=== PATIENT | female | born 1995 | race Caucasian/White ===

== ENCOUNTER 2018-11-26 20:22 | Inpatient (IN) | payer BC ==
[2018-11-26 21:01] LABS: Basophils % (A) 0 %; Eosinophils # (A) 0.2 k/uL (0-0.7); Eosinophils % (A) 1 %; HCT 36.9 % (34.0-46.0); HGB 12.4 gm/dL (11.4-16.0); Lymphocytes # (A) 1.4 k/uL (1.0-4.8); Lymphocytes % (A) 11 %; MCH 28.6 pg (25.0-35.0); MCHC 33.7 g/dL (31.0-37.0); Mean Platelet Volume 7.2; Monocytes # (A) 0.6 k/uL (0-1.0); Monocytes % (A) 4 %; Neutrophils % (A) 83 %; Platelet Count 274 k/uL (150-450); RBC 4.34 m/uL (3.80-5.40); RDW 14.2 % (11.5-15.5); WBC 13.3 k/uL (3.8-10.6)
[2018-11-26 21:16] LABS: Appearance,Urine Clear (Clear); Bilirubin,Urine Negative (Negative); Blood,Urine Moderate (Negative); Color,Urine Yellow; Glucose,Urine (UA) Negative (Negative); Ketones,Urine 4+ (Negative); Leukocyte Esterase,Urine Small (Negative); Mucus,Urine Rare /hpf; Nitrite,Urine Negative (Negative); Protein,Urine Trace (Negative); RBC,Urine 10 /hpf (0-5); Specific Gravity,Urine 1.023 (1.001-1.035); Squamous Epithelial Cell,Urine <1 /hpf (0-4); Urobilinogen,Urine <2.0 mg/dL (<2.0); WBC,Urine 1 /hpf (0-5)
[2018-11-26 21:20] LABS: Partial Thromboplastin Time 26.1 sec (22.0-30.0); Prothrombin Time 10.4 sec (9.0-12.0)
[2018-11-26 21:25] LABS: ALT 20 U/L (9-52); AST 23 U/L (14-36); African American GFR (CKD) >90 (>60 ml/min/1.73 sqM); Albumin 4.4 g/dL (3.5-5.0); Alkaline Phosphatase 81 U/L (38-126); Anion Gap 13 mmol/L; Blood Urea Nitrogen 14 mg/dL (7-17); Calcium 9.3 mg/dL (8.4-10.2); Carbon Dioxide 20 mmol/L (22-30); Chloride 105 mmol/L (98-107); Glucose 105 mg/dL (74-99); Potassium 4.2 mmol/L (3.5-5.1); Sodium 138 mmol/L (137-145); Total Bilirubin 0.6 mg/dL (0.2-1.3); Total Protein 7.5 g/dL (6.3-8.2)
[2018-11-26] MEDS ORDERED: SODIUM CHLORIDE 0.9% 1,000 ML IV STA ×2 (21:40→21:47)
[2018-11-26] MEDS ORDERED: SODIUM CHLORIDE 0.9% 500 ML 500 ML IV STA (21:40)
--- NOTE | 2018-11-26 23:01 | US ---
EXAM: US Pelvis Transvaginal CLINICAL HISTORY: fever RLQ pain TECHNIQUE: Real-time transvaginal pelvic ultrasound with image documentation. Transvaginal imaging was used for better evaluation of the endometrium and adnexa. COMPARISON: No relevant prior studies available. FINDINGS: Uterus/cervix: 6.7 x 5.2 x 4.2 cm Unremarkable. Normal endometrial stripe thickness 6.3 mm. No myometrial mass. Right ovary: 4.9 x 2.5 x 3.0 cm there is a 2.1 x 1.5 with 1.2 cm dominant follicular cyst. . Normal blood flow. Left ovary: 3.7 x 6.0 x 4.3 cm. There is septations of multiple cysts. These are not measured. There is free fluid around the left adnexa. No evidence for ovarian torsion. Flow. Free fluid: No free fluid. Bladder: Empty bladder which cannot be evaluated with this probe. IMPRESSION: Large cystic area not measured adjacent to the left ovary with septations. This is not clearly part of the left ovary. Free fluid noted adjacent to the left ovary The possibility of a large paraovarian cyst is not excluded. Unremarkable appearance to the right adnexa. No evidence for left or right ovarian torsion.
--- NOTE | 2018-11-26 23:05 | ED ---
General Adult HPI - General Chief complaint: Abdominal Pain Stated complaint: Abd pain Time Seen by Provider: 11/26/18 20:36 Source: patient, RN notes reviewed Mode of arrival: ambulatory Limitations: no limitations - History of Present Illness Initial comments: 23-year-old female presents to the emergency department for a chief complaint of abdominal pain. Patient states pain is mostly in the right lower quadrant. States it has been ongoing for the past 5 days. States the pain has been constant. Patient states she has had intermittent subjective fevers at home and has felt hot and cold on and off. States she also has referred pain to the left upper quadrant. Patient went to urgent care he was sent to the ER for ketones in the urine.Patient has no other complaints at this time including shortness of breath, chest pain, nausea or vomiting, headache, or visual changes. - Related Data Allergies Allergy/AdvReac Type Severity Reaction Status Date / Time No Known Allergies Allergy Verified 11/26/18 20:27 Review of Systems ROS Statement: Those systems with pertinent positive or pertinent negative responses have been documented in the HPI. ROS Other: All systems not noted in ROS Statement are negative. Past Medical History Past Medical History: No Reported History History of Any Multi-Drug Resistant Organisms: None Reported Past Surgical History: Appendectomy Additional Past Surgical History / Comment(s): breast reducion Past Psychological History: No Psychological Hx Reported Smoking Status: Never smoker Past Alcohol Use History: Occasional Past Drug Use History: None Reported General Exam Limitations: no limitations General appearance: alert, in no apparent distress Head exam: Present: atraumatic, normocephalic, normal inspection Eye exam: Present: normal appearance, PERRL, EOMI. Absent: scleral icterus, conjunctival injection, periorbital swelling ENT exam: Present: normal exam, mucous membranes moist Neck exam: Present: normal inspection, full ROM. Absent: tenderness, meningismus, lymphadenopathy Respiratory exam: Present: normal lung sounds bilaterally. Absent: respiratory distress, wheezes, rales, rhonchi, stridor Cardiovascular Exam: Present: regular rate, normal rhythm, normal heart sounds. Absent: systolic murmur, diastolic murmur, rubs, gallop, clicks GI/Abdominal exam: Present: soft, normal bowel sounds. Absent: distended, ten derness, guarding, rebound, rigid External exam: Present: normal external exam. Absent: erythema, swelling, lesions, lacerations, ecchymosis Speculum exam: Present: normal speculum exam. Absent: erythema, vaginal discharge, cervical discharge, vaginal bleeding, foreign body By manual exam: Present: adnexal tenderness (Right and left adnexal tenderness), uterine tenderness. Absent: normal by manual exam Back exam: Absent: CVA tenderness (R), CVA tenderness (L) Course Vital Signs 11/26/18 11/26/18 11/27/18 20:24 22:44 00:31 Temperature 99.5 F Pulse Rate 133 H 95 89 Respiratory 20 16 16 Rate Blood Pressure 138/85 117/68 106/59 O2 Sat by Pulse 97 98 97 Oximetry Medical Decision Making - Medical Decision Making 23-year-old female presents for a chief complaint of abdominal pain. Patient states pain is mostly in the right lower quadrant and has been ongoing for the past 5 days. Agrees it is also suprapubic as well. Patient states the pain has been constant. Patient thinks she has some intermittent fevers at home and has felt hot and cold on and off. Presentation patient was tachycardic at 133 which could be secondary to dehydration as she has 4+ ketones in her urine. Given 2 L of fluids. Afebrile here with a temperature of 99.5. On exam patient has some right lower quadrant and suprapubic tenderness as well as left upper quadrant tenderness. Pelvic exam did reveal uterine and right adnexal tenderness. No significant discharge. CBC and CMP were obtained. Patient has a white blood cell count of 13.3. CMP is unremarkable. Urine does show 4+ ketones as discussed as well as moderate blood. Ultrasound was initially obtained and showed a large cystic area not measured adjacent to the left ovary with septations. This is not clearly part of the left ovary. There is free fluid noted adjacent to the left ovary as well. Given this finding CT was ordered to further characterize possible cyst.On CT a dilated tubular structure in the right adnexa which does not appear to be bowel was noted. Possible representation of [place] salpinx/pyosalpinx. Correlate with PID. Left ovary measures 4 cm. 3 times a day is more consistent with patient's history of right lower quadrant pain and intermittent fevers. Patient is engaged and did not con siders herself to be at risk for STDs. Trichomonas so far has been negative. Gonorrhea and chlamydia are pending. Dr. Simon was consulted as patient does not have an TEND[facility]OR who recommends inpatient admission to medicine with IV antibiotics on board. Dr Miller accepts admission. - Lab Data Result diagrams: 11/26/18 20:46 11/26/18 20:46 Lab Results 11/26/18 11/26/18 11/26/18 Range/Units 20:46 20:46 20:46 WBC 13.3 H (3.8-10.6) k/uL RBC 4.34 (3.80-5.40) m/uL Hgb 12.4 (11.4-16.0) gm/dL Hct 36.9 (34.0-46.0) % MCV 85.0 (80.0-100.0) fL MCH 28.6 (25.0-35.0) pg MCHC 33.7 (31.0-37.0) g/dL RDW 14.2 (11.5-15.5) % Plt Count 274 (150-450) k/uL Neutrophils % 83 % Lymphocytes % 11 % Monocytes % 4 % Eosinophils % 1 % Basophils % 0 % Neutrophils # 11.0 H (1.3-7.7) k/uL Lymphocytes # 1.4 (1.0-4.8) k/uL Monocytes # 0.6 (0-1.0) k/uL Eosinophils # 0.2 (0-0.7) k/uL Basophils # 0.0 (0-0.2) k/uL PT (9.0-12.0) sec INR (<1.2) APTT (22.0-30.0) sec Sodium 138 (137-145) mmol/L Potassium 4.2 (3.5-5.1) mmol/L Chloride 105 (98-107) mmol/L Carbon Dioxide 20 L (22-30) mmol/L Anion Gap 13 mmol/L BUN 14 (7-17) mg/dL Creatinine 0.63 (0.52-1.04) mg/dL Est GFR (CKD-EPI)AfAm >90 (>60 ml/min/1.73 sqM) Est GFR (CKD-EPI)NonAf >90 (>60 ml/min/1.73 sqM) Glucose 105 H (74-99) mg/dL Plasma Lactic Acid Willian 0.7 (0.7-2.0) mmol/L Calcium 9.3 (8.4-10.2) mg/dL Total Bilirubin 0.6 (0.2-1.3) mg/dL AST 23 (14-36) U/L ALT 20 (9-52) U/L Alkaline Phosphatase 81 (38-126) U/L Total Protein 7.5 (6.3-8.2) g/dL Albumin 4.4 (3.5-5.0) g/dL Urine Color Urine Appearance (Clear) Urine pH (5.0-8.0) Ur Specific [place] (1.001-1.035) Urine Protein (Negative) Urine Glucose (UA) (Negative) Urine Ketones (Negative) Urine Blood (Negative) Urine Nitrite (Negative) Urine Bilirubin (Negative) Urine Urobilinogen (<2.0) mg/dL Ur Leukocyte Esterase (Negative) Urine RBC (0-5) /hpf Urine WBC (0-5) /hpf Ur Squamous Epith Cells (0-4) /hpf Urine Mucus (None) /hpf Urine HCG, Qual (Not Detectd) Trichomonas Ag (Rapid) (Negative) 11/26/18 11/26/18 11/26/18 Range/Units 20:46 21:00 21:00 WBC (3.8-10.6) k/uL RBC (3.80-5.40) m/uL Hgb (11.4-16.0) gm/dL Hct (34.0-46.0) % MCV (80.0-100.0) fL MCH (25.0-35.0) pg MCHC (31.0-37.0) g/dL RDW (11.5-15.5) % Plt Count (150-450) k/uL Neutrophils % % Lymphocytes % % Monocytes % % Eosinophils % % Basophils % % Neutrophils # (1.3-7.7) k/uL Lymphocytes # (1.0-4.8) k/uL Monocytes # (0-1.0) k/uL Eosinophils # (0-0.7) k/uL Basophils # (0-0.2) k/uL PT 10.4 (9.0-12.0) sec INR 1.0 (<1.2) APTT 26.1 (22.0-30.0) sec Sodium (137-145) mmol/L Potassium (3.5-5.1) mmol/L Chloride (98-107) mmol/L Carbon Dioxide (22-30) mmol/L Anion Gap mmol/L BUN (7-17) mg/dL Creatinine (0.52-1.04) mg/dL Est GFR (CKD-EPI)AfAm (>60 ml/min/1.73 sqM) Est GFR (CKD-EPI)NonAf (>60 ml/min/1.73 sqM) Glucose (74-99) mg/dL Plasma Lactic Acid Willian (0.7-2.0) mmol/L Calcium (8.4-10.2) mg/dL Total Bilirubin (0.2-1.3) mg/dL AST (14-36) U/L ALT (9-52) U/L Alkaline Phosphatase (38-126) U/L Total Protein (6.3-8.2) g/dL Albumin (3.5-5.0) g/dL Urine Color Yellow Urine Appearance Clear (Clear) Urine pH 6.0 (5.0-8.0) Ur Specific [place] 1.023 (1.001-1.035) Urine Protein Trace H (Negative) Urine Glucose (UA) Negative (Negative) Urine Ketones 4+ H (Negative) Urine Blood Moderate H (Negative) Urine Nitrite Negative (Negative) Urine Bilirubin Negative (Negative) Urine Urobilinogen <2.0 (<2.0) mg/dL Ur Leukocyte Esterase Small H (Negative) Urine RBC 10 H (0-5) /hpf Urine WBC 1 (0-5) /hpf Ur Squamous Epith Cells <1 (0-4) /hpf Urine Mucus Rare H (None) /hpf Urine HCG, Qual Not Detected (Not Detectd) Trichomonas Ag (Rapid) (Negative) 11/26/18 Range/Units 22:06 WBC (3.8-10.6) k/uL RBC (3.80-5.40) m/uL Hgb (11.4-16.0) gm/dL Hct (34.0-46.0) % MCV (80.0-100.0) fL MCH (25.0-35.0) pg MCHC (31.0-37.0) g/dL RDW (11.5-15.5) % Plt Count (150-450) k/uL Neutrophils % % Lymphocytes % % Monocytes % % Eosinophils % % Basophils % % Neutrophils # (1.3-7.7) k/uL Lymphocytes # (1.0-4.8) k/uL Monocytes # (0-1.0) k/uL Eosinophils # (0-0.7) k/uL Basophils # (0-0.2) k/uL PT (9.0-12.0) sec INR (<1.2) APTT (22.0-30.0) sec Sodium (137-145) mmol/L Potassium (3.5-5.1) mmol/L Chloride (98-107) mmol/L Carbon Dioxide (22-30) mmol/L Anion Gap mmol/L BUN (7-17) mg/dL Creatinine (0.52-1.04) mg/dL Est GFR (CKD-EPI)AfAm (>60 ml/min/1.73 sqM) Est GFR (CKD-EPI)NonAf (>60 ml/min/1.73 sqM) Glucose (74-99) mg/dL Plasma Lactic Acid Willian (0.7-2.0) mmol/L Calcium (8.4-10.2) mg/dL Total Bilirubin (0.2-1.3) mg/dL AST (14-36) U/L ALT (9-52) U/L Alkaline Phosphatase (38-126) U/L Total Protein (6.3-8.2) g/dL Albumin (3.5-5.0) g/dL Urine Color Urine Appearance (Clear) Urine pH (5.0-8.0) Ur Specific [place] (1.001-1.035) Urine Protein (Negative) Urine Glucose (UA) (Negative) Urine Ketones (Negative) Urine Blood (Negative) Urine Nitrite (Negative) Urine Bilirubin (Negative) Urine Urobilinogen (<2.0) mg/dL Ur Leukocyte Esterase (Negative) Urine RBC (0-5) /hpf Urine WBC (0-5) /hpf Ur Squamous Epith Cells (0-4) /hpf Urine Mucus (None) /hpf Urine HCG, Qual (Not Detectd) Trichomonas Ag (Rapid) Negative (Negative) Disposition Clinical Impression: Pelvic pain, PID (acute pelvic inflammatory disease) Disposition: HOME SELF-CARE Condition: Good Instructions (If sedation given, give patient instructions): Pelvic Inflammatory Disease (ED) Additional Instructions: please take antibiotic as directed. Please follow-up with TENDER LABOR in one to 2 days. Please return to the emergency department if you have any worsening symptoms. Is patient prescribed a controlled substance at d/c from ED?: No Referrals: Mushtaq Whittaker MD [Primary Care Provider] - 1-2 days Ubaldo Simon MD [STAFF PHYSICIAN] - 1-2 days Time of Disposition: 01:30
[2018-11-26] MEDS ORDERED: KETOROLAC 30 MG/ML 1 ML VIAL IVP STA (23:20)
--- NOTE | 2018-11-27 00:49 | CT ---
EXAM: CT Abdomen and Pelvis With Intravenous Contrast CLINICAL HISTORY: ITS.REASON CT Reason: characterize ovairan cyst, h/o subjective fevers TECHNIQUE: Axial computed tomography images of the abdomen and pelvis with intravenous contrast. CTDI is 13 mGy and DLP is 530 mGy-cm. This CT exam was performed using one or more of the following dose reduction techniques: automated exposure control, adjustment of the mA and/or kV according to patient size, and/or use of iterative reconstruction technique. COMPARISON: Pelvic ultrasound 11/26/18 FINDINGS: Lung bases: No mass. No consolidation. ABDOMEN: Liver: Unremarkable. Gallbladder and bile ducts: Unremarkable. Pancreas: Unremarkable. Spleen: Unremarkable. Adrenals: Unremarkable. Kidneys and ureters: No hydronephrosis. 3 on the right and 1 on the left nonobstructive stones in the kidneys. Stomach and bowel: No bowel obstruction. No bowel wall thickening. PELVIS: Appendix: No evidence of appendicitis. Bladder: Unremarkable. Reproductive: Dilated tubular structure in the right adnexa. Left ovary measures approximately 4 cm. ABDOMEN and PELVIS: Intraperitoneal space: Mild pelvic free fluid. Bones/joints: No acute fractures. Soft tissues: Unremarkable. Vasculature: No abdominal aortic aneurysm. Lymph nodes: No enlarged lymph nodes. IMPRESSION: 1. Mild pelvic free fluid. There appears be a dilated tubular structure in the right adnexa which does not appear to be bowel. May represent hydrosalpinx/pyosalpinx. Correlate with PID. Left ovary measures proximally 4 cm as seen on the ultrasound. 2. Nonobstructive nephrolithiasis bilaterally.
[2018-11-27] MEDS ORDERED: DOXYCYCLINE 100 MG CAP PO STA (01:28)
[2018-11-27] MEDS ORDERED: cefTRIAXone 250 MG VIAL IM STA (01:28)
[2018-11-27] MEDS ORDERED: DOXYCYCLINE 100 MG in SODIUM CHLORIDE 0.9% 100 ML IVPB SCH (01:45)
[2018-11-27] MEDS ORDERED: NALOXONE 0.4 MG/ML 1 ML VIAL IV PRN (01:59)
[2018-11-27] MEDS ORDERED: MORPHINE SULFATE 4 MG/ML SYRINGE IV PRN (01:59)
[2018-11-27] MEDS: SODIUM CHLORIDE 0.9% 1,000 ML IV SCH ×3 (02:55→18:55)
--- NOTE | 2018-11-27 04:00 | P.HPIM ---
History of Present Illness H&P Date: 11/27/18 Patient is a 19 year-old female with no known past medical history who presented to the ED with complaints of right lower quadrant abdominal pain with radiation throughout her lower abdomen. The patient notes that the pain started 5 days ago, which she initially attributed to have maybe having stomach virus, was initially a 3 out of 10, and worsened to a 10 out of 10 earlier today, at which time she decided to come to the ED. She notes that it is a 7 out of 10 at the time of interview, constant, radiating throughout the lower abdomen, aching in nature, with no alleviating or exacerbating features. The patient did endorse some associated nausea without vomiting. The patient notes that she has never had such symptoms the past. Patient underwent an extensive evaluation in the emergency room with an abdomen pelvis computed tomography scan revealing mild pelvic free fluid along with a dilated tubular structure in the right adnexa. Laboratory evaluation revealed a WBC count of 13.3, hemoglobin 12.4, platelets 274, sodium 138, potassium 4.2, BUN 14, creatinine 0.63, and lactic acid 0.7. The patient is subsequently being admitted to the medicine service for further management of sepsis secondary to pelvic inflammatory disease and possible tubo-ovarian abscess. Review of Systems Pertinent positives and negatives as discussed in HPI, a complete review of systems was performed and all other systems are negative. Past Medical History Past Medical History: No Reported History History of Any Multi-Drug Resistant Organisms: None Reported Past Surgical History: Appendectomy Additional Past Surgical History / Comment(s): breast reducion Past Psychological History: No Psychological Hx Reported Smoking Status: Never smoker Past Alcohol Use History: Occasional Past Drug Use History: None Reported Medications and Allergies Allergies Allergy/AdvReac Type Severity Reaction Status Date / Time No Known Allergies Allergy Verified 11/27/18 02:58 Physical Exam Vitals: Vital Signs Temp Pulse Resp BP Pulse Ox 11/27/18 00:31 89 16 106/59 97 11/26/18 22:44 95 16 117/68 98 11/26/18 20:24 99.5 F 133 H 20 138/85 97 Intake and Output 11/26/18 11/26/18 11/27/18 14:59 22:59 06:59 Other: Weight 100.698 kg General: non toxic, no distress, appears at stated age, obese Derm: no unusual rashes/lesions no unusual ecchymoses, warm, dry Head: atraumatic, normocephalic, symmetric Eyes: EOMI, no lid lag, anicteric sclera, pupils equal round reactive to light ENT: Nose and ears atraumatic, no thrush, no pharyngeal erythema Neck: No thyromegaly, no cervical lymphadenopathy, trachea midline, supple Mouth: no lip lesion, mucus membranes moist Cardiovascular: S1S2 reg, no murmur, positive posterior tibial pulse bilateral, no edema, capillary refill less than 2 seconds Lungs: CTA bilateral, no rhonchi, no rales , no accessory muscle use Abdominal: soft, mild diffuse lower abdominal tenderness, no guarding, no appreciable organomegaly, normal bowel sounds Ext: no gross muscle atrophy, muscle strength 5 out of 5 in all 4 extremities grossly, no contractures, Neuro: CN II-XI grossly intact, light touch intact all 4 extremities, finger to nose within normal limits, Psych: Alert, oriented, appropriate affect Results CBC & Chem 7: 11/26/18 20:46 11/26/18 20:46 Labs: Abnormal Lab Results - Last 24 Hours (Table) 11/26/18 11/26/18 11/26/18 Range/Units 20:46 20:46 21:00 WBC 13.3 H (3.8-10.6) k/uL Neutrophils # 11.0 H (1.3-7.7) k/uL Carbon Dioxide 20 L (22-30) mmol/L Glucose 105 H (74-99) mg/dL Urine Protein Trace H (Negative) Urine Ketones 4+ H (Negative) Urine Blood Moderate H (Negative) Ur Leukocyte Esterase Small H (Negative) Urine RBC 10 H (0-5) /hpf Urine Mucus Rare H (None) /hpf Assessment and Plan Plan: Sepsis secondary to pelvic inflammatory disease, possible tubo-ovarian abscess -DIRECTOR MATERNAL CHILD consulted -Continue with cefoxitin and doxycycline -Continue with IV fluids -Follow up blood cultures -Follow-up chlamydia and gonorrhea testing -Follow up urine culture DVT prophylaxis -Lovenox The patient is admitted with an anticipated less than 2 midnight stay for evaluation of sepsis CODE STATUS: Full Code Discussed with: Patient Anticipated discharge date: 11/29/[address]: Home A total of 35 minutes was spent on the care of this complex patient more than 50% of the time was spent in counseling and care coordination.
[2018-11-27] MEDS ORDERED: ACETAMINOPHEN TAB 325 MG TAB PO PRN (06:11)
[2018-11-27] MEDS: IBUPROFEN 400 MG TAB PO PRN ×2 (06:48→13:14)
--- NOTE | 2018-11-27 06:49 | P.HPOB ---
History of Present Illness H&P Date: 11/27/18 Chief Complaint: Abdominal pelvic pain and fever This patient is a pleasant 23-year-old 0 para 0 female who presents to the emergency department with complaints of lower pelvic pain has been going on since the middle of last week. Patient also developed a fever. Patient states that she began having upper abdominal and epigastric type discomfort and went to an urgent care. At that time she had a temperature to 100.7 and was given Tylenol for her discomfort. Patient states that the pain migrated more to her lower pelvic area more on the right side that she continue to have some fevers and therefore presented to the emergency department. She denies any vaginal discharge. She's been in a monogamous relationship for approximately 3 years and believes she was sexually active maybe a week or 2 ago. She is not currently using anything for contraception states that it is okay if she were to become although they're not actively trying. Evaluation in the emergency department shows an elevated white count to 13.3 and a temperature of 99 5. Ultrasound and CAT scan were done. Suggestion of a tubular structure on the CAT scan on the right side all the ultrasound really does not confirm this. There is a follicular cyst on the left side. Patient does have a past medical history significant for appendectomy and breast reductive surgery. Patient is now being admitted for IV antibiotics due to suspected pelvic inflammatory disease. Review of Systems Constitutional: Reports as per HPI Genitourinary: Reports as per HPI Past Medical History Past Medical History: No Reported History History of Any Multi-Drug Resistant Organisms: None Reported Past Surgical History: Appendectomy Additional Past Surgical History / Comment(s): Breast reductive surgery Past Psychological History: No Psychological Hx Reported Smoking Status: Never smoker Past Alcohol Use History: Occasional Past Drug Use History: None Reported - Past Family History Mother Family Medical History: Diabetes Mellitus Additional Family Medical History / Comment(s): Gestational DM Medications and Allergies Allergies Allergy/AdvReac Type Severity Reaction Status Date / Time No Known Allergies Allergy Verified 11/27/18 04:00 Exam Vital Signs Temp Pulse Pulse Resp BP BP Pulse Ox 11/27/18 04:47 99 16 11/27/18 03:30 98.6 F 90 18 145/74 99 11/27/18 00:31 89 16 106/59 97 11/26/18 22:44 95 16 117/68 98 11/26/18 20:24 99.5 F 133 H 20 138/85 97 Intake and Output 11/26/18 11/26/18 11/27/18 14:59 22:59 06:59 Other: Voiding Method Toilet # Voids 1 Weight 100.698 kg - OBG Physical Exam Abdomen: bowel sounds normal (Patient is tender to deep palpation on the right side), no diffuse tenderness, no bruit present, no guarding noted, no hepatomegaly, no splenomegaly, no mass Patient had a pelvic exam in the ER that per the emergency room physician was unremarkable Results Please see the CAT scan and ultrasound report. Patient had a questionable tubular area separate from the ovary on the right side on CAT scan. Result Diagrams: 11/26/18 20:46 11/26/18 20:46 Abnormal Lab Results - Last 24 Hours (Table) 11/26/18 11/26/18 11/26/18 Range/Units 20:46 20:46 21:00 WBC 13.3 H (3.8-10.6) k/uL Neutrophils # 11.0 H (1.3-7.7) k/uL Carbon Dioxide 20 L (22-30) mmol/L Glucose 105 H (74-99) mg/dL Urine Protein Trace H (Negative) Urine Ketones 4+ H (Negative) Urine Blood Moderate H (Negative) Ur Leukocyte Esterase Small H (Negative) Urine RBC 10 H (0-5) /hpf Urine Mucus Rare H (None) /hpf Assessment and Plan Assessment: This is a pleasant 23-year-old 0 para 0 female with a 5 day history of mid abdominal lower pelvic pain. Although patient is in a long-term monogamous relationship, given the elevated white count, temperature to 100.7, and cystic area on the right side of the pelvis we must assume that she has pelvic inflammatory disease. Certainly this could be gastrointestinal in nature although besides nausea she is not really having any vomiting or diarrhea. Since she is young and has had no children I recommended admission for aggressive treatment with IV antibiotics, serial CBC, and observation. Plan is to continue IV antibiotics for 24-48 hours. If she remains afebrile and the WBC decreases she was in brief discharged on oral antibiotics and have a follow-up pelvic ultrasound with me in approximately 6 weeks. I will continue to follow with you. (1) PID (acute pelvic inflammatory disease) Current Visit: Yes Status: Acute Code(s): N73.0 - ACUTE PARAMETRITIS AND PELVIC CELLULITIS SNOMED Code(s): 022875942
[2018-11-27 10:16] LABS: HCT 30.7 % (34.0-46.0); HGB 10.9 gm/dL (11.4-16.0); MCH 30.5 pg (25.0-35.0); MCHC 35.4 g/dL (31.0-37.0); MCV 86.2 fL (80.0-100.0); Mean Platelet Volume 6.7; Platelet Count 195 k/uL (150-450); RBC 3.56 m/uL (3.80-5.40); RDW 12.7 % (11.5-15.5); WBC 7.5 k/uL (3.8-10.6)
[2018-11-27 10:44] LABS: African American GFR (CKD) >90 (>60 ml/min/1.73 sqM); Anion Gap 8 mmol/L; Blood Urea Nitrogen 10 mg/dL (7-17); Calcium 8.1 mg/dL (8.4-10.2); Carbon Dioxide 21 mmol/L (22-30); Chloride 109 mmol/L (98-107); Glucose 106 mg/dL (74-99); Sodium 138 mmol/L (137-145)
[2018-11-27] MEDS: LORATADINE 10 MG TAB PO SCH (13:40)
[2018-11-27 14:55] LABS: C. trachomatis,PCR Negative (Neg,Equiv); Chlamydia trachomatis Source Vagina
[2018-11-27 16:20] LABS: N. gonorrhoeae,PCR Negative (Neg,Equiv); Neisseria Source Vagina
--- NOTE | 2018-11-27 16:20 | P.PN ---
Subjective Progress Note Date: 11/27/18 Principal diagnosis: abdominal pain Patient is a 23 -year-old female with no known past medical history who presented to the ER with complaints of right lower quadrant pain. In the ER she underwent an extensive evaluation. She initially was seen at urgent care and was sent into the ER for ketone area. Her vital signs within normal limits. Laboratory analysis showed an elevated white blood cell count 13.3, CO2 of 20, urinalysis showed ketones with moderate blood and small leukocyte esterase. She underwent a transvaginal ultrasound showed a large cystic area that she shouldn't to the left ovary with septations and unremarkable right adnexa. CT abdomen and pelvis which showed mild 3 fluid within the pelvis as well as a dilated tubular structure in the right adnexa. She was started on IV antibiotics and IV fluids. She was admitted for further monitoring and care. She was seen by WELFARE ELIGIBILITY WORKER who felt she likely had pelvic inflammatory disease and recommended antibiotics and repeat ultrasound in 6 weeks. Initial chlamydia and Trichomonas came back negative. Patient seen and examined at bedside. She continues to have some lower abdominal pain, mild nausea no vomiting, normal bowel movements, no chest pain or shortness of breath at this time. Does not like narcotics would prefer Motrin or Tylenol if it is able to control her pain. Reports that she has had multiple episodes of urinary tract infections. Has never had a pelvic exam prior. Objective - Vital Signs Vital signs: Vital Signs Temp 98.6 F 11/27/18 12:02 Pulse 91 11/27/18 12:02 Resp 20 11/27/18 12:02 BP 118/77 11/27/18 12:02 Pulse Ox 100 11/27/18 12:02 Intake & Output 11/26/18 11/27/18 11/27/18 18:59 06:59 18:59 Intake Total 600 Balance 600 Weight 100.698 kg Intake: Oral 600 Other: Voiding Method Toilet # Voids 1 - Exam General: non toxic, no distress, appears at stated age Derm: warm, dry Head: atraumatic, normocephalic, symmetric Eyes: EOMI, no lid lag, anicteric sclera Mouth: no lip lesion, mucus membranes moist Cardiovascular: S1S2 reg, no murmur, positive posterior tibial pulse bilateral, Lungs: CTA bilateral, no rhonchi, no rales , no accessory muscle use Abdominal: soft, + tender to palpation RLQ and LLQ, no guarding, no appreciable organomegaly Ext: no gross muscle atrophy, no edema, no contractures Neuro: CN II-XI grossly intact, no focal neuro deficits Psych: Alert, oriented, appropriate affect - Labs CBC & Chem 7: 11/27/18 10:01 11/27/18 10:01 Labs: Abnormal Lab Results - Last 24 Hours (Table) 11/26/18 11/26/18 11/26/18 Range/Units 20:46 20:46 21:00 WBC 13.3 H (3.8-10.6) k/uL RBC (3.80-5.40) m/uL Hgb (11.4-16.0) gm/dL Hct (34.0-46.0) % Neutrophils # 11.0 H (1.3-7.7) k/uL Chloride (98-107) mmol/L Carbon Dioxide 20 L (22-30) mmol/L Glucose 105 H (74-99) mg/dL Calcium (8.4-10.2) mg/dL Urine Protein Trace H (Negative) Urine Ketones 4+ H (Negative) Urine Blood Moderate H (Negative) Ur Leukocyte Esterase Small H (Negative) Urine RBC 10 H (0-5) /hpf Urine Mucus Rare H (None) /hpf 11/27/18 11/27/18 Range/Units 10:01 10:01 WBC (3.8-10.6) k/uL RBC 3.56 L (3.80-5.40) m/uL Hgb 10.9 L (11.4-16.0) gm/dL Hct 30.7 L (34.0-46.0) % Neutrophils # (1.3-7.7) k/uL Chloride 109 H (98-107) mmol/L Carbon Dioxide 21 L (22-30) mmol/L Glucose 106 H (74-99) mg/dL Calcium 8.1 L (8.4-10.2) mg/dL Urine Protein (Negative) Urine Ketones (Negative) Urine Blood (Negative) Ur Leukocyte Esterase (Negative) Urine RBC (0-5) /hpf Urine Mucus (None) /hpf Microbiology - Last 24 Hours (Table) 11/26/18 21:00 Urine Culture - Preliminary Urine,Voided Assessment and Plan Assessment: Probable pelvic inflammatory disease with sepsis -Continue with cefoxitin and doxycycline -Continue IV fluids -Await blood cultures -Chlamydia and Trichomonas negative, gonorrhea pending -Await urine culture. No signs of infection on initial urinalysis. Obesity with BMI 33.8 -Structured outpatient weight loss Ketonuria -The likely secondary to poor oral intake DVT prophylaxis: early ambulation Discussed with: patient, nursing Anticipated discharge: 1-[address]: home A total of 25 minutes was spent on the care of this complex patient more than 50% of the time was spent in counseling and care coordination.
[2018-11-27] MEDS: DOXYCYCLINE 100 MG in SODIUM CHLORIDE 0.9% 100 ML IVPB SCH (16:49)
[2018-11-27] MEDS: IBUPROFEN 800 MG TAB PO PRN (18:53)
[2018-11-27] MEDS: ACETAMINOPHEN TAB 325 MG TAB PO PRN (20:45)
[2018-11-28] MEDS: IBUPROFEN 800 MG TAB PO PRN ×2 (03:05→13:23)
[2018-11-28] MEDS: SODIUM CHLORIDE 0.9% 1,000 ML IV SCH ×3 (03:05→20:10)
[2018-11-28] MEDS: DOXYCYCLINE 100 MG in SODIUM CHLORIDE 0.9% 100 ML IVPB SCH ×2 (03:52→16:50)
[2018-11-28] MEDS: ONDANSETRON 4 MG/2 ML VIAL IVP PRN ×3 (03:52→17:40)
[2018-11-28 05:22] LABS: Basophils % (A) 1 %; Eosinophils # (A) 0.1 k/uL (0-0.7); Eosinophils % (A) 1 %; HCT 30.4 % (34.0-46.0); HGB 10.3 gm/dL (11.4-16.0); Lymphocytes # (A) 0.6 k/uL (1.0-4.8); Lymphocytes % (A) 12 %; MCH 29.4 pg (25.0-35.0); MCV 86.5 fL (80.0-100.0); Mean Platelet Volume 7.1; Monocytes # (A) 0.3 k/uL (0-1.0); Monocytes % (A) 7 %; Neutrophils # (A) 3.8 k/uL (1.3-7.7); Neutrophils % (A) 79 %; Platelet Count 187 k/uL (150-450); RBC 3.51 m/uL (3.80-5.40); RDW 14.1 % (11.5-15.5); WBC 4.9 k/uL (3.8-10.6)
[2018-11-28 05:31] LABS: African American GFR (CKD) >90 (>60 ml/min/1.73 sqM); Anion Gap 10 mmol/L; Blood Urea Nitrogen 7 mg/dL (7-17); Calcium 8.2 mg/dL (8.4-10.2); Carbon Dioxide 20 mmol/L (22-30); Chloride 109 mmol/L (98-107); Glucose 141 mg/dL (74-99); Potassium 3.7 mmol/L (3.5-5.1); Sodium 139 mmol/L (137-145)
--- NOTE | 2018-11-28 06:31 | P.PN ---
Progress Note - Text Progress Note Date: 11/28/18 Hospital day #2. Patient is resting without complaints. Currently the patient is afebrile however she did have a temperature to 101.8 last evening. Patient states that she's feeling better and is having no nausea vomiting and only occasional lower right-sided pain. Cultures for gonorrhea and Chlamydia have been negative. Exam shows her abdomen obese soft nontender without rebound or guarding. My impression this is a resolving pelvic inflammatory disease. Due to her spiking a temperature last night I believe she'll continue in-house hospitalization for IV antibiotics and most likely discharge home tomorrow on oral regimen. White blood cell count has come back down to normal.
[2018-11-28] MEDS: ACETAMINOPHEN TAB 325 MG TAB PO PRN ×2 (08:31→17:21)
[2018-11-28] MEDS: LORATADINE 10 MG TAB PO SCH (08:42)
[2018-11-28] MEDS ORDERED: MORPHINE SULFATE 4 MG/ML SYRINGE IVP STA (14:16)
[2018-11-28] MEDS ORDERED: KETOROLAC 30 MG/ML 1 ML VIAL IVP STA (14:36)
[2018-11-28] MEDS ORDERED: SODIUM CHLORIDE 0.9% 500 ML 500 ML IV ONE ×2 (14:37→17:28)
--- NOTE | 2018-11-28 15:26 | XR ---
EXAMINATION TYPE: XR abdomen acute w cxr DATE OF EXAM: 11/28/2018 COMPARISON: NONE HISTORY: 23-year-old female with abdominal pain TECHNIQUE: Supine, upright, and left side down lateral decubitus views of the abdomen are obtained. FINDINGS: Frontal view of the chest shows normal heart size, aorta, and pulmonary vasculature. Hazy lower lung densities related to overlying soft tissue. No consolidation or pleural effusion. No evidence for free intraperitoneal air. Mild scattered punctate hyperdense debris within the transverse colon and splenic flexure likely rela ting to some type of ingestion. [id number] stool right hemicolon. No dilated small bowel or air-fluid levels. Suspect a nonobstructive 2 mm right renal calculus. IMPRESSION: 1. No acute cardiopulmonary process. 2. No evidence for free air or bowel obstruction. 3. Mild scattered punctate hyperdense debris in the transverse colon and splenic flexure likely relat ing to some type of ingestion such as antacids, Pepto-Bismol, multivitamin, iron, or some other type of heavy metal. Clinically correlate. 4. Suspect a 2 mm nonobstructive right renal calculus.
--- NOTE | 2018-11-28 17:04 | P.GSCN ---
History of Present Illness Consult date: 11/28/18 Reason for Consult: Abdominal pain History of present illness: 23-year-old female presents to the hospital after 4-5 days worth of abdominal pa in. She came to the hospital two evenings ago. Pain was in the right lower quadrant. She did felt feverish at home. History of previous appendectomy 6 years ago. Similar symptoms at that time. No diarrhea or constipation. Patient was found to be tender on pelvic examination. No significant vaginal discharge is noted however. Cultures thus far negative. CAT scan was performed. CAT scan shows what appears represent a dilated right fallopian tube. Mild inflammation in that area. Appendix not visualized with certainty. Some constipation. CAT scan was performed with IV but no oral contrast. Pelvic ultrasound showed abnormalities in the left but not on the right. She has been on IV antibiotics for suspected pelvic inflammatory disease. T-max 103 today. White blood cell count normalized now. Review of Systems The patient denies any acute changes in vision or hearing, no dysphagia or odynophagia, no chest pain or shortness of breath, no dysuria or hematuria, no headache, no runny nose, no rectal bleeding or melena, no unexplained weight loss Past Medical History Past Medical History: No Reported History History of Any Multi-Drug Resistant Organisms: None Reported Past Surgical History: Appendectomy Additional Past Surgical History / Comment(s): Breast reductive surgery Past Psychological History: No Psychological Hx Reported Smoking Status: Never smoker Past Alcohol Use History: Occasional Past Drug Use History: None Reported - Past Family History Mother Family Medical History: Diabetes Mellitus Additional Family Medical History / Comment(s): Gestational DM Medications and Allergies Home Medications Medication Instructions Recorded Confirmed Type No Known Home Medications 11/27/18 11/27/18 History Allergies Allergy/AdvReac Type Severity Reaction Status Date / Time No Known Allergies Allergy Verified 11/27/18 07:50 Surgical - Exam Vital Signs Temp Pulse Resp BP Pulse Ox 99.5 F 133 H 20 138/85 97 11/26/18 20:24 11/26/18 20:24 11/26/18 20:24 11/26/18 20:24 11/26/18 20:24 Physical exam: General: Well-developed, well-nourished HEENT: Normocephalic, sclerae nonicteric Abdomen: Mild distention, mild diffuse tenderness increased in the right lower quadrant where it would be considered moderate, no rebound or guarding Extremities: No edema Neuro: Alert and oriented Results - Labs 11/28/18 05:01 11/28/18 05:01 Abnormal Lab Results - Last 24 Hours (Table) 11/28/18 11/28/18 Range/Units 05:01 05:01 RBC 3.51 L (3.80-5.40) m/uL Hgb 10.3 L (11.4-16.0) gm/dL Hct 30.4 L (34.0-46.0) % Lymphocytes # 0.6 L (1.0-4.8) k/uL Chloride 109 H (98-107) mmol/L Carbon Dioxide 20 L (22-30) mmol/L Glucose 141 H (74-99) mg/dL Calcium 8.2 L (8.4-10.2) mg/dL Microbiology - Last 24 Hours (Table) 11/26/18 21:00 Urine Culture - Final Urine,Voided 11/26/18 20:46 Blood Culture - Preliminary Blood No Growth after 24 hours Diabetes panel 11/28/18 Range/Units 05:01 Sodium 139 (137-145) mmol/L Potassium 3.7 (3.5-5.1) mmol/L Chloride 109 H (98-107) mmol/L Carbon Dioxide 20 L (22-30) mmol/L BUN 7 (7-17) mg/dL Creatinine 0.52 (0.52-1.04) mg/dL Glucose 141 H (74-99) mg/dL Calcium 8.2 L (8.4-10.2) mg/dL Calcium panel 11/28/18 Range/Units 05:01 Calcium 8.2 L (8.4-10.2) mg/dL Pituitary panel 11/28/18 Range/Units 05:01 Sodium 139 (137-145) mmol/L Potassium 3.7 (3.5-5.1) mmol/L Chloride 109 H (98-107) mmol/L Carbon Dioxide 20 L (22-30) mmol/L BUN 7 (7-17) mg/dL Creatinine 0.52 (0.52-1.04) mg/dL Glucose 141 H (74-99) mg/dL Calcium 8.2 L (8.4-10.2) mg/dL Adrenal panel 11/28/18 Range/Units 05:01 Sodium 139 (137-145) mmol/L Potassium 3.7 (3.5-5.1) mmol/L Chloride 109 H (98-107) mmol/L Carbon Dioxide 20 L (22-30) mmol/L BUN 7 (7-17) mg/dL Creatinine 0.52 (0.52-1.04) mg/dL Glucose 141 H (74-99) mg/dL Calcium 8.2 L (8.4-10.2) mg/dL Assessment and Plan (1) PID (acute pelvic inflammatory disease) Narrative/Plan: CAT scan findings and persistent fevers suspicious for tubo-ovarian abscess. Agree with plans for repeat CAT scan. This will be ordered. Continue IV antibiotics. Will follow along with you and gynecology. If the patient's symptoms persist may require diagnostic laparoscopy. Current Visit: Yes Status: Acute Code(s): N73.0 - ACUTE PARAMETRITIS AND PELVIC CELLULITIS SNOMED Code(s): 598920677
[2018-11-28] MEDS ORDERED: ACETAMINOPHEN TAB 325 MG TAB PO STA (18:44)
[2018-11-28] MEDS ORDERED: IOPAMIDOL-300 CONTRAST 30 ML VIAL (ORAL USE) PO PRN (19:16)
[2018-11-28] MEDS: IOPAMIDOL-300 CONTRAST 30 ML VIAL (ORAL USE) PO PRN ×2 (19:33→20:24)
[2018-11-28] MEDS: PIPERACILLIN-TAZOBACTAM 3.375 GM in SODIUM CHLORIDE 0.9% 100 ML IVPB SCH (20:12)
--- NOTE | 2018-11-28 20:35 | P.PN ---
Subjective Progress Note Date: 11/28/18 (Delayed charting seen at 1410) Principal diagnosis: abdominal pain Patient is a 23 -year-old female with no known past medical history who presented to the ER with complaints of right lower quadrant pain. In the ER she underwent an extensive evaluation. She initially was seen at urgent care and was sent into the ER for ketone area. Her vital signs within normal limits. Laboratory analysis showed an elevated white blood cell count 13.3, CO2 of 20, urinalysis showed ketones with moderate blood and small leukocyte esterase. She underwent a transvaginal ultrasound showed a large cystic area that she shouldn't to the left ovary with septations and unremarkable right adnexa. CT abdomen and pelvis which showed mild 3 fluid within the pelvis as well as a dilated tubular structure in the right adnexa. She was started on IV antibiotics and IV fluids. She was admitted for further monitoring and care. She was seen by PRIME MINISTER who felt she likely had pelvic inflammatory disease and recommended antibiotics and repeat ultrasound in 6 weeks. Initial chlamydia, Trichomonas and gonorrhea came back negative. Patient seen and examined at bedside. Patient started having intractable nausea and vomiting after lunch. She reports increased lower abdominal pain. She reports that pain is worse with movement and better with rest and currently into a ball. Worse with tapping of her heel and fever for. No diarrhea. Feels as though she has a lot of gas in her abdomen. No chest pain or shortness of breath. Asked for nursing to take temperature was in the room and it was 101 Objective - Vital Signs Vital signs: Vital Signs Temp 101 F H 11/28/18 19:26 Pulse 122 H 11/28/18 19:26 Resp 18 11/28/18 16:53 BP 119/57 11/28/18 18:07 Pulse Ox 100 11/28/18 16:53 Intake & Output 11/28/18 11/28/18 11/29/18 06:59 18:59 06:59 Output Total 300 Balance -300 Output: Emesis 300 Other: Voiding Method Toilet Toilet # Voids 2 4 - Exam General: Ill appearing, mild distress secondary to pain, appears at stated age Derm: warm, dry Head: atraumatic, normocephalic, symmetric Eyes: EOMI, no lid lag, anicteric sclera Mouth: no lip lesion, mucus membranes moist Cardiovascular: S1S2 reg, no murmur, positive posterior tibial pulse bilateral, Lungs: CTA bilateral, no rhonchi, no rales , no accessory muscle use Abdominal: soft, + tender to palpation RLQ and LLQ, + guarding, no rebound, + tenderness to heel tap and pelvic shift, no appreciable organomegaly Ext: no gross muscle atrophy, no edema, no contractures Neuro: CN II-XI grossly intact, no focal neuro deficits Psych: Alert, oriented, appropriate affect - Labs CBC & Chem 7: 11/28/18 05:01 11/28/18 05:01 Labs: Abnormal Lab Results - Last 24 Hours (Table) 11/28/18 11/28/18 Range/Units 05:01 05:01 RBC 3.51 L (3.80-5.40) m/uL Hgb 10.3 L (11.4-16.0) gm/dL Hct 30.4 L (34.0-46.0) % Lymphocytes # 0.6 L (1.0-4.8) k/uL Chloride 109 H (98-107) mmol/L Carbon Dioxide 20 L (22-30) mmol/L Glucose 141 H (74-99) mg/dL Calcium 8.2 L (8.4-10.2) mg/dL Microbiology - Last 24 Hours (Table) 11/26/18 21:00 Urine Culture - Final Urine,Voided 11/26/18 20:46 Blood Culture - Preliminary Blood No Growth after 24 hours Assessment and Plan Assessment: Probable pelvic inflammatory disease with sepsis -Patient had persistent worsening fevers throughout the afternoon on 11/28. She was given an additional 1 L of IV fluids, Motrin, and increase Tylenol dosing. She continued to be febrile. Blood cultures were obtained. Antibiotics were broadened to Zosyn to cover for possible abdominal pathology. Doxy maintained as still possibility of mycoplasma. Surgical consult was requested and they felt likely secondary to PID but repeat computed tomography scan was ordered. Due to continued fevers and pain despite intervention CT was transitioned to stat. -Continue IV fluids -Blood culture negative for 24 hours, urine with 10-50,000 and scan her ur ogenital linh -Chlamydia and Trichomonas negative, gonorrhea negative -Pain control, antibiotics Obesity with BMI 33.8 -Structured outpatient weight loss Ketonuria -The likely secondary to poor oral intake DVT prophylaxis: early ambulation Discussed with: patient, nursing Anticipated discharge:2-[address]: home A total of 25 minutes was spent on the care of this complex patient more than 50% of the time was spent in counseling and care coordination.
--- NOTE | 2018-11-28 21:55 | CT ---
EXAMINATION TYPE: CT abdomen pelvis w con DATE OF EXAM: 11/28/2018 COMPARISON: 11/26/2018 HISTORY: abdominal pain, fever CT DLP: 1329.8 mGycm Automated exposure control for dose reduction was used. TECHNIQUE: Helical acquisition of images was performed from the lung bases through the pelvis. CONTRAST: Performed with Oral Contrast and with IV Contrast, patient injected with 100 mL of Isovue 300. FINDINGS: There is some mild infiltrate or atelectasis at the posterior lung bases. There is minimal pleural th ickening. Heart size is fairly normal. There is no pericardial effusion. Liver spleen pancreas gallbl adder appear normal. Bile ducts are not dilated. Stomach appears normal. There is no adrenal mass. There are bilateral 4 mm nonobstructing renal calculi. Ureters are not dila oral. Kidneys have normal size. There is no hydronephrosis. There is no retroperitoneal adenopathy. Th ere is mild free fluid in the abdomen. Bladder distends smoothly. Uterus is slightly retroverted. The re is no inguinal hernia. The oral contrast reaches the right colon. There is no evidence of a bowel obstruction. There is some mild fluid in the left paracolic gutter. There is a mixture of liquid stoo l in oral contrast and the right colon. Mucosal lesion of the right colon cannot be excluded. There i s tubular fluid structure in the right lower quadrant that is not definitely small bowel and could be a hydrosalpinx. There are possible clips from appendectomy. Appendix not seen with certainty. Lumbar vertebra have normal spacing and alignment. Bony pelvis appears intact. IMPRESSION: THERE IS INCREASING FREE FLUID IN THE ABDOMEN AND PELVIS COMPARED TO RECENT EXAM AND COULD RELATE TO PID OR PERITONITIS. POSSIBLE RIGHT-SIDED HYDROSALPINX UNCHANGED. APPENDIX IS NOT DEFINITELY SEEN. [place] ENDICITIS NOT EXCLUDED. NONOBSTRUCTING RENAL CALCULI. INCREASING PLEURAL THICKENING AND ATELECTASIS AND MILD INFILTRATE AT TH E LUNG BASES COMPARED TO RECENT EXAM.
[2018-11-29] MEDS: SODIUM CHLORIDE 0.9% 1,000 ML IV SCH ×3 (02:25→20:49)
[2018-11-29] MEDS: DOXYCYCLINE 100 MG in SODIUM CHLORIDE 0.9% 100 ML IVPB SCH ×2 (03:05→20:51)
[2018-11-29] MEDS: ONDANSETRON 4 MG/2 ML VIAL IVP PRN (03:41)
[2018-11-29] MEDS: PIPERACILLIN-TAZOBACTAM 3.375 GM in SODIUM CHLORIDE 0.9% 100 ML IVPB SCH ×3 (03:42→21:08)
[2018-11-29 05:29] LABS: African American GFR (CKD) >90 (>60 ml/min/1.73 sqM); Anion Gap 12 mmol/L; Blood Urea Nitrogen 6 mg/dL (7-17); Calcium 8.1 mg/dL (8.4-10.2); Carbon Dioxide 22 mmol/L (22-30); Chloride 103 mmol/L (98-107); Glucose 104 mg/dL (74-99); Potassium 3.5 mmol/L (3.5-5.1); Sodium 137 mmol/L (137-145)
[2018-11-29 06:16] LABS: Basophils # (A) 0.1 k/uL (0-0.2); Basophils % (A) 1 %; Eosinophils # (A) 0.1 k/uL (0-0.7); Eosinophils % (A) 1 %; HCT 32.4 % (34.0-46.0); HGB 10.8 gm/dL (11.4-16.0); Lymphocytes # (A) 0.8 k/uL (1.0-4.8); Lymphocytes % (A) 8 %; MCH 28.9 pg (25.0-35.0); MCHC 33.5 g/dL (31.0-37.0); MCV 86.4 fL (80.0-100.0); Mean Platelet Volume 7.5; Monocytes # (A) 0.4 k/uL (0-1.0); Monocytes % (A) 4 %; Neutrophils # (A) 9.1 k/uL (1.3-7.7); Neutrophils % (A) 85 %; Platelet Count 191 k/uL (150-450); RBC 3.75 m/uL (3.80-5.40); RDW 14.1 % (11.5-15.5); WBC 10.6 k/uL (3.8-10.6)
--- NOTE | 2018-11-29 06:47 | P.PN ---
Progress Note - Text Progress Note Date: 11/29/18 Hospital day #3. Patient began developing worsening abdominal pain yesterday. She continues to have a fever, T-max last evening was 100.8. Patient was seen by general surgery, Dr. Mast and he ordered a repeat CAT scan which showed increased peritoneal fluid and some findings on the right side was a questionable mucosal lesion. Patient's CBC shows white count to continue to be normal. She is having increased nausea and vomiting. Patient's parents were with her this morning and I had a long discussion with them about clinically what is going on with her. Our working diagnosis at admission was pelvic inflammatory disease although she has been monogamous for 3 years and cultures were negative. Typically I would expect her to respond to IV antibiotics if this was pelvic inflammatory disease. I did discuss the concern that this could be something bowel related especially since her pain initially started in the upper epigastric area last week. I recommended that get an infectious disease consultation and I agree with Dr. Mast's assessment that consideration of a diagnostic laparoscopy if patient does not improve. I will probably defer that to Dr. Mast since this may not be PID. Patient understands if this is a tubo- ovarian abscess that's not responding to antibiotics then it could be drained at the time of surgery, although truly the best treatment for PID would be continued IV antibiotics. Patient does remain tachycardic and her abdomen is tender today. I will discuss with Dr. Mast this morning. Patient did say and her parents indicated that her appendix was a difficult surgery but this was 6 years ago.
[2018-11-29] MEDS: IBUPROFEN 800 MG TAB PO PRN (07:04)
[2018-11-29] MEDS: LORATADINE 10 MG TAB PO SCH (07:50)
--- NOTE | 2018-11-29 09:10 | P.PN ---
Subjective Progress Note Date: 11/29/18 Principal diagnosis: Abdominal pain Patient is a 23 -year-old female with no known past medical history who presented to the ER with complaints of right lower quadrant pain. In the ER she underwent an extensive evaluation. She initially was seen at urgent care and was sent into the ER for ketone area. Her vital signs within normal limits. Laboratory analysis showed an elevated white blood cell count 13.3, CO2 of 20, urinalysis showed ketones with moderate blood and small leukocyte esterase. She underwent a transvaginal ultrasound showed a large cystic area that she shouldn't to the left ovary with septations and unremarkable right adnexa. CT abdomen and pelvis which showed mild 3 fluid within the pelvis as well as a dilated tubular structure in the right adnexa. She was started on IV antibiotics and IV fluids. She was admitted for further monitoring and care. She was seen by SITE SPECIALIST who felt she likely had pelvic inflammatory disease and recommended antibiotics and repeat ultrasound in 6 weeks. Initial chlamydia, Trichomonas and gonorrhea came back negative. 11/29/2018: Patient continues to have abdominal pain, nauseated but no vomiting today. Fever trend is better. Objective - Vital Signs Vital signs: Vital Signs Temp 100.2 F H 11/29/18 08:05 Pulse 119 H 11/29/18 08:05 Resp 19 11/29/18 08:05 BP 114/74 11/29/18 08:05 Pulse Ox 95 11/29/18 08:05 Intake & Output 11/28/18 11/29/18 11/29/18 18:59 06:59 18:59 Output Total 300 Balance -300 Output: Emesis 300 Other: Voiding Method Toilet Toilet # Voids 4 1 # Bowel Movements 2 - Exam General: Awake alert oriented times, not in distress. Derm: warm, dry Head: atraumatic, normocephalic, symmetric Eyes: EOMI, no lid lag Mouth: no lip lesion Cardiovascular: S1S2 reg, no murmur Lungs: CTA bilateral, no rhonchi, no rales , no accessory muscle use Abdominal: soft, + tender to palpation RLQ and LLQ, + guarding, no rebound, no appreciable organomegaly Ext: no gross muscle atrophy, no edema, no contractures Neuro: CN II-XI grossly intact, no focal neuro deficits Psych: Alert, oriented, appropriate affect - Labs CBC & Chem 7: 11/29/18 05:00 11/29/18 05:00 Labs: Abnormal Lab Results - Last 24 Hours (Table) 11/29/18 11/29/18 Range/Units 05:00 05:00 RBC 3.75 L (3.80-5.40) m/uL Hgb 10.8 L (11.4-16.0) gm/dL Hct 32.4 L (34.0-46.0) % Neutrophils # 9.1 H (1.3-7.7) k/uL Lymphocytes # 0.8 L (1.0-4.8) k/uL BUN 6 L (7-17) mg/dL Glucose 104 H (74-99) mg/dL Calcium 8.1 L (8.4-10.2) mg/dL Microbiology - Last 24 Hours (Table) 11/26/18 20:46 Blood Culture - Preliminary Blood No Growth after 48 hours 11/26/18 21:00 Urine Culture - Final Urine,Voided Assessment and Plan Plan: A/P Probable pelvic inflammatory disease with sepsis -Patient had persistent worsening fevers throughout the afternoon on 11/28. She was given an additional 1 L of IV fluids, Motrin, and increase Tylenol dosing. She continued to be febrile. Blood cultures were obtained. Antibiotics were broadened to Zosyn to cover for possible abdominal pathology. Doxy maintained as still possibility of mycoplasma. Surgical consulted , plan for surgical intervention today. Appreciate ID input. -Continue IV fluids, normal saline decreased from 150 mL per hour to 100 mL per hour. -Blood culture negative , urine with 10-50,000 and scan her urogenital linh -Chlamydia and Trichomonas negative, gonorrhea negative -Pain control changed to IV Toradol. Obesity with BMI 33.8 -Structured outpatient weight loss Ketonuria -The likely secondary to poor oral intake, monitor. DVT prophylaxis: early ambulation Discussed with: patient and her mother, nursing, ID and surgery Anticipated discharge:2-3 days, changed to inpatient from observation. Anticipated discharge place: home once clinically better.
[2018-11-29] MEDS: KETOROLAC 30 MG/ML 1 ML VIAL IVP SCH ×3 (09:14→21:30)
--- NOTE | 2018-11-29 09:37 | P.PN ---
Progress Note - Text Progress Note Date: 11/29/[address] Mast we have decided to proceed with diagnostic laparoscopy and possible laparotomy. I discussed with Nasra and her Dad about my part of the surgery if necessary could require removal of her fallopian tube. She understands we will do our best to preserve her fertility. She understands the risks of surgery: infection, bleeding, possible injury to bowel/bladder/vessels and/or other organs. All of their questions were answered and a written consent obtained.
--- NOTE | 2018-11-29 09:39 | P.PN ---
Subjective Progress Note Date: 11/29/18 Principal diagnosis: Abdominal pain Patient states she is still having abdominal discomfort. No change from yesterday afternoon when I evaluated her. CAT scan was repeated with oral contrast. Patient had diarrhea following that which is to be expected. She had low-grade fevers all night long with mild tachycardia associated with her fevers. Location of the pain remains primarily lower abdomen with radiation upwards. Right seems to be worse than left. Blood cell count remains normal. Repeat CAT scan reviewed. Hydrosalpinx still suspected on the right side greater than the left. Some inflammatory changes in that area noted. Describes increased free fluid by radiology. No free air. Objective - Vital Signs Vital signs: Vital Signs Temp 100.2 F H 11/29/18 08:51 Pulse 119 H 11/29/18 08:51 Resp 24 11/29/18 08:51 BP 114/74 11/29/18 08:51 Pulse Ox 95 11/29/18 08:51 Intake & Output 11/28/18 11/29/18 11/29/18 18:59 06:59 18:59 Output Total 300 Balance -300 Output: Emesis 300 Other: Voiding Method Toilet Toilet # Voids 4 1 # Bowel Movements 2 - Exam Abdomen: Soft, mild distention, diffuse tenderness increased in the lower abdomen. No rebound or guarding - Labs CBC & Chem 7: 11/29/18 05:00 11/29/18 05:00 Labs: Abnormal Lab Results - Last 24 Hours (Table) 11/29/18 11/29/18 Range/Units 05:00 05:00 RBC 3.75 L (3.80-5.40) m/uL Hgb 10.8 L (11.4-16.0) gm/dL Hct 32.4 L (34.0-46.0) % Neutrophils # 9.1 H (1.3-7.7) k/uL Lymphocytes # 0.8 L (1.0-4.8) k/uL BUN 6 L (7-17) mg/dL Glucose 104 H (74-99) mg/dL Calcium 8.1 L (8.4-10.2) mg/dL Microbiology - Last 24 Hours (Table) 11/26/18 20:46 Blood Culture - Preliminary Blood No Growth after 48 hours 11/26/18 21:00 Urine Culture - Final Urine,Voided Assessment and Plan (1) PID (acute pelvic inflammatory disease) Narrative/Plan: Still suspect right-sided tubo-ovarian abscess as the etiology for the patient's symptoms. Case was discussed with gynecology this morning. Case also reviewed in detail with the patient's mother and herself. At this time given the patient's persistent pain and fevers despite conservative antibiotic therapy will proceed with diagnostic laparoscopy. Intraoperative plan will depend on th e operative findings. Possible need for laparotomy reviewed. Drainage of tubo- ovarian abscess to be discussed further with gynecology if this does appear to be the etiology of her symptoms. Intentionally for bowel resection reviewed with the patient if an abnormality with the bowel was identified. Continue antibiotics for now. Keep nothing by mouth. Risks of bleeding, infection, abscess, need for bowel resection/ostomy, conversion to an open procedure, bladder and bowel injury, ureteral injury, possible need for salpingo- oophorectomy, possible future infertility issues reviewed. They understand and wish to proceed. Current Visit: Yes Status: Acute Code(s): N73.0 - ACUTE PARAMETRITIS AND PELVIC CELLULITIS SNOMED Code(s): 780946465
--- NOTE | 2018-11-29 10:25 | P.CONS ---
History of Present Illness - Reason for Consult Consult date: 11/29/18 Persistent fevers, sepsis - History of Present Illness This is a 23-year-old female patient presented to the hospital on November 27 with abdominal pain. She has been followed by Dr. Asencio and Dr. Mast with plan for diagnostic laparoscopy and possible intraoperative intervention for possible tubo-ovarian abscess. Patient has had resolution of leukocytosis but ongoing fevers with low-grade fevers overnight, continued abdominal pain, tenderness and bloating. HCG has been nondetected. Chlamydia and gonorrhea and Trichomonas negative. UA was positive for blood but no significant infection. Blood culture is no growth at 48 hours. Urine culture finalized with vascular genital linh. Patient has been on cefoxitin and doxycycline and currently on IV doxycycline and Zosyn. Patient denies any vagin al discharge. She is sexually active in monogamous relationship for approximately 3 years not currently using anything for contraception and does not use protection. Review of Systems Constitutional: Reports anorexia, Reports chills, Reports fatigue, Reports fever, Reports lethargy, Reports malaise, Reports poor appetite, Reports weakness Ears, nose, mouth and throat: Denies dysphagia, Denies nasal congestion, Denies nasal discharge, Denies vertigo Cardiovascular: Denies decreased exercise tolerance, Denies dyspnea on exertion, Denies leg edema, Denies lightheadedness, Denies syncope Respiratory: Denies cough, Denies cough with sputum, Denies dyspnea, Denies excessive sputum, Denies hemoptysis, Denies home oxygen, Denies wheezing Gastrointestinal: Reports abdominal pain, Reports diarrhea (Secondary to contrast for CAT scan), Reports loss of appetite, Reports nausea, Reports vomiting Genitourinary: Reports dysuria, Denies urgency, Denies vaginal discharge Integumentary: Denies pruritus, Denies rash Neurological: Denies numbness, Denies weakness Psychiatric: Denies anxiety, Denies depression Endocrine: Denies fatigue, Denies weight change Past Medical History Past Medical History: No Reported History History of Any Multi-Drug Resistant Organisms: None Reported Past Surgical History: Appendectomy Additional Past Surgical History / Comment(s): Breast reductive surgery Past Psychological History: No Psychological Hx Reported Smoking Status: Never smoker Past Alcohol Use History: Occasional Past Drug Use History: None Reported - Past Family History Mother Family Medical History: Diabetes Mellitus Additional Family Medical History / Comment(s): Gestational DM Medications and Allergies Home Medications Medication Instructions Recorded Confirmed Type No Known Home Medications 11/27/18 11/27/18 History Allergies Allergy/AdvReac Type Severity Reaction Status Date / Time No Known Allergies Allergy Verified 11/27/18 07:50 Physical Exam Vitals: Vital Signs Temp Pulse Resp BP Pulse Ox 11/29/18 08:05 100.2 F H 119 H 19 114/74 95 11/29/18 04:27 100.0 F H 114 H 18 115/76 96 11/28/18 23:56 110 H 18 11/28/18 23:00 100.2 F H 110 H 18 109/70 98 11/28/18 21:10 120 H 24 11/28/18 19:55 100.8 F H 120 H 24 125/70 96 11/28/18 19:26 101 F H 122 H 11/28/18 18:39 103.5 F H 11/28/18 18:18 102.7 F H 132 H 11/28/18 18:07 104.1 F H 148 H 119/57 11/28/18 17:06 134 H 115/53 11/28/18 16:53 134 H 18 116/51 100 11/28/18 16:24 103.1 F H 134 H 16 116/51 100 11/28/18 16:00 134 H 18 11/28/18 14:45 103 F H 11/28/18 14:20 100.1 F H 11/28/18 11:59 98.4 F 92 16 119/80 Intake and Output 11/28/18 11/29/18 11/29/18 22:59 06:59 14:59 Other: Voiding Method Toilet Toilet # Voids 4 1 # Bowel Movements 2 2 Gen: This is an obese 23-year-old female. Patient is resting in bed, appears to be somewhat uncomfortable due to abdominal pain. Mother is at bedside. HEENT: Head is atraumatic, normocephalic. Pupils equal, round. Sclerae is anicteric. Conjunctiva pink. Extremities of the mouth are moist. No thrush noted. NECK: Supple. No JVD. No lymphadenopathy. No thyromegaly. LUNGS: Clear to auscultation. No wheezes or rhonchi. No intercostal retractions. Poor inspiratory effort secondary to pain. HEART: Regular rate and rhythm. No murmur. ABDOMEN: Soft. Bowel sounds are present. Mild abdominal distention. Diffuse tenderness. EXTREMITIES: No pedal edema. No calf tenderness. Dorsalis pedis +2 bilaterally. NEUROLOGICAL: Patient is awake, alert and oriented x3. Cranial nerves 2 through 12 are grossly intact. Results Results: Laboratory Results WBC 10.6 k/uL (3.8-10.6) 11/29/18 05:00 RBC 3.75 m/uL (3.80-5.40) L 11/29/18 05:00 Hgb 10.8 gm/dL (11.4-16.0) L 11/29/18 05:00 Hct 32.4 % (34.0-46.0) L 11/29/18 05:00 MCV 86.4 fL (80.0-100.0) 11/29/18 05:00 MCH 28.9 pg (25.0-35.0) 11/29/18 05:00 MCHC 33.5 g/dL (31.0-37.0) 11/29/18 05:00 RDW 14.1 % (11.5-15.5) 11/29/18 05:00 Plt Count 191 k/uL (150-450) 11/29/18 05:00 Neutrophils % 85 % 11/29/18 05:00 Lymphocytes % 8 % 11/29/18 05:00 Monocytes % 4 % 11/29/18 05:00 Eosinophils % 1 % 11/29/18 05:00 Basophils % 1 % 11/29/18 05:00 Neutrophils # 9.1 k/uL (1.3-7.7) H 11/29/18 05:00 Lymphocytes # 0.8 k/uL (1.0-4.8) L 11/29/18 05:00 Monocytes # 0.4 k/uL (0-1.0) 11/29/18 05:00 Eosinophils # 0.1 k/uL (0-0.7) 11/29/18 05:00 Basophils # 0.1 k/uL (0-0.2) 11/29/18 05:00 PT 10.4 sec (9.0-12.0) 11/26/18 20:46 INR 1.0 (<1.2) 11/26/18 20:46 APTT 26.1 sec (22.0-30.0) 11/26/18 20:46 Sodium 137 mmol/L (137-145) 11/29/18 05:00 Potassium 3.5 mmol/L (3.5-5.1) 11/29/18 05:00 Chloride 103 mmol/L (98-107) 11/29/18 05:00 Carbon Dioxide 22 mmol/L (22-30) 11/29/18 05:00 Anion Gap 12 mmol/L 11/29/18 05:00 BUN 6 mg/dL (7-17) L 11/29/18 05:00 Creatinine 0.55 mg/dL (0.52-1.04) 11/29/18 05:00 Est GFR (CKD-EPI)AfAm >90 (>60 ml/min/1.73 sqM) 11/29/18 05:00 Est GFR (CKD-EPI)NonAf >90 (>60 ml/min/1.73 sqM) 11/29/18 05:00 Glucose 104 mg/dL (74-99) H 11/29/18 05:00 Plasma Lactic Acid Willian 1.6 mmol/L (0.7-2.0) 11/28/18 17:02 Calcium 8.1 mg/dL (8.4-10.2) L 11/29/18 05:00 Total Bilirubin 0.6 mg/dL (0.2-1.3) 11/26/18 20:46 AST 23 U/L (14-36) 11/26/18 20:46 ALT 20 U/L (9-52) 11/26/18 20:46 Alkaline Phosphatase 81 U/L (38-126) 11/26/18 20:46 Total Protein 7.5 g/dL (6.3-8.2) 11/26/18 20:46 Albumin 4.4 g/dL (3.5-5.0) 11/26/18 20:46 HCG, Qual Not Detected 11/28/18 17:02 HCG, Quant <2.4 mIU/mL 11/28/18 17:02 Urine Color Yellow 11/26/18 21:00 Urine Appearance Clear (Clear) 11/26/18 21:00 Urine pH 6.0 (5.0-8.0) 11/26/18 21:00 Ur Specific [place] 1.023 (1.001-1.035) 11/26/18 21:00 Urine Protein Trace (Negative) H 11/26/18 21:00 Urine Glucose (UA) Negative (Negative) 11/26/18 21:00 Urine Ketones 4+ (Negative) H 11/26/18 21:00 Urine Blood Moderate (Negative) H 11/26/18 21:00 Urine Nitrite Negative (Negative) 11/26/18 21:00 Urine Bilirubin Negative (Negative) 11/26/18 21:00 Urine Urobilinogen <2.0 mg/dL (<2.0) 11/26/18 21:00 Ur Leukocyte Esterase Small (Negative) H 11/26/18 21:00 Urine RBC 10 /hpf (0-5) H 11/26/18 21:00 Urine WBC 1 /hpf (0-5) 11/26/18 21:00 Ur Squamous Epith Cells <1 /hpf (0-4) 11/26/18 21:00 Urine Mucus Rare /hpf (None) H 11/26/18 21:00 Urine HCG, Qual Not Detected (Not Detectd) 11/26/18 21:00 Chlamydia Source Vagina 11/26/18 22:06 Chlamydia DNA (PCR) Negative (Neg,Equiv) 11/26/18 22:06 N. gonorrhoeae Source Vagina 11/26/18 22:06 N.gonorrhoeae DNA Probe Negative (Neg,Equiv) 11/26/18 22:06 Trichomonas Ag (Rapid) Negative (Negative) 11/26/18 22:06 CBC & Chem 7: 11/29/18 05:00 11/29/18 05:00 Labs: Abnormal Lab Results - Last 24 Hours (Table) 11/29/18 11/29/18 Range/Units 05:00 05:00 RBC 3.75 L (3.80-5.40) m/uL Hgb 10.8 L (11.4-16.0) gm/dL Hct 32.4 L (34.0-46.0) % Neutrophils # 9.1 H (1.3-7.7) k/uL Lymphocytes # 0.8 L (1.0-4.8) k/uL BUN 6 L (7-17) mg/dL Glucose 104 H (74-99) mg/dL Calcium 8.1 L (8.4-10.2) mg/dL Microbiology - Last 24 Hours (Table) 11/26/18 20:46 Blood Culture - Preliminary Blood No Growth after 48 hours 11/26/18 21:00 Urine Culture - Final Urine,Voided Assessment and Plan Plan: This is a 23-year-old female who presented to the hospital with abdominal pain and sepsis with concern for possible tubo-ovarian abscess. Patient is scheduled for diagnostic laparoscopy this afternoon with Dr. Mast and Dr. Asencio. Patient is currently on IV doxycycline and Zosyn. Antibiotics will be streamline. Continue supportive care. Further recommendations as patient progresses. The above dictated assessment and findings were discussed with Dr. Serna. The impression and plan of care have been directed as dictated. Rita Edmonds nurse practitioner acting as scribe for Dr. Srena.
[2018-11-29] MEDS ORDERED: LIDOCAINE 1% 20 ML VIAL (10MG/ML) FOR IV START INTRADERMA ONE (14:45)
[2018-11-29] MEDS ORDERED: IV FLUID CONTINUATION 1,000 ML IV ONE (14:54)
[2018-11-29] MEDS ORDERED: NEOSTIGMINE 1 MG/ML 10 ML VIAL ONE (15:44)
[2018-11-29] MEDS ORDERED: GLYCOPYRROLATE 0.2 MG/ML 2 ML VIAL ONE (15:44)
[2018-11-29] MEDS ORDERED: PROPOFOL 10 MG/ML 20 ML VIAL IV ONE (15:44)
[2018-11-29] MEDS ORDERED: KETOROLAC 30 MG/ML 1 ML VIAL ONE (15:44)
[2018-11-29] MEDS ORDERED: fentaNYL (PF) 50 MCG/ML 2 ML AMP ONE (15:44)
[2018-11-29] MEDS ORDERED: MIDAZOLAM 2 MG/2 ML VIAL ONE (15:44)
[2018-11-29] MEDS ORDERED: SUCCINYLCHOLINE CHLORIDE 100 MG/5 ML SYR IV ONE (15:44)
[2018-11-29] MEDS ORDERED: ROCURONIUM BROMIDE 10 MG/ML 10 ML VIAL IV ONE (15:44)
[2018-11-29] MEDS ORDERED: LIDOCAINE 1% INJ 10MG/ML (20 ML MDV) ONE (15:44)
[2018-11-29] MEDS ORDERED: BUPIVACAINE (PF) 0.25% 30 ML VIAL SQ ONE ×2 (16:21)
[2018-11-29] MEDS ORDERED: LACTATED RINGERS 1,000 ML IV ONE (17:30)
[2018-11-29] MEDS ORDERED: HYDROcodone/APAP 5-325MG 1 EACH TAB PO PRN (17:48)
[2018-11-29] MEDS ORDERED: HYDROmorphone 1 MG/ML 1 ML SYRINGE IVP PRN (17:48)
--- NOTE | 2018-11-29 17:52 | P.OP ---
Date of Procedure: 11/29/18 Procedure(s) Performed: PREOPERATIVE DIAGNOSIS: Peritonitis, suspected tubo-ovarian abscess POSTOPERATIVE DIAGNOSIS: Same PROCEDURE: Laparoscopic lysis of adhesions SURGEON: Kezia EBL: Minimal ANESTHESIA: General COMPLICATIONS: None OPERATIVE PROCEDURE: Patient placed in the operating table in the supine po sition. The patient's abdomen was prepped and draped in usual sterile fashion after general anesthesia was achieved. A vertical infraumbilical incision was made using the scalpel. The fascia was retracted using Randall forceps. The Veress needle was advanced and the peritoneal cavity. The saline drop test was normal. Insufflation took place up to 15 mmHg. A 5 mm trocar was advanced into the perineal cavity. 2 additional 5 mm trochars were placed in the left midabdomen. Inspection of the peritoneal cavity revealed significant purulence. Purulence seen to be localized primarily to the pelvis. There were some adhesions between the omentum and sigmoid colon and the region of the uterus and ovaries. I was able to visualize what appeared to represent the right ovarian tube which was swollen and consistent with hydrosalpinx. Further dissection was not able to clearly identify the left tube and ovary. Uterus likewise was not well visualized. Dr. Simon was present for the laparoscopic evaluation. It was decided at that point to convert to a Pfannenstiel laparotomy incision for definitive management of this suspected tubo-ovarian abscess. Of note the patient's previous appendectomy site had a small area of scarring but no residual appendix or inflammatory change noted. The trochars were removed. The incision at the umbilicus and the medial left mid abdominal incision were closed using 4-0 Monocryl sutures. The lateral 5 mm trocar incision was left open for the use of a drain to be placed at the time of the laparotomy. The remainder of the operative report will be dictated separately by gynecology. DISPOSITION: Stable to recovery room
[2018-11-29] MEDS ORDERED: HYDROmorphone PCA 10 MG/50 ML BAG IV PRN (17:53)
--- NOTE | 2018-11-29 18:09 | P.OP ---
Date of Procedure: 11/29/18 Preoperative Diagnosis: Tubo-ovarian abscess refractory to conservative antibiotic therapy Postoperative Diagnosis: Same, peritonitis Procedure(s) Performed: Diagnostic laparoscopy, exploratory laparotomy with right salpingectomy and lysis of adhesions Anesthesia: BERTHA Surgeon: Ubaldo Simon Safety Equipment Testing Specialist #1: Philip Mast Estimated Blood Loss (ml): 50 Pathology: other (Right fallopian tube; peritoneal fluid for culture) Condition: stable Disposition: floor Indications for Procedure: Please see dictated H&P for intimate details of this patient's admission. In brief summary this is a pleasant 23-year-old 0 para 0 female who is admitted approximately 2 days ago with complaints of abdominal pain and fevers. Evaluation at that time showed an elevated white count of 13, CAT scan findings consistent with possible tubo-ovarian abscess and some peritoneal fluid. Patient was treated conservatively with IV antibiotics and serial white blood cell counts initially she markedly improved. Patient however approximately 24- 36 hours ago began becoming much more uncomfortable and although her white count remained normal she was tachycardic and having more abdominal discomfort. Dr. Mast and I evaluated this patient and although it did appear to be pelvic inflammatory disease I was some concern that there could be other etiology from the bowel. For this reasoning we discussed with the patient and her family elected proceed with exploratory surgery for evaluation. Patient understands that surgery has risks and risks of infection, bleeding, possible injury bowel, bladder, vessels, and/or other organs. She was understands although I will do my best to save her fallopian tubes that it may be necessary to remove one or both tubes. All the patient's questions were answered and a written consent is obtained. Operative Findings: This patient had fluid throughout her abdomen. The pelvis was severely infected and the tissue planes an anatomic structures were inflamed and difficult to discern. I was able to identify the bilateral ovaries. The cul-de-sac was completely obliterated. The left fallopian tube did appear dilated but not grossly infected. The right fallopian tube was extremely infected and contained purulent material. The bowel was adherent as well but this appeared to be secondary to the pelvic infection. The uterus could be an palpated but not identified and appeared to be of normal size. Description of Procedure: Please see the initial part of the surgery and Dr. cerna dictation. A laparoscope was placed without incident. 2 other trocar sites were placed for visualization and manipulation of the bowel and pelvis. After careful dissection it was determined that there was so much adherent and adhesions material that it would not be safe to proceed with continued laparoscopic treatment and the decision was made to proceed with a laparotomy. Patient has a already been prepped and draped. Jeff catheter was placed to straight drain. Scalpels and taken Pfannenstiel skin incision is then made. Second scalpel is taken down to the fascia and the fascia scored with the scalpel. Fascial incision extended bilaterally using the Rosado scissors. Fascia is then dissected off the rectus muscles sharply. Rectus muscles are and the peritoneum identified and entered sharply. Peritoneal incision extended superior and inferior without difficulty. This point we removed with suction large amount of pustular material. Solitario retractor is placed carefully. Bladder blade is placed. Bowels packed up as best as possible to visualize the pelvis. It is obvious the right fallopian tube is indurated and actually draining some pustular material. Careful blunt and sharp dissection is done at this time to try to identify the pelvic structures. I am able to visualize the left and right ovaries appeared adherent but appear otherwise normal. The right fallopian tube is almost unrecognizable due to its induration and inflammation. The left fallopian tube is visualized appears to be dilated as well but it does not appear to be a primary infective site. Decision at this time is to remove the right fallopian tube to remove the abscessed area. 2 Yun clamps are placed across the pedicle. Metzenbaum scissors were used to excise the fallopian tube. Using 0 Vicryl suture interrupted Yun stitch the pedicle is secured and hemostatic. At this time we do more inspection of the bowel and sharp and blunt dissection was done. We then irrigated with a large amount of saline until we believe we removed most of the earlobe material. Excellent hemostasis is noted. Due to the large amount of infection was also felt to be best place a drain so a small drain is placed by Dr. franco through the 5 mm incision and the left side. Packs were all removed and counts are correct 3. [place] retractors removed. Peritoneum was then closed using 0 Vicryl running fashion. Rectus muscles reapproximated in 0 Vicryl interrupted fashion. The fascial incisions closed using 0 PDS. Fascial incision is intact and hemostatic. Subcutaneous tissues and closed using a 3-0 Vicryl. Skin is and closed using ernestina. All counts are correct 3. There are no complications. Patient is taken to the recovery room in satisfactory condition.
[2018-11-29] MEDS ORDERED: HYDROmorphone 1 MG/ML 1 ML SYRINGE IVP ONE ×2 (19:05→19:11)
--- NOTE | 2018-11-29 21:55 | P.CON ---
Consult Note - . Consult date: 11/29/18 Assessment/Plan:: This is a 23-year-old female patient presented to the hospital on November 27 with abdominal pain. She has been followed by Dr. Asencio and Dr. Mast with plan for diagnostic laparoscopy and possible intraoperative interven tion for possible tubo-ovarian abscess. Patient has had resolution of leukocytosis but ongoing fevers with low-grade fevers overnight, continued abdominal pain, tenderness and bloating. HCG has been nondetected. Chlamydia and gonorrhea and Trichomonas negative. UA was positive for blood but no significant infection. Blood culture is no growth at 48 hours. Urine culture finalized with vascular genital linh. Patient has been on cefoxitin and doxycycline and currently on IV doxycycline and Zosyn. Patient denies any vaginal discharge. She is sexually active in monogamous relationship for approximately 3 years not currently using anything for contraception and does not use protection. Please see the consult note is dictated by nurse practitioner Mrs. Rita Edmonds. This pleasant 23-year-old woman was ill for approximately a week before she presented for care. It is tender and has evidence of the extensive intra- abdominal infection related to the tubo-ovarian abscess. Been taken in the operating room and the right salpingostomy was performed as well as abdominal lavage and lysis of adhesions. The patient has not had this discomfort in the past. Pathology is pending. Antibiotic therapy with ampicillin sulbactam and doxycycline are recommended. Also per guidelines HIV testing and RPR will be requested. When she has improved should be able to transition to oral antibiot ic therapy at discharge. I agree with evaluation, assessment and plan as dictated by nurse practitioner Mrs. Rita Edmonds.
[2018-11-29] MEDS: AMPICILLIN-SULBACTAM 3 GM in SODIUM CHLORIDE 0.9% 100 ML IVPB SCH (23:42)
[2018-11-30] MEDS: ACETAMINOPHEN TAB 325 MG TAB PO PRN (01:11)
[2018-11-30] MEDS: KETOROLAC 30 MG/ML 1 ML VIAL IVP SCH ×4 (03:07→20:48)
[2018-11-30] MEDS: DOXYCYCLINE 100 MG in SODIUM CHLORIDE 0.9% 100 ML IVPB SCH ×2 (03:19→16:02)
[2018-11-30] MEDS ORDERED: SODIUM CHLORIDE 0.9% 1,000 ML IV ONE (03:35)
[2018-11-30] MEDS ORDERED: KETOROLAC 30 MG/ML 1 ML VIAL IVP STA (03:36)
[2018-11-30 04:34] LABS: Basophils % (A) 0 %; Eosinophils % (A) 0 %; HCT 26.8 % (34.0-46.0); Lymphocytes # (A) 0.8 k/uL (1.0-4.8); Lymphocytes % (A) 10 %; MCH 28.9 pg (25.0-35.0); MCHC 33.1 g/dL (31.0-37.0); MCV 87.2 fL (80.0-100.0); Monocytes # (A) 0.2 k/uL (0-1.0); Monocytes % (A) 2 %; Neutrophils # (A) 7.4 k/uL (1.3-7.7); Neutrophils % (A) 86 %; Platelet Count 196 k/uL (150-450); RBC 3.08 m/uL (3.80-5.40); RDW 13.4 % (11.5-15.5); WBC 8.6 k/uL (3.8-10.6)
[2018-11-30] MEDS: SODIUM CHLORIDE 0.9% 1,000 ML IV SCH ×2 (04:35→15:51)
[2018-11-30 04:36] LABS: HGB 8.9 gm/dL (11.4-16.0)
[2018-11-30 04:46] LABS: ALT 26 U/L (9-52); AST 15 U/L (14-36); African American GFR (CKD) >90 (>60 ml/min/1.73 sqM); Albumin 2.4 g/dL (3.5-5.0); Alkaline Phosphatase 51 U/L (38-126); Anion Gap 11 mmol/L; Blood Urea Nitrogen 8 mg/dL (7-17); Calcium 7.5 mg/dL (8.4-10.2); Carbon Dioxide 18 mmol/L (22-30); Chloride 108 mmol/L (98-107); Glucose 86 mg/dL (74-99); Sodium 137 mmol/L (137-145); Total Bilirubin 0.4 mg/dL (0.2-1.3); Total Protein 4.6 g/dL (6.3-8.2)
[2018-11-30] MEDS: ONDANSETRON 4 MG/2 ML VIAL IVP PRN ×3 (05:01→20:33)
[2018-11-30] MEDS: AMPICILLIN-SULBACTAM 3 GM in SODIUM CHLORIDE 0.9% 100 ML IVPB SCH ×3 (05:45→17:53)
--- NOTE | 2018-11-30 06:21 | P.PN ---
Progress Note - Text Progress Note Date: 11/30/18 Hospital day #4, postoperative day #1. Patient's continued to have spiking temperatures overnight however this morning she is 99 9. She is also having some tachycardia secondary to the fevers however her pulse taken down to 109 this morning. Patient appears to be in good spirits without excessive pain. Abdomen soft and appropriately tender. Urine output excellent. Her YUE is putting out quite a bit of fluid which is expected. CBC this morning shows her hemoglobin to be 8.9 which I feel is appropriate from her surgery and white count is normal. My impression this is a postoperative day #1 status post right salpingectomy secondary to peritonitis and tubo-ovarian abscess. I expect her to spike temps for another day or 2 but hopefully she'll continue to clinically improve. Infectious Disease is adjusting her antibiotics appropriately and we'll also follow with general surgery. I think she needs to continue the Jeff catheter at this time to keep a close eye on her urine output. Advance diet per general surgery.
[2018-11-30] MEDS: POTASSIUM CHLORIDE ER 20 MEQ TAB.ER PO SCH ×3 (09:41→13:49)
[2018-11-30] MEDS: LORATADINE 10 MG TAB PO SCH (09:42)
[2018-11-30 12:23] LABS: HIV 1 AB Non-Reactive (Non-Reactive); HIV AB P24 Non-Reactive (Non-Reactive); HIV P24 AG Non-Reactive (Non-Reactive)
[2018-11-30] MEDS: PANTOPRAZOLE 40 MG/10 ML VIAL IVP SCH (12:34)
--- NOTE | 2018-11-30 12:36 | P.PN ---
<Alice Andres A - Last Filed: 11/30/18 12:32> Subjective Progress Note Date: 11/30/18 CHIEF COMPLAINT: abdominal pain HISTORY OF PRESENT ILLNESS: patient is status post diagnostic laparoscopy, exploratory laparotomy with right salpingectomy and lysis of adhesions with Dr. Mast and Dr. Simon. POD #1. Patient examined at the bedside this morning. Father present. She is laying in bed. She states her pain is about 4/10. Using Dilaudid PRETZEL TWISTING MACHINE OPERATOR. Denies nausea or vomiting. She reports decreased appetite. Some drink some fluids this morning. Using IS 10 times an hour. Has not been OOB at the time of my examination. Tmax over last 24 hours is 103.2. 99.2 this AM. She remains tachycardic with a HR in the 120s. Blood pressure stable. On 2L with oxygen saturations greater than 92%. YUE with serous drainage and small amount of bloody sediment. Hemoglobin 8.9. WBC 8.6 PHYSICAL EXAM: VITAL SIGNS: Reviewed. GENERAL: Well-developed in no acute distress. HEENT: No sclera icterus. Extraocular movements grossly intact. Moist buccal mucosa. Head is atraumatic, normocephalic. ABDOMEN: Soft. Nondistended. Appropriate surgical tenderness. Dressing to abdomen CDI. YUE drain to left abdomen. NEUROLOGIC: Alert and oriented. Cranial nerves II through XII grossly intact. ASSESSMENT: 1. Tubo-ovarian abscess and peritonitis, status post diagnostic laparoscopy, exploratory laparotomy with right salpingectomy and lysis of adhesions PLAN: 1. Diet as tolerated 2. Pain control. Continue Dilaudid PRETZEL TWISTING MACHINE OPERATOR 3. OB recommending to continue dougherty catheter. Will defer to their service for removal 4. Activity as tolerated 5. Monitor vital signs 6. Repeat CBC in AM Nurse practitioner note has been reviewed by physician. Signing provider agrees with the documented findings, assessment, and plan of care. Objective - Vital Signs Vital signs: Vital Signs Temp 99.2 F 11/30/18 07:28 Pulse 105 H 11/30/18 07:28 Resp 16 11/30/18 07:28 BP 123/66 11/30/18 07:28 Pulse Ox 99 11/30/18 07:28 Intake & Output 11/29/18 11/30/18 11/30/18 18:59 06:59 18:59 Intake Total 1100 Output Total 70 855 420 Balance 1030 -855 -420 Intake: IV 1100 Output: Drainage 205 45 Left Abdomen 205 45 Urine 20 650 375 Estimated Blood Loss 50 Other: Voiding Method Indwelling Catheter # Voids 4 0 # Bowel Movements 10 0 - Labs CBC & Chem 7: 11/30/18 04:18 11/30/18 04:18 Labs: Abnormal Lab Results - Last 24 Hours (Table) 11/30/18 11/30/18 11/30/18 Range/Units 04:18 04:18 04:18 RBC 3.08 L (3.80-5.40) m/uL Hgb 8.9 L D (11.4-16.0) gm/dL Hct 26.8 L (34.0-46.0) % Lymphocytes # 0.8 L (1.0-4.8) k/uL Potassium 3.0 L (3.5-5.1) mmol/L Chloride 108 H (98-107) mmol/L Carbon Dioxide 18 L (22-30) mmol/L Plasma Lactic Acid Willian <0.5 L (0.7-2.0) mmol/L Calcium 7.5 L (8.4-10.2) mg/dL Total Protein 4.6 L (6.3-8.2) g/dL Albumin 2.4 L (3.5-5.0) g/dL Microbiology - Last 24 Hours (Table) 11/29/18 17:00 Gram Stain - Preliminary Aspirate Body Fluid Culture - Preliminary 11/26/18 20:46 Blood Culture - Preliminary Blood No Growth after 72 hours 11/28/18 16:00 Blood Culture - Preliminary Blood No Growth after 24 hours <Philip Mast - Last Filed: 11/30/18 17:49> Subjective As above. Patient doing well today. Pain is improved. YUE draining serous. Fevers are trending downwards. Remains anorexic. We'll gradually advance diet. Increase activity. Continue antibiotics. Objective - Vital Signs Vital signs: Vital Signs Temp 99.0 F 11/30/18 14:40 Pulse 102 H 11/30/18 14:40 Resp 16 11/30/18 14:40 BP 126/69 11/30/18 14:40 Pulse Ox 96 11/30/18 14:40 Intake & Output 11/29/18 11/30/18 11/30/18 18:59 06:59 18:59 Intake Total 1100 Output Total 70 855 1070 Balance 1030 855 -1070 Intake: IV 1100 Output: Drainage 205 45 Left Abdomen 205 45 Urine 20 650 1025 Estimated Blood Loss 50 Other: Voiding Method Indwelling Catheter Indwelling Catheter # Voids 4 0 # Bowel Movements 10 0 - Labs CBC & Chem 7: 11/30/18 04:18 11/30/18 04:18 Labs: Abnormal Lab Results - Last 24 Hours (Table) 11/30/18 11/30/18 11/30/18 Range/Units 04:18 04:18 04:18 RBC 3.08 L (3.80-5.40) m/uL Hgb 8.9 L D (11.4-16.0) gm/dL Hct 26.8 L (34.0-46.0) % Lymphocytes # 0.8 L (1.0-4.8) k/uL Potassium 3.0 L (3.5-5.1) mmol/L Chloride 108 H (98-107) mmol/L Carbon Dioxide 18 L (22-30) mmol/L Plasma Lactic Acid Willian <0.5 L (0.7-2.0) mmol/L Calcium 7.5 L (8.4-10.2) mg/dL Total Protein 4.6 L (6.3-8.2) g/dL Albumin 2.4 L (3.5-5.0) g/dL Microbiology - Last 24 Hours (Table) 11/29/18 17:00 Gram Stain - Preliminary Aspirate Body Fluid Culture - Preliminary 11/26/18 20:46 Blood Culture - Preliminary Blood No Growth after 72 hours 11/28/18 16:00 Blood Culture - Preliminary Blood No Growth after 24 hours Assessment and Plan (1) PID (acute pelvic inflammatory disease) Current Visit: Yes Status: Acute Code(s): N73.0 - ACUTE PARAMETRITIS AND PELVIC CELLULITIS SNOMED Code(s): 653632246
[2018-11-30] MEDS ORDERED: POTASSIUM CHLORIDE ER 20 MEQ TAB.ER PO STA (18:50)
[2018-11-30] MEDS ORDERED: POTASSIUM BICARBONATE/CIT AC 20 MEQ TABLET.EFF PO ONE (18:51)
--- NOTE | 2018-11-30 18:52 | P.PN ---
Subjective Progress Note Date: 11/30/18 (delayed charting seen at 1000) Principal diagnosis: abdominal pain Patient is a 23 -year-old female with no known past medical history who presented to the ER with complaints of right lower quadrant pain. In the ER she underwent an extensive evaluation. She initially was seen at urgent care and was sent into the ER for ketone area. Her vital signs within normal limits. Laboratory analysis showed an elevated white blood cell count 13.3, CO2 of 20, urinalysis showed ketones with moderate blood and small leukocyte esterase. She underwent a transvaginal ultrasound showed a large cystic area that she shouldn't to the left ovary with septations and unremarkable right adnexa. CT abdomen and pelvis which showed mild 3 fluid within the pelvis as well as a dilated tubular structure in the right adnexa. She was started on IV antibiotics and IV fluids. She was admitted for further monitoring and care. She was seen by PLATE AND FRAME FILTER OPERATOR who felt she likely had pelvic inflammatory disease and recommended antibiotics and repeat ultrasound in 6 weeks. Initial chlamydia, Trichomonas and gonorrhea came back negative. On 11/28 she started spiking persistent fevers and had increased lower abdominal pain with peritoneal signs. Surgery was consulted and felt that this was likely related to pelvic inflammatory disease. KUB was repeated which was negative. She underwent a repeat CT of abdomen and pelvis which showed peritoneal fluid increasing inflammatory changes, and increasing right-sided fullness. She was taken to the operating room on 11/29 and found to have a right-sided tubular ovarian abscess with pelvic inflammatory disease. Cultures were obtained. Patient seen and examined at bedside. Complains of abdominal pain, not passing gas, no nausea or vomiting, no chest pain or shortness of breath, feeling very fatigued. Family present at bedside all questions answered. Discussed overall prognosis, importance of long-term SOYFREEZE OPERATOR [id number] has never had a Pap smear other SOYFREEZE OPERATOR evaluation. Objective - Vital Signs Vital signs: Vital Signs Temp 99.0 F 11/30/18 14:40 Pulse 102 H 11/30/18 14:40 Resp 16 11/30/18 14:40 BP 126/69 11/30/18 14:40 Pulse Ox 96 11/30/18 14:40 Intake & Output 11/29/18 11/30/18 11/30/18 18:59 06:59 18:59 Intake Total 1100 Output Total 70 855 820 Balance 1030 -855 -820 Intake: IV 1100 Output: Drainage 205 45 Left Abdomen 205 45 Urine 20 650 775 Estimated Blood Loss 50 Other: Voiding Method Indwelling Catheter Indwelling Catheter # Voids 4 0 # Bowel Movements 10 0 - Exam General: Ill appearing, mild distress secondary to pain, appears at stated age Derm: Pale, warm, dry Head: atraumatic, normocephalic, symmetric Eyes: EOMI, no lid lag, anicteric sclera Mouth: no lip lesion, mucus membranes dry Cardiovascular: S1S2 reg, no murmur, positive posterior tibial pulse bilateral, Lungs: CTA bilateral, no rhonchi, no rales , no accessory muscle use Abdominal: soft, hypoactive bowel sounds, + tender to palpation throughout a bdomen, no guarding, no appreciable organomegaly Ext: no gross muscle atrophy, Trace edema, no contractures Neuro: CN II-XI grossly intact, no focal neuro deficits Psych: Alert, oriented, appropriate affect - Labs CBC & Chem 7: 11/30/18 04:18 11/30/18 04:18 Labs: Abnormal Lab Results - Last 24 Hours (Table) 11/30/18 11/30/18 11/30/18 Range/Units 04:18 04:18 04:18 RBC 3.08 L (3.80-5.40) m/uL Hgb 8.9 L D (11.4-16.0) gm/dL Hct 26.8 L (34.0-46.0) % Lymphocytes # 0.8 L (1.0-4.8) k/uL Potassium 3.0 L (3.5-5.1) mmol/L Chloride 108 H (98-107) mmol/L Carbon Dioxide 18 L (22-30) mmol/L Plasma Lactic Acid Willian <0.5 L (0.7-2.0) mmol/L Calcium 7.5 L (8.4-10.2) mg/dL Total Protein 4.6 L (6.3-8.2) g/dL Albumin 2.4 L (3.5-5.0) g/dL Microbiology - Last 24 Hours (Table) 11/29/18 17:00 Gram Stain - Preliminary Aspirate Body Fluid Culture - Preliminary 11/26/18 20:46 Blood Culture - Preliminary Blood No Growth after 72 hours 11/28/18 16:00 Blood Culture - Preliminary Blood No Growth after 24 hours Assessment and Plan Assessment: Tubelo-ovarian abscess with pelvic inflammatory disease with sepsis - s/p ex lap - ID recs - Gen surg/ SOYFREEZE OPERATOR recs -Continue IV fluids -Blood culture negative to date -Chlamydia and Trichomonas negative, gonorrhea negative -Pain control, antibiotics - HIV and RPR negative Acute blood loss anemia - an anticipated outcome of surgery - check FE studies - follow CBC Obesity with BMI 33.8 -Structured outpatient weight loss Ketonuria -The likely secondary to poor oral intake DVT prophylaxis: early ambulation Discussed with: patient, nursing Anticipated discharge:2-[address]: home A total of 25 minutes was spent on the care of this complex patient more than 50% of the time was spent in counseling and care coordination.
--- NOTE | 2018-11-30 22:16 | P.PN ---
Subjective Progress Note Date: 11/30/18 This is a 23-year-old female patient presented to the hospital on November 27 with abdominal pain. She has been followed by Dr. Asencio and Dr. Mast with plan for diagnostic laparoscopy and possible intraoperative intervention for possible tubo-ovarian abscess. Patient has had resolution of leukocytosis but ongoing fevers with low-grade fevers overnight, continued abdominal pain, tenderness and bloating. HCG has been nondetected. Chlamydia and gonorrhea and Trichomonas negative. UA was positive for blood but no significant infection. Blood culture is no growth at 48 hours. Urine culture finalized with vascular genital linh. Patient has been on cefoxitin and doxycycline and currently on IV doxycycline and Zosyn. Patient denies any vaginal discharge. She is sexually active in monogamous relationship for approximately 3 years not currently using anything for contraception and does not use protection. 11/30/2018 the patient is definitely having improvement. Pain is better controlled and doing well with Toradol. Overnight she was acutely ill with high-grade fever that occurred several hours after surgery. Likely was having a significant cytokine related event after the surgery. This is now improved. Although appetites poor she's been able to eat a very small amount. She is not having significant nausea or emesis. Her pain is improved. Some data is reviewed and includes her negative test, negative HIV and syphilis testing. STD testing was otherwise negative. Pathology from the infected tube is pending. They do have a question as to if cultures are negative what happens then. Objective - Vital Signs Vital signs: Vital Signs Temp 98.8 F 11/30/18 19:45 Pulse 105 H 11/30/18 19:45 Resp 19 11/30/18 19:45 BP 127/77 11/30/18 19:45 Pulse Ox 99 11/30/18 19:45 Intake & Output 11/30/18 11/30/18 12/01/18 06:59 18:59 06:59 Output Total 855 1370 Balance -855 -1370 Output: Drainage 205 45 Left Abdomen 205 45 Urine 650 1325 Other: Voiding Method Indwelling Catheter Indwelling Catheter # Voids 0 # Bowel Movements 0 T-max overnight of 103.5 - Exam Gen: This is an obese 23-year-old female. Patient is resting in bed, appears to be somewhat uncomfortable due to abdominal pain. Mother is at bedside. HEENT: Head is atraumatic, normocephalic. Pupils equal, round. Sclerae is anicteric. Conjunctiva pink. Extremities of the mouth are moist. No thrush noted. NECK: Supple. No JVD. No lymphadenopathy. No thyromegaly. LUNGS: Clear to auscultation. No wheezes or rhonchi. No intercostal retractions. Poor inspiratory effort secondary to pain. HEART: Regular rate and rhythm. No murmur. ABDOMEN: Soft. Bowel sounds are present. Mild abdominal distention. Diffuse tenderness. EXTREMITIES: No pedal edema. No calf tenderness. Dorsalis pedis +2 bilaterall y. NEUROLOGICAL: Patient is awake, alert and oriented x3. - Labs CBC & Chem 7: 11/30/18 04:18 11/30/18 04:18 Labs: Abnormal Lab Results - Last 24 Hours (Table) 11/30/18 11/30/18 11/30/18 Range/Units 04:18 04:18 04:18 RBC 3.08 L (3.80-5.40) m/uL Hgb 8.9 L D (11.4-16.0) gm/dL Hct 26.8 L (34.0-46.0) % Lymphocytes # 0.8 L (1.0-4.8) k/uL Potassium 3.0 L (3.5-5.1) mmol/L Chloride 108 H (98-107) mmol/L Carbon Dioxide 18 L (22-30) mmol/L Plasma Lactic Acid Willian <0.5 L (0.7-2.0) mmol/L Calcium 7.5 L (8.4-10.2) mg/dL Total Protein 4.6 L (6.3-8.2) g/dL Albumin 2.4 L (3.5-5.0) g/dL Microbiology - Last 24 Hours (Table) 11/29/18 17:00 Gram Stain - Preliminary Aspirate Body Fluid Culture - Preliminary Gram Neg Bacilli 11/28/18 16:00 Blood Culture - Preliminary Blood No Growth after 48 hours 11/26/18 20:46 Blood Culture - Preliminary Blood No Growth after 72 hours Laboratory Results WBC 8.6 k/uL (3.8-10.6) 11/30/18 04:18 RBC 3.08 m/uL (3.80-5.40) L 11/30/18 04:18 Hgb 8.9 gm/dL (11.4-16.0) L D 11/30/18 04:18 Hct 26.8 % (34.0-46.0) L 11/30/18 04:18 MCV 87.2 fL (80.0-100.0) 11/30/18 04:18 MCH 28.9 pg (25.0-35.0) 11/30/18 04:18 MCHC 33.1 g/dL (31.0-37.0) 11/30/18 04:18 RDW 13.4 % (11.5-15.5) 11/30/18 04:18 Plt Count 196 k/uL (150-450) 11/30/18 04:18 Neutrophils % 86 % 11/30/18 04:18 Lymphocytes % 10 % 11/30/18 04:18 Monocytes % 2 % 11/30/18 04:18 Eosinophils % 0 % 11/30/18 04:18 Basophils % 0 % 11/30/18 04:18 Neutrophils # 7.4 k/uL (1.3-7.7) 11/30/18 04:18 Lymphocytes # 0.8 k/uL (1.0-4.8) L 11/30/18 04:18 Monocytes # 0.2 k/uL (0-1.0) 11/30/18 04:18 Eosinophils # 0.0 k/uL (0-0.7) 11/30/18 04:18 Basophils # 0.0 k/uL (0-0.2) 11/30/18 04:18 PT 10.4 sec (9.0-12.0) 11/26/18 20:46 INR 1.0 (<1.2) 11/26/18 20:46 APTT 26.1 sec (22.0-30.0) 11/26/18 20:46 Sodium 137 mmol/L (137-145) 11/30/18 04:18 Potassium 3.0 mmol/L (3.5-5.1) L 11/30/18 04:18 Chloride 108 mmol/L (98-107) H 11/30/18 04:18 Carbon Dioxide 18 mmol/L (22-30) L 11/30/18 04:18 Anion Gap 11 mmol/L 11/30/18 04:18 BUN 8 mg/dL (7-17) 11/30/18 04:18 Creatinine 0.52 mg/dL (0.52-1.04) 11/30/18 04:18 Est GFR (CKD-EPI)AfAm >90 (>60 ml/min/1.73 sqM) 11/30/18 04:18 Est GFR (CKD-EPI)NonAf >90 (>60 ml/min/1.73 sqM) 11/30/18 04:18 Glucose 86 mg/dL (74-99) 11/30/18 04:18 Plasma Lactic Acid Willian <0.5 mmol/L (0.7-2.0) L 11/30/18 04:18 Calcium 7.5 mg/dL (8.4-10.2) L 11/30/18 04:18 Magnesium 1.6 mg/dL (1.6-2.3) 11/30/18 04:18 Total Bilirubin 0.4 mg/dL (0.2-1.3) 11/30/18 04:18 AST 15 U/L (14-36) 11/30/18 04:18 ALT 26 U/L (9-52) 11/30/18 04:18 Alkaline Phosphatase 51 U/L (38-126) 11/30/18 04:18 Total Protein 4.6 g/dL (6.3-8.2) L 11/30/18 04:18 Albumin 2.4 g/dL (3.5-5.0) L 11/30/18 04:18 HCG, Qual Not Detected 11/28/18 17:02 HCG, Quant <2.4 mIU/mL 11/28/18 17:02 Urine Color Yellow 11/26/18 21:00 Urine Appearance Clear (Clear) 11/26/18 21:00 Urine pH 6.0 (5.0-8.0) 11/26/18 21:00 Ur Specific [place] 1.023 (1.001-1.035) 11/26/18 21:00 Urine Protein Trace (Negative) H 11/26/18 21:00 Urine Glucose (UA) Negative (Negative) 11/26/18 21:00 Urine Ketones 4+ (Negative) H 11/26/18 21:00 Urine Blood Moderate (Negative) H 11/26/18 21:00 Urine Nitrite Negative (Negative) 11/26/18 21:00 Urine Bilirubin Negative (Negative) 11/26/18 21:00 Urine Urobilinogen <2.0 mg/dL (<2.0) 11/26/18 21:00 Ur Leukocyte Esterase Small (Negative) H 11/26/18 21:00 Urine RBC 10 /hpf (0-5) H 11/26/18 21:00 Urine WBC 1 /hpf (0-5) 11/26/18 21:00 Ur Squamous Epith Cells <1 /hpf (0-4) 11/26/18 21:00 Urine Mucus Rare /hpf (None) H 11/26/18 21:00 Urine HCG, Qual Not Detected (Not Detectd) 11/26/18 21:00 Treponema pallidum Ab Non-Reactive (Non-Reactive) 11/30/18 04:18 Chlamydia Source Vagina 11/26/18 22:06 Chlamydia DNA (PCR) Negative (Neg,Equiv) 11/26/18 22:06 C. difficile (EIA) Intrp Negative (Negative) 11/29/18 14:00 HIV-1 Antibody Non-Reactive (Non-Reactive) 11/30/18 04:18 HIV Ag/Ab Interpret 11/30/18 04:18 HIV p24 Antibody Non-Reactive (Non-Reactive) 11/30/18 04:18 HIV-2 Antibody Non-Reactive (Non-Reactive) 11/30/18 04:18 HIV P24 Antigen Non-Reactive (Non-Reactive) 11/30/18 04:18 N. gonorrhoeae Source Vagina 11/26/18 22:06 N.gonorrhoeae DNA Probe Negative (Neg,Equiv) 11/26/18 22:06 Trichomonas Ag (Rapid) Negative (Negative) 11/26/18 22:06 Microbiology 11/29/18 17:00 Aspirate Gram Stain - Preliminary 11/29/18 17:00 Aspirate Body Fluid Culture - Preliminary Gram Neg Bacilli 11/28/18 16:00 Blood Blood Culture - Preliminary No Growth after 48 hours 11/26/18 20:46 Blood Blood Culture - Preliminary No Growth after 72 hours 11/26/18 21:00 Urine,Voided Urine Culture - Final Assessment and Plan (1) Tubo-ovarian abscess Narrative/Plan: This pleasant 23-year-old woman was ill for approximately a week before she presented for care. It is tender and has evidence of the extensive intra- abdominal infection related to the tubo-ovarian abscess. Been taken in the operating room and the right salpingostomy was performed as well as abdominal lavage and lysis of adhesions. The patient has not had this discomfort in the past. Pathology is pending. Antibiotic therapy with ampicillin sulbactam and doxycycline are recommended. Also per guidelines HIV testing and RPR will be requested. When she has improved should be able to transition to oral antibiotic therapy at discharge. 11/30/2018 the patient had a difficult night with 103.5 fever occurring after surgery likely based on significant cytokine response. Feeling considerably better today and stable to ingest a small amount of food and her pain is improving. She is not having fever through the day today. She is hemodynamically stable and her oxygenation has stabilized. At this time she is on appropriate antibiotic therapy with Unasyn and doxycycline. Wound culture showing evidence of gram-negative bacilli which would be expected. This will help direct the course of antibiotic therapy at the time of the discharge in the next few days as she stabilizes. Fortunately HIV, syphilis and STD testing are all negative. Current Visit: Yes Status: Acute Code(s): N70.93 - SALPINGITIS AND OOPHORITIS, UNSPECIFIED SNOMED Code(s): 01759223
[2018-12-01] MEDS: AMPICILLIN-SULBACTAM 3 GM in SODIUM CHLORIDE 0.9% 100 ML IVPB SCH ×4 (00:17→17:05)
[2018-12-01] MEDS: SODIUM CHLORIDE 0.9% 1,000 ML IV SCH ×2 (02:11→11:23)
[2018-12-01] MEDS: KETOROLAC 30 MG/ML 1 ML VIAL IVP SCH ×4 (03:23→20:50)
[2018-12-01] MEDS: DOXYCYCLINE 100 MG in SODIUM CHLORIDE 0.9% 100 ML IVPB SCH ×2 (03:25→15:43)
--- NOTE | 2018-12-01 06:30 | P.PN ---
Progress Note - Text Progress Note Date: 12/01/18 Patient is seen and examined. This is postoperative day #2. She clinically appears markedly improved from yesterday. Vital signs are stable she's had some low-grade temps. CBC is pending at time of this dictation. Patient is having excellent urine output. Her YUE drain is still draining quite a bit of fluid. Preliminary culture results show gram-negative bacilli that has not been identified yet. It appears this antibiotic choice is working. Incision is intact and dry. Patient's catheter was removed yesterday and does not need to be replaced. She is tolerating a few clear liquids but bowel function is slow to return which is very much expected. Plan today is to continue to ambulate, allow the patient to shower, Check a CBC, weight final culture results, and continue supportive care. She understands were probably looking at another 3-4 days before she'll be able to be going home on oral antibiotics. It is my impression that she is definitely improving therefore we'll continue present management.
[2018-12-01] MEDS ORDERED: HYDROcodone/APAP 5-325MG 1 EACH TAB PO PRN (06:32)
[2018-12-01] MEDS: ONDANSETRON 4 MG/2 ML VIAL IVP PRN (07:12)
[2018-12-01] MEDS: LORATADINE 10 MG TAB PO SCH (07:45)
[2018-12-01] MEDS: PANTOPRAZOLE 40 MG/10 ML VIAL IVP SCH (07:47)
[2018-12-01 07:53] LABS: Basophils % (A) 0 %; Eosinophils # (A) 0.1 k/uL (0-0.7); Eosinophils % (A) 2 %; Lymphocytes % (A) 12 %; MCH 29.4 pg (25.0-35.0); MCHC 33.4 g/dL (31.0-37.0); MCV 88.2 fL (80.0-100.0); Mean Platelet Volume 6.9; Monocytes # (A) 0.2 k/uL (0-1.0); Monocytes % (A) 2 %; Neutrophils # (A) 6.4 k/uL (1.3-7.7); Neutrophils % (A) 82 %; Platelet Count 240 k/uL (150-450); RDW 13.2 % (11.5-15.5); WBC 7.7 k/uL (3.8-10.6)
[2018-12-01 08:05] LABS: ALT 22 U/L (9-52); AST 18 U/L (14-36); African American GFR (CKD) >90 (>60 ml/min/1.73 sqM); Albumin 2.8 g/dL (3.5-5.0); Alkaline Phosphatase 56 U/L (38-126); Anion Gap 10 mmol/L; Blood Urea Nitrogen 8 mg/dL (7-17); Calcium 8.5 mg/dL (8.4-10.2); Carbon Dioxide 18 mmol/L (22-30); Chloride 112 mmol/L (98-107); Glucose 82 mg/dL (74-99); Potassium 4.3 mmol/L (3.5-5.1); Sodium 140 mmol/L (137-145); Total Bilirubin 0.5 mg/dL (0.2-1.3); Total Protein 5.4 g/dL (6.3-8.2)
--- NOTE | 2018-12-01 08:14 | P.PN ---
Subjective Progress Note Date: 12/01/18 Principal diagnosis: Abdominal pain Patient feels nauseated today. Appetite diminished. Still having some loose stools however. YUE is serosanguineous. T-max 99. White blood cell count is normal. Cultures are showing gram-negative bacilli. Objective - Vital Signs Vital signs: Vital Signs Temp 98 F 12/01/18 07:00 Pulse 105 H 12/01/18 07:00 Resp 18 12/01/18 05:05 BP 124/79 12/01/18 07:00 Pulse Ox 98 12/01/18 07:00 Intake & Output 11/30/18 12/01/18 12/01/18 18:59 06:59 18:59 Output Total 1370 910 80 Balance -1370 -910 -80 Output: Drainage 45 335 30 Left Abdomen 45 335 30 Urine 1325 575 50 Other: Voiding Method Indwelling Catheter Indwelling Catheter - Exam Abdomen: Soft, mild distention, mild tenderness, incision clean and dry, YUE serous - Labs CBC & Chem 7: 12/01/18 07:08 12/01/18 07:08 Labs: Abnormal Lab Results - Last 24 Hours (Table) 12/01/18 12/01/18 Range/Units 07:08 07:08 RBC 3.40 L (3.80-5.40) m/uL Hgb 10.0 L (11.4-16.0) gm/dL Hct 30.0 L (34.0-46.0) % Chloride 112 H (98-107) mmol/L Carbon Dioxide 18 L (22-30) mmol/L Total Protein 5.4 L (6.3-8.2) g/dL Albumin 2.8 L (3.5-5.0) g/dL Microbiology - Last 24 Hours (Table) 11/26/18 20:46 Blood Culture - Preliminary Blood No Growth after 96 hours 11/29/18 17:00 Gram Stain - Preliminary Aspirate Body Fluid Culture - Preliminary Gram Neg Bacilli 11/28/18 16:00 Blood Culture - Preliminary Blood No Growth after 48 hours Assessment and Plan (1) PID (acute pelvic inflammatory disease) Narrative/Plan: Gradually patient is improving. Continue antibiotics. Continue full liquids only for now. Ambulate. Keep YUE drain. Current Visit: Yes Status: Acute Code(s): N73.0 - ACUTE PARAMETRITIS AND PELVIC CELLULITIS SNOMED Code(s): 686923857
[2018-12-01 17:16] LABS: Ferritin 163.3 ng/mL (10.0-291.0)
[2018-12-01 17:18] LABS: Iron Saturation 8.04 (12.00-45.00)
--- NOTE | 2018-12-01 17:19 | P.PN ---
Subjective Progress Note Date: 12/01/18 (delayed charting seen at 1100) Principal diagnosis: abdominal pain Patient is a 23 -year-old female with no known past medical history who presented to the ER with complaints of right lower quadrant pain. In the ER she underwent an extensive evaluation. She initially was seen at urgent care and was sent into the ER for ketone area. Her vital signs within normal limits. Laboratory analysis showed an elevated white blood cell count 13.3, CO2 of 20, urinalysis showed ketones with moderate blood and small leukocyte esterase. She underwent a transvaginal ultrasound showed a large cystic area that she shouldn't to the left ovary with septations and unremarkable right adnexa. CT abdomen and pelvis which showed mild free fluid within the pelvis as well as a dilated tubular structure in the right adnexa. She was started on IV antibiotics and IV fluids. She was admitted for further monitoring and care. She was seen by PHYSICS TUTOR who felt she likely had pelvic inflammatory disease and recommended antibiotics and repeat ultrasound in 6 weeks. Initial chlamydia, Trichomonas and gonorrhea came back negative. On 11/28 she started spiking persistent fevers and had increased lower abdominal pain with peritoneal signs. Surgery was consulted and felt that this was likely related to pelvic inflammatory disease. KUB was repeated which was negative. She underwent a repeat CT of abdomen and pelvis which showed peritoneal fluid increasing inflammatory changes, and increasing right-sided fullness. She was taken to the operating room on 11/29 and found to have a right-sided tubular ovarian abscess with pelvic inflammatory disease. Cultures were obtained and growing gram negative bacilli. On the morning of 12/01 afebrile X 24 hours. Patient seen and examined at bedside.Has been unable to tolerate either full or clear liquids. Having nausea and vomiting with both Jell-O and pudding. Having frequent watery diarrhea. Abdominal pain slightly better than yesterday. No chest pain, shortness of breath, or edema. Objective - Vital Signs Vital signs: Vital Signs Temp 98.2 F 12/01/18 14:46 Pulse 98 12/01/18 14:46 Resp 12 12/01/18 14:46 BP 116/77 12/01/18 14:46 Pulse Ox 100 12/01/18 14:46 Intake & Output 11/30/18 12/01/18 12/01/18 18:59 06:59 18:59 Output Total 5037 948 3210 Balance -1370 -910 -1060 Output: Drainage 45 335 140 Left Abdomen 45 335 140 Urine 1325 575 500 Stool 420 Other: Voiding Method Indwelling Catheter Indwelling Catheter Indwelling Catheter - Exam General: Ill appearing, no distress, appears at stated age Derm: Pale, warm, dry Head: atraumatic, normocephalic, symmetric Eyes: EOMI, no lid lag, anicteric sclera Mouth: no lip lesion, mucus membranes dry Cardiovascular: S1S2 reg, no murmur, positive posterior tibial pulse bilateral, Lungs: CTA bilateral, no rhonchi, no rales , no accessory muscle use Abdominal: soft, hypoactive bowel sounds, + RLQ and LLQ, no guarding, no appreciable organomegaly Ext: no gross muscle atrophy, Trace edema, no contractures Neuro: CN II-XI grossly intact, no focal neuro deficits Psych: Alert, oriented, appropriate affect - Labs CBC & Chem 7: 12/01/18 07:08 12/01/18 07:08 Labs: Abnormal Lab Results - Last 24 Hours (Table) 12/01/18 12/01/18 Range/Units 07:08 07:08 RBC 3.40 L (3.80-5.40) m/uL Hgb 10.0 L (11.4-16.0) gm/dL Hct 30.0 L (34.0-46.0) % Chloride 112 H (98-107) mmol/L Carbon Dioxide 18 L (22-30) mmol/L Total Protein 5.4 L (6.3-8.2) g/dL Albumin 2.8 L (3.5-5.0) g/dL Microbiology - Last 24 Hours (Table) 11/26/18 20:46 Blood Culture - Preliminary Blood No Growth after 96 hours 11/29/18 17:00 Gram Stain - Preliminary Aspirate Body Fluid Culture - Preliminary Gram Neg Bacilli 11/28/18 16:00 Blood Culture - Preliminary Blood No Growth after 48 hours Assessment and Plan Assessment: Tubelo-ovarian abscess with pelvic inflammatory disease with sepsis - s/p ex lap - [place] Gram negative bacilli - ID recs appreciated - Gen surg/ [facility] recs appreciate -IV fluids -Blood culture negative to date -Chlamydia and Trichomonas negative, gonorrhea negative -Pain control, antibiotics - HIV and RPR negative Hyperchloremic metabolic acidosis - still with low oral intake and IVF needed, change to 0.45NS - repeat labs in AM Acute blood loss anemia - an anticipated outcome of surgery - Ferritin low normal - follow CBC Obesity with BMI 33.8 -Structured outpatient weight loss Ketonuria -The likely secondary to poor oral intake Hypokalemia, resolved DVT prophylaxis: early ambulation Discussed with: patient, nursing Anticipated discharge:2-[address]: home A total of 25 minutes was spent on the care of this complex patient more than 50% of the time was spent in counseling and care coordination.
[2018-12-01] MEDS: SODIUM CHLORIDE 0.45% 1,000 ML IV SCH (20:49)
--- NOTE | 2018-12-01 22:48 | P.PN ---
Subjective Progress Note Date: 12/01/18 This is a 23-year-old female patient presented to the hospital on November 27 with abdominal pain. She has been followed by Dr. Asencio and Dr. Mast with plan for diagnostic laparoscopy and possible intraoperative intervention for possible tubo-ovarian abscess. Patient has had resolution of leukocytosis but ongoing fevers with low-grade fevers overnight, continued abdominal pain, tenderness and bloating. HCG has been nondetected. Chlamydia and gonorrhea and Trichomonas negative. UA was positive for blood but no significant infection. Blood culture is no growth at 48 hours. Urine culture finalized with vascular genital linh. Patient has been on cefoxitin and doxycycline and currently on IV doxycycline and Zosyn. Patient denies any vaginal discharge. She is sexually active in monogamous relationship for approximately 3 years not currently using anything for contraception and does not use protection. 11/30/2018 the patient is definitely having improvement. Pain is better controlled and doing well with Toradol. Overnight she was acutely ill with high-grade fever that occurred several hours after surgery. Likely was having a significant cytokine related event after the surgery. This is now improved. Although appetites poor she's been able to eat a very small amount. She is not having significant nausea or emesis. Her pain is improved. Some data is reviewed and includes her negative test, negative HIV and syphilis testing. STD testing was otherwise negative. Pathology from the infected tube is pending. They do have a question as to if cultures are negative what happens then. 12/01/2018 patient is having some improvement but still has some nausea in fever at times. Appetite is poor but is starting to improve just a bit. Objective - Vital Signs Vital signs: Vital Signs Temp 99.5 F 12/01/18 19:46 Pulse 116 H 12/01/18 19:46 Resp 19 12/01/18 19:46 BP 127/77 12/01/18 19:46 Pulse Ox 99 12/01/18 19:46 Intake & Output 12/01/18 12/01/18 12/02/18 06:59 18:59 06:59 Output Total 910 1360 350 Balance -910 -1360 -350 Output: Drainage 335 140 60 Left Abdomen 335 140 60 Urine 575 600 250 Stool 620 40 Other: Voiding Method Indwelling Catheter Indwelling Catheter # Voids 1 # Bowel Movements 1 - Exam Gen: This is an obese 23-year-old female. Patient is resting in bed, appears to be somewhat uncomfortable due to abdominal pain. Mother is at bedside. HEENT: Head is atraumatic, normocephalic. Pupils equal, round. Sclerae is anicteric. Conjunctiva pink. Extremities of the mouth are moist. No thrush noted. NECK: Supple. No JVD. No lymphadenopathy. No thyromegaly. LUNGS: Clear to auscultation. No wheezes or rhonchi. No intercostal retractions. Poor inspiratory effort secondary to pain. HEART: Regular rate and rhythm. No murmur. ABDOMEN: Soft. Bowel sounds are present. Mild abdominal distention. Diffuse tenderness. EXTREMITIES: No pedal edema. No calf tenderness. Dorsalis pedis +2 bilaterally. NEUROLOGICAL: Patient is awake, alert and oriented x3. - Labs CBC & Chem 7: 12/01/18 07:08 12/01/18 07:08 Labs: Abnormal Lab Results - Last 24 Hours (Table) 12/01/18 12/01/18 12/01/18 Range/Units 07:08 07:08 07:08 RBC 3.40 L (3.80-5.40) m/uL Hgb 10.0 L (11.4-16.0) gm/dL Hct 30.0 L (34.0-46.0) % Chloride 112 H (98-107) mmol/L Carbon Dioxide 18 L (22-30) mmol/L Iron 18 L (50-170) ug/dL TIBC 224 L (228-460) ug/dL Iron Saturation 8.04 L (12.00-45.00) Total Protein 5.4 L (6.3-8.2) g/dL Albumin 2.8 L (3.5-5.0) g/dL Microbiology - Last 24 Hours (Table) 11/29/18 17:00 Gram Stain - Preliminary Aspirate Body Fluid Culture - Preliminary Escherichia coli 11/28/18 16:00 Blood Culture - Preliminary Blood No Growth after 72 hours 11/26/18 20:46 Blood Culture - Preliminary Blood No Growth after 96 hours Laboratory Results WBC 7.7 k/uL (3.8-10.6) 12/01/18 07:08 RBC 3.40 m/uL (3.80-5.40) L 12/01/18 07:08 Hgb 10.0 gm/dL (11.4-16.0) L 12/01/18 07:08 Hct 30.0 % (34.0-46.0) L 12/01/18 07:08 MCV 88.2 fL (80.0-100.0) 12/01/18 07:08 MCH 29.4 pg (25.0-35.0) 12/01/18 07:08 MCHC 33.4 g/dL (31.0-37.0) 12/01/18 07:08 RDW 13.2 % (11.5-15.5) 12/01/18 07:08 Plt Count 240 k/uL (150-450) 12/01/18 07:08 Neutrophils % 82 % 12/01/18 07:08 Lymphocytes % 12 % 12/01/18 07:08 Monocytes % 2 % 12/01/18 07:08 Eosinophils % 2 % 12/01/18 07:08 Basophils % 0 % 12/01/18 07:08 Neutrophils # 6.4 k/uL (1.3-7.7) 12/01/18 07:08 Lymphocytes # 1.0 k/uL (1.0-4.8) 12/01/18 07:08 Monocytes # 0.2 k/uL (0-1.0) 12/01/18 07:08 Eosinophils # 0.1 k/uL (0-0.7) 12/01/18 07:08 Basophils # 0.0 k/uL (0-0.2) 12/01/18 07:08 PT 10.4 sec (9.0-12.0) 11/26/18 20:46 INR 1.0 (<1.2) 11/26/18 20:46 APTT 26.1 sec (22.0-30.0) 11/26/18 20:46 Sodium 140 mmol/L (137-145) 12/01/18 07:08 Potassium 4.3 mmol/L (3.5-5.1) 12/01/18 07:08 Chloride 112 mmol/L (98-107) H 12/01/18 07:08 Carbon Dioxide 18 mmol/L (22-30) L 12/01/18 07:08 Anion Gap 10 mmol/L 12/01/18 07:08 BUN 8 mg/dL (7-17) 12/01/18 07:08 Creatinine 0.58 mg/dL (0.52-1.04) 12/01/18 07:08 Est GFR (CKD-EPI)AfAm >90 (>60 ml/min/1.73 sqM) 12/01/18 07:08 Est GFR (CKD-EPI)NonAf >90 (>60 ml/min/1.73 sqM) 12/01/18 07:08 Glucose 82 mg/dL (74-99) 12/01/18 07:08 Plasma Lactic Acid Willian <0.5 mmol/L (0.7-2.0) L 11/30/18 04:18 Calcium 8.5 mg/dL (8.4-10.2) 12/01/18 07:08 Magnesium 1.6 mg/dL (1.6-2.3) 11/30/18 04:18 Iron 18 ug/dL (50-170) L 12/01/18 07:08 TIBC 224 ug/dL (228-460) L 12/01/18 07:08 Iron Saturation 8.04 (12.00-45.00) L 12/01/18 07:08 Ferritin 163.3 ng/mL (10.0-291.0) 12/01/18 07:08 Total Bilirubin 0.5 mg/dL (0.2-1.3) 12/01/18 07:08 AST 18 U/L (14-36) 12/01/18 07:08 ALT 22 U/L (9-52) 12/01/18 07:08 Alkaline Phosphatase 56 U/L (38-126) 12/01/18 07:08 Total Protein 5.4 g/dL (6.3-8.2) L 12/01/18 07:08 Albumin 2.8 g/dL (3.5-5.0) L 12/01/18 07:08 HCG, Qual Not Detected 11/28/18 17:02 HCG, Quant <2.4 mIU/mL 11/28/18 17:02 Urine Color Yellow 11/26/18 21:00 Urine Appearance Clear (Clear) 11/26/18 21:00 Urine pH 6.0 (5.0-8.0) 11/26/18 21:00 Ur Specific [place] 1.023 (1.001-1.035) 11/26/18 21:00 Urine Protein Trace (Negative) H 11/26/18 21:00 Urine Glucose (UA) Negative (Negative) 11/26/18 21:00 Urine Ketones 4+ (Negative) H 11/26/18 21:00 Urine Blood Moderate (Negative) H 11/26/18 21:00 Urine Nitrite Negative (Negative) 11/26/18 21:00 Urine Bilirubin Negative (Negative) 11/26/18 21:00 Urine Urobilinogen <2.0 mg/dL (<2.0) 11/26/18 21:00 Ur Leukocyte Esterase Small (Negative) H 11/26/18 21:00 Urine RBC 10 /hpf (0-5) H 11/26/18 21:00 Urine WBC 1 /hpf (0-5) 11/26/18 21:00 Ur Squamous Epith Cells <1 /hpf (0-4) 11/26/18 21:00 Urine Mucus Rare /hpf (None) H 11/26/18 21:00 Urine HCG, Qual Not Detected (Not Detectd) 11/26/18 21:00 Treponema pallidum Ab Non-Reactive (Non-Reactive) 11/30/18 04:18 Chlamydia Source Vagina 11/26/18 22:06 Chlamydia DNA (PCR) Negative (Neg,Equiv) 11/26/18 22:06 C. difficile (EIA) Intrp Negative (Negative) 11/29/18 14:00 HIV-1 Antibody Non-Reactive (Non-Reactive) 11/30/18 04:18 HIV Ag/Ab Interpret 11/30/18 04:18 HIV p24 Antibody Non-Reactive (Non-Reactive) 11/30/18 04:18 HIV-2 Antibody Non-Reactive (Non-Reactive) 11/30/18 04:18 HIV P24 Antigen Non-Reactive (Non-Reactive) 11/30/18 04:18 N. gonorrhoeae Source Vagina 11/26/18 22:06 N.gonorrhoeae DNA Probe Negative (Neg,Equiv) 11/26/18 22:06 Trichomonas Ag (Rapid) Negative (Negative) 11/26/18 22:06 Microbiology 11/29/18 17:00 Aspirate Gram Stain - Preliminary 11/29/18 17:00 Aspirate Body Fluid Culture - Preliminary Escherichia coli 11/28/18 16:00 Blood Blood Culture - Preliminary No Growth after 72 hours 11/26/18 20:46 Blood Blood Culture - Preliminary No Growth after 96 hours 11/26/18 21:00 Urine,Voided Urine Culture - Final Assessment and Plan (1) Tubo-ovarian abscess Narrative/Plan: This pleasant 23-year-old woman was ill for approximately a week before she presented for care. It is tender and has evidence of the extensive intra- abdominal infection related to the tubo-ovarian abscess. Been taken in the operating room and the right salpingostomy was performed as well as abdominal lavage and lysis of adhesions. The patient has not had this discomfort in the past. Pathology is pending. Antibiotic therapy with ampicillin sulbactam and doxycycline are recommended. Also per guidelines HIV testing and RPR will be requested. When she has improved should be able to transition to oral antibiotic therapy at discharge. 11/30/2018 the patient had a difficult night with 103.5 fever occurring after surgery likely based on significant cytokine response. Feeling considerably better today and stable to ingest a small amount of food and her pain is improving. She is not having fever through the day today. She is hemodynamically stable and her oxygenation has stabilized. At this time she is on appropriate antibiotic therapy with Unasyn and doxycycline. Wound culture showing evidence of gram-negative bacilli which would be expected. This will help direct the course of antibiotic therapy at the time of the discharge in the next few days as she stabilizes. Fortunately HIV, syphilis and STD testing are all negative. 12/01/2018 the patient is still feeling somewhat poorly. She's had some low- grade fever and still feels somewhat ill. It is Dar[place] continue to await the final cultures and will adjust antibiotics as indicated. As an addendum cultures have now become available and the E. coli that isolate is resistant to Unasyn as well as doxycycline. Consequently antibiotic therapy is altered to Rocephin and metronidazole. She is improved and ready for discharge to home cefuroxime and metronidazole will be utilized orally to complete her course of therapy. Current Visit: Yes Status: Acute Code(s): N70.93 - SALPINGITIS AND OOPHORITIS, UNSPECIFIED SNOMED Code(s): 09614291
[2018-12-02] MEDS: metroNIDAZOLE-NS PMX 500 MG in SALINE 1 100ML.BAG IVPB SCH ×4 (01:13→23:55)
[2018-12-02] MEDS: KETOROLAC 30 MG/ML 1 ML VIAL IVP SCH ×4 (03:57→20:42)
[2018-12-02] MEDS: SODIUM CHLORIDE 0.45% 1,000 ML IV SCH ×2 (04:02→11:28)
[2018-12-02 08:11] LABS: ALT 15 U/L (9-52); AST 16 U/L (14-36); African American GFR (CKD) >90 (>60 ml/min/1.73 sqM); Albumin 2.5 g/dL (3.5-5.0); Alkaline Phosphatase 50 U/L (38-126); Anion Gap 7 mmol/L; Basophils % (A) 1 %; Blood Urea Nitrogen 6 mg/dL (7-17); Calcium 7.9 mg/dL (8.4-10.2); Carbon Dioxide 22 mmol/L (22-30); Chloride 109 mmol/L (98-107); Eosinophils # (A) 0.2 k/uL (0-0.7); Eosinophils % (A) 4 %; Glucose 89 mg/dL (74-99); HCT 24.1 % (34.0-46.0); Lymphocytes # (A) 0.8 k/uL (1.0-4.8); Lymphocytes % (A) 14 %; MCH 28.6 pg (25.0-35.0); MCHC 32.9 g/dL (31.0-37.0); MCV 86.9 fL (80.0-100.0); Mean Platelet Volume 8.1; Monocytes # (A) 0.3 k/uL (0-1.0); Monocytes % (A) 5 %; Neutrophils # (A) 4.4 k/uL (1.3-7.7); Neutrophils % (A) 76 %; Platelet Count 245 k/uL (150-450); Potassium 3.5 mmol/L (3.5-5.1); RBC 2.77 m/uL (3.80-5.40); RDW 13.5 % (11.5-15.5); Sodium 138 mmol/L (137-145); Total Bilirubin 0.2 mg/dL (0.2-1.3); Total Protein 4.9 g/dL (6.3-8.2); WBC 5.8 k/uL (3.8-10.6)
[2018-12-02 08:17] LABS: HGB 7.9 gm/dL (11.4-16.0)
[2018-12-02] MEDS: PANTOPRAZOLE 40 MG TABLET PO SCH (08:27)
[2018-12-02] MEDS: LORATADINE 10 MG TAB PO SCH (08:27)
[2018-12-02 08:55] LABS: HCT 28.7 % (34.0-46.0); MCH 28.6 pg (25.0-35.0); MCHC 33.1 g/dL (31.0-37.0); MCV 86.3 fL (80.0-100.0); Mean Platelet Volume 7.3; Platelet Count 281 k/uL (150-450); RBC 3.33 m/uL (3.80-5.40); WBC 6.7 k/uL (3.8-10.6)
[2018-12-02 09:03] LABS: HGB 9.5 gm/dL (11.4-16.0)
--- NOTE | 2018-12-02 10:13 | P.PN ---
Progress Note - Text Progress Note Date: 12/02/18 Patient is seen and examined. This is postoperative day #3. She is seen ambulating in the room and feeling well. Incision is C/D/I. drain is putting out purulent fluid. Afebrile and tolerating reg diet. normal post op discomfort. She is on the correct antibiotic for the bacteria of e.coli. Discussed how this may have gotten into her pelvis.
[2018-12-02] MEDS ORDERED: SODIUM CHLORIDE 0.45% 1,000 ML IV ONE (10:34)
--- NOTE | 2018-12-02 10:35 | P.PN ---
Subjective Progress Note Date: 12/02/18 Principal diagnosis: Abdominal pain Patient doing much better today. She is ambulating. Pain is better controlled. White blood cell count 5.8. Hemoglobin 9.5. T-max 99.5. Cultures show E. coli. Objective - Vital Signs Vital signs: Vital Signs Temp 98.0 F 12/02/18 07:36 Pulse 101 H 12/02/18 07:36 Resp 18 12/02/18 07:36 BP 132/70 12/02/18 07:36 Pulse Ox 96 12/02/18 07:36 Intake & Output 12/01/18 12/02/18 12/02/18 18:59 06:59 18:59 Intake Total 1240 Output Total 1360 770 290 Balance -1360 -770 950 Intake: Intake, IV Titration 300 Amount Sodium Chloride 0.45% 1, 200 000 ml @ 100 mls/hr IV . Q10H [facility] Rx#:[id number] metroNIDAZOLE-NS PMX 500 100 mg In Saline 1 100ml.bag @ 100 mls/hr IVPB Q8HR [facility] Rx#:[id number] Oral 940 Output: Drainage 140 100 70 Left Abdomen 140 100 70 Urine 600 550 220 Stool 620 120 Other: Voiding Method Indwelling Catheter Toilet Toilet # Voids 1 1 # Bowel Movements 1 - Exam Abdomen: Soft, nondistended, mild tenderness, incision clean and dry, YUE seropurulent - Labs CBC & Chem 7: 12/02/18 08:29 12/02/18 06:31 Labs: Abnormal Lab Results - Last 24 Hours (Table) 12/01/18 12/02/18 12/02/18 Range/Units 07:08 06:31 06:31 RBC 2.77 L (3.80-5.40) m/uL Hgb 7.9 L D (11.4-16.0) gm/dL Hct 24.1 L (34.0-46.0) % Lymphocytes # 0.8 L (1.0-4.8) k/uL Chloride 109 H (98-107) mmol/L BUN 6 L (7-17) mg/dL Creatinine 0.47 L (0.52-1.04) mg/dL Calcium 7.9 L (8.4-10.2) mg/dL Iron 18 L (50-170) ug/dL TIBC 224 L (228-460) ug/dL Iron Saturation 8.04 L (12.00-45.00) Total Protein 4.9 L (6.3-8.2) g/dL Albumin 2.5 L (3.5-5.0) g/dL 12/02/18 Range/Units 08:29 RBC 3.33 L (3.80-5.40) m/uL Hgb 9.5 L D (11.4-16.0) gm/dL Hct 28.7 L (34.0-46.0) % Lymphocytes # (1.0-4.8) k/uL Chloride (98-107) mmol/L BUN (7-17) mg/dL Creatinine (0.52-1.04) mg/dL Calcium (8.4-10.2) mg/dL Iron (50-170) ug/dL TIBC (228-460) ug/dL Iron Saturation (12.00-45.00) Total Protein (6.3-8.2) g/dL Albumin (3.5-5.0) g/dL Microbiology - Last 24 Hours (Table) 11/26/18 20:46 Blood Culture - Preliminary Blood No Growth after 120 hours 11/29/18 17:00 Gram Stain - Preliminary Aspirate Body Fluid Culture - Preliminary Escherichia coli 11/28/18 16:00 Blood Culture - Preliminary Blood No Growth after 72 hours Assessment and Plan (1) PID (acute pelvic inflammatory disease) Narrative/Plan: Patient doing better. E. coli results discussed with the patient. This was also discussed with gynecology. Continue antibiotics. Advance diet. Possible discharge tomorrow on oral antibiotics. Current Visit: Yes Status: Acute Code(s): N73.0 - ACUTE PARAMETRITIS AND PELVIC CELLULITIS SNOMED Code(s): 096824228
--- NOTE | 2018-12-02 14:55 | P.PN ---
Subjective Progress Note Date: 12/02/18 This is a 23-year-old female patient presented to the hospital on November 27 with abdominal pain. She has been followed by Dr. Asencio and Dr. Mast with plan for diagnostic laparoscopy and possible intraoperative intervention for possible tubo-ovarian abscess. Patient has had resolution of leukocytosis but ongoing fevers with low-grade fevers overnight, continued abdominal pain, tenderness and bloating. HCG has been nondetected. Chlamydia and gonorrhea and Trichomonas negative. UA was positive for blood but no significant infection. Blood culture is no growth at 48 hours. Urine culture finalized with vascular genital linh. Patient has been on cefoxitin and doxycycline and currently on IV doxycycline and Zosyn. Patient denies any vaginal discharge. She is sexually active in monogamous relationship for approximately 3 years not currently using anything for contraception and does not use protection. 11/30/2018 the patient is definitely having improvement. Pain is better controlled and doing well with Toradol. Overnight she was acutely ill with high-grade fever that occurred several hours after surgery. Likely was having a significant cytokine related event after the surgery. This is now improved. Although appetites poor she's been able to eat a very small amount. She is not having significant nausea or emesis. Her pain is improved. Some data is reviewed and includes her negative test, negative HIV and syphilis testing. STD testing was otherwise negative. Pathology from the infected tube is pending. They do have a question as to if cultures are negative what happens then. 12/01/2018 patient is having some improvement but still has some nausea in fever at times. Appetite is poor but is starting to improve just a bit. 12/02/2018 the patient is feeling considerably better today. She relates that her pain is now improved, her nausea has generally resolved and she started a some solid food without great difficulties. However does not like milk products. Her fever is now improved. She's having no further chills. Objective - Vital Signs Vital signs: Vital Signs Temp 98.0 F 12/02/18 07:36 Pulse 101 H 12/02/18 07:36 Resp 18 12/02/18 07:36 BP 132/70 12/02/18 07:36 Pulse Ox 96 12/02/18 07:36 Intake & Output 12/01/18 12/02/18 12/02/18 18:59 06:59 18:59 Intake Total 2770 Output Total 4146 430 4077 Balance -1360 -770 1580 Intake: Intake, IV Titration 750 Amount Sodium Chloride 0.45% 1, 500 000 ml @ 100 mls/hr IV . Q10H [facility] Rx#:[id number] Sodium Chloride 0.45% 1, 150 000 ml @ 75 mls/hr IV . [id number] ONE Rx#:[id number] metroNIDAZOLE-NS PMX 500 100 mg In Saline 1 100ml.bag @ 100 mls/hr IVPB Q8HR [facility] Rx#:[id number] Oral 2020 Output: Drainage 140 100 170 Left Abdomen 140 100 170 Urine 600 550 620 Stool 620 120 400 Other: Voiding Method Indwelling Catheter Toilet Toilet # Voids 1 2 # Bowel Movements 1 1 - Exam Gen: This is an obese 23-year-old female. Patient is resting in bed, appears to be somewhat uncomfortable due to abdominal pain. Mother is at bedside. HEENT: Head is atraumatic, normocephalic. Pupils equal, round. Sclerae is anicteric. Conjunctiva pink. Extremities of the mouth are moist. No thrush noted. NECK: Supple. No JVD. No lymphadenopathy. No thyromegaly. LUNGS: Clear to auscultation. No wheezes or rhonchi. No intercostal retractions. Poor inspiratory effort secondary to pain. HEART: Regular rate and rhythm. No murmur. ABDOMEN: Soft. Bowel sounds are present. Mild abdominal distention. Diffuse tenderness. EXTREMITIES: No pedal edema. No calf tenderness. Dorsalis pedis +2 bilaterally. NEUROLOGICAL: Patient is awake, alert and oriented x3. - Labs CBC & Chem 7: 12/02/18 08:29 12/02/18 06:31 Labs: Abnormal Lab Results - Last 24 Hours (Table) 12/01/18 12/02/18 12/02/18 Range/Units 07:08 06:31 06:31 RBC 2.77 L (3.80-5.40) m/uL Hgb 7.9 L D (11.4-16.0) gm/dL Hct 24.1 L (34.0-46.0) % Lymphocytes # 0.8 L (1.0-4.8) k/uL Chloride 109 H (98-107) mmol/L BUN 6 L (7-17) mg/dL Creatinine 0.47 L (0.52-1.04) mg/dL Calcium 7.9 L (8.4-10.2) mg/dL Iron 18 L (50-170) ug/dL TIBC 224 L (228-460) ug/dL Iron Saturation 8.04 L (12.00-45.00) Total Protein 4.9 L (6.3-8.2) g/dL Albumin 2.5 L (3.5-5.0) g/dL 12/02/18 Range/Units 08:29 RBC 3.33 L (3.80-5.40) m/uL Hgb 9.5 L D (11.4-16.0) gm/dL Hct 28.7 L (34.0-46.0) % Lymphocytes # (1.0-4.8) k/uL Chloride (98-107) mmol/L BUN (7-17) mg/dL Creatinine (0.52-1.04) mg/dL Calcium (8.4-10.2) mg/dL Iron (50-170) ug/dL TIBC (228-460) ug/dL Iron Saturation (12.00-45.00) Total Protein (6.3-8.2) g/dL Albumin (3.5-5.0) g/dL Microbiology - Last 24 Hours (Table) 11/26/18 20:46 Blood Culture - Preliminary Blood No Growth after 120 hours 11/29/18 17:00 Gram Stain - Preliminary Aspirate Body Fluid Culture - Preliminary Escherichia coli 11/28/18 16:00 Blood Culture - Preliminary Blood No Growth after 72 hours Laboratory Results WBC 6.7 k/uL (3.8-10.6) 12/02/18 08:29 RBC 3.33 m/uL (3.80-5.40) L 12/02/18 08:29 Hgb 9.5 gm/dL (11.4-16.0) L D 12/02/18 08:29 Hct 28.7 % (34.0-46.0) L 12/02/18 08:29 MCV 86.3 fL (80.0-100.0) 12/02/18 08:29 MCH 28.6 pg (25.0-35.0) 12/02/18 08:29 MCHC 33.1 g/dL (31.0-37.0) 12/02/18 08:29 RDW 14.0 % (11.5-15.5) 12/02/18 08:29 Plt Count 281 k/uL (150-450) 12/02/18 08:29 Neutrophils % 76 % 12/02/18 06:31 Lymphocytes % 14 % 12/02/18 06:31 Monocytes % 5 % 12/02/18 06:31 Eosinophils % 4 % 12/02/18 06:31 Basophils % 1 % 12/02/18 06:31 Neutrophils # 4.4 k/uL (1.3-7.7) 12/02/18 06:31 Lymphocytes # 0.8 k/uL (1.0-4.8) L 12/02/18 06:31 Monocytes # 0.3 k/uL (0-1.0) 12/02/18 06:31 Eosinophils # 0.2 k/uL (0-0.7) 12/02/18 06:31 Basophils # 0.0 k/uL (0-0.2) 12/02/18 06:31 PT 10.4 sec (9.0-12.0) 11/26/18 20:46 INR 1.0 (<1.2) 11/26/18 20:46 APTT 26.1 sec (22.0-30.0) 11/26/18 20:46 Sodium 138 mmol/L (137-145) 12/02/18 06:31 Potassium 3.5 mmol/L (3.5-5.1) 12/02/18 06:31 Chloride 109 mmol/L (98-107) H 12/02/18 06:31 Carbon Dioxide 22 mmol/L (22-30) 12/02/18 06:31 Anion Gap 7 mmol/L 12/02/18 06:31 BUN 6 mg/dL (7-17) L 12/02/18 06:31 Creatinine 0.47 mg/dL (0.52-1.04) L 12/02/18 06:31 Est GFR (CKD-EPI)AfAm >90 (>60 ml/min/1.73 sqM) 12/02/18 06:31 Est GFR (CKD-EPI)NonAf >90 (>60 ml/min/1.73 sqM) 12/02/18 06:31 Glucose 89 mg/dL (74-99) 12/02/18 06:31 Plasma Lactic Acid Willian <0.5 mmol/L (0.7-2.0) L 11/30/18 04:18 Calcium 7.9 mg/dL (8.4-10.2) L 12/02/18 06:31 Magnesium 1.6 mg/dL (1.6-2.3) 11/30/18 04:18 Iron 18 ug/dL (50-170) L 12/01/18 07:08 TIBC 224 ug/dL (228-460) L 12/01/18 07:08 Iron Saturation 8.04 (12.00-45.00) L 12/01/18 07:08 Ferritin 163.3 ng/mL (10.0-291.0) 12/01/18 07:08 Total Bilirubin 0.2 mg/dL (0.2-1.3) 12/02/18 06:31 AST 16 U/L (14-36) 12/02/18 06:31 ALT 15 U/L (9-52) 12/02/18 06:31 Alkaline Phosphatase 50 U/L (38-126) 12/02/18 06:31 Total Protein 4.9 g/dL (6.3-8.2) L 12/02/18 06:31 Albumin 2.5 g/dL (3.5-5.0) L 12/02/18 06:31 HCG, Qual Not Detected 11/28/18 17:02 HCG, Quant <2.4 mIU/mL 11/28/18 17:02 Urine Color Yellow 11/26/18 21:00 Urine Appearance Clear (Clear) 11/26/18 21:00 Urine pH 6.0 (5.0-8.0) 11/26/18 21:00 Ur Specific [place] 1.023 (1.001-1.035) 11/26/18 21:00 Urine Protein Trace (Negative) H 11/26/18 21:00 Urine Glucose (UA) Negative (Negative) 11/26/18 21:00 Urine Ketones 4+ (Negative) H 11/26/18 21:00 Urine Blood Moderate (Negative) H 11/26/18 21:00 Urine Nitrite Negative (Negative) 11/26/18 21:00 Urine Bilirubin Negative (Negative) 11/26/18 21:00 Urine Urobilinogen <2.0 mg/dL (<2.0) 11/26/18 21:00 Ur Leukocyte Esterase Small (Negative) H 11/26/18 21:00 Urine RBC 10 /hpf (0-5) H 11/26/18 21:00 Urine WBC 1 /hpf (0-5) 11/26/18 21:00 Ur Squamous Epith Cells <1 /hpf (0-4) 11/26/18 21:00 Urine Mucus Rare /hpf (None) H 11/26/18 21:00 Urine HCG, Qual Not Detected (Not Detectd) 11/26/18 21:00 Treponema pallidum Ab Non-Reactive (Non-Reactive) 11/30/18 04:18 Chlamydia Source Vagina 11/26/18 22:06 Chlamydia DNA (PCR) Negative (Neg,Equiv) 11/26/18 22:06 C. difficile (EIA) Intrp Negative (Negative) 11/29/18 14:00 HIV-1 Antibody Non-Reactive (Non-Reactive) 11/30/18 04:18 HIV Ag/Ab Interpret 11/30/18 04:18 HIV p24 Antibody Non-Reactive (Non-Reactive) 11/30/18 04:18 HIV-2 Antibody Non-Reactive (Non-Reactive) 11/30/18 04:18 HIV P24 Antigen Non-Reactive (Non-Reactive) 11/30/18 04:18 N. gonorrhoeae Source Vagina 11/26/18 22:06 N.gonorrhoeae DNA Probe Negative (Neg,Equiv) 11/26/18 22:06 Trichomonas Ag (Rapid) Negative (Negative) 11/26/18 22:06 Microbiology 11/26/18 20:46 Blood Blood Culture - Preliminary No Growth after 120 hours 11/29/18 17:00 Aspirate Gram Stain - Preliminary 11/29/18 17:00 Aspirate Body Fluid Culture - Preliminary Escherichia coli 11/28/18 16:00 Blood Blood Culture - Preliminary No Growth after 72 hours 11/26/18 21:00 Urine,Voided Urine Culture - Final Assessment and Plan (1) Tubo-ovarian abscess Narrative/Plan: This pleasant 23-year-old woman was ill for approximately a week before she presented for care. It is tender and has evidence of the extensive intra- abdominal infection related to the tubo-ovarian abscess. Been taken in the operating room and the right salpingostomy was performed as well as abdominal lavage and lysis of adhesions. The patient has not had this discomfort in the past. Pathology is pending. Antibiotic therapy with ampicillin sulbactam and doxycycline are recommended. Also per guidelines HIV testing and RPR will be requested. When she has improved should be able to transition to oral antibiotic therapy at discharge. 11/30/2018 the patient had a difficult night with 103.5 fever occurring after surgery likely based on significant cytokine response. Feeling considerably better today and stable to ingest a small amount of food and her pain is improving. She is not having fever through the day today. She is hemodynamically stable and her oxygenation has stabilized. At this time she is on appropriate antibiotic therapy with Unasyn and doxycycline. Wound culture showing evidence of gram-negative bacilli which would be expected. This will help direct the course of antibiotic therapy at the time of the discharge in the next few days as she stabilizes. Fortunately HIV, syphilis and STD testing are all negative. 12/01/2018 the patient is still feeling somewhat poorly. She's had some low- grade fever and still feels somewhat ill. It is [place] continue to await the final cultures and will adjust antibiotics as indicated. As an addendum cultures have now become available and the E. coli that isolate is resistant to Unasyn as well as doxycycline. Consequently antibiotic therapy is altered to Rocephin and metronidazole. She is improved and ready for discharge to home cefuroxime and metronidazole will be utilized orally to complete her course of therapy. 12/02/2018 the patient is now feeling considerably better. The cultures became available and consequently the antibiotic therapy was altered to Rocephin and metronidazole. With this regimen she is not feeling considerably better. When she is ready for discharge to home we'll then plan on cefuroxime 500 mg every 12 hours and Flagyl 500 mg orally every 8 hours. We will assist her dietary desires by adding the [place] based products. Current Visit: Yes Status: Acute Code(s): N70.93 - SALPINGITIS AND O OPHORITIS, UNSPECIFIED SNOMED Code(s): 55491680
--- NOTE | 2018-12-02 15:30 | P.PN ---
Subjective Progress Note Date: 12/02/18 Principal diagnosis: abdominal pain Patient is a 23 -year-old female with no known past medical history who presented to the ER with complaints of right lower quadrant pain. In the ER she underwent an extensive evaluation. She initially was seen at urgent care and was sent into the ER for ketone area. Her vital signs within normal limits. Laboratory analysis showed an elevated white blood cell count 13.3, CO2 of 20, urinalysis showed ketones with moderate blood and small leukocyte esterase. She underwent a transvaginal ultrasound showed a large cystic area that she shouldn't to the left ovary with septations and unremarkable right adnexa. CT abdomen and pelvis which showed mild free fluid within the pelvis as well as a dilated tubular structure in the right adnexa. She was started on IV antibiotics and IV fluids. She was admitted for further monitoring and care. She was seen by [facility] who felt she likely had pelvic inflammatory disease and recommended antibiotics and repeat ultrasound in 6 weeks. Initial chlamydia, Trichomonas and gonorrhea came back negative. On 11/28 she started spiking persistent fevers and had increased lower abdominal pain with peritoneal signs. Surgery was consulted and felt that this was likely related to pelvic inf lammatory disease. KUB was repeated which was negative. She underwent a repeat CT of abdomen and pelvis which showed peritoneal fluid increasing inflammatory changes, and increasing right-sided fullness. She was taken to the operating room on 11/29 and found to have a right-sided tubular ovarian abscess with pelvic inflammatory disease. Cultures were obtained and came back e. coli. On the morning of 12/01 afebrile X 24 hours. She had significant nausea and vomiting after surgery. This improved by the morning of 12/02. She continued to have loose stools. Patient seen and examined at bedside. nausea and vomiting have resolved. Is going try increasing her diet today. Abdominal pain is getting much better and she continues to want to avoid narcotics. No chest pain or shortness of breath. Some lower extremity edema. Continues to have loose stools and frequent urination. Objective - Vital Signs Vital signs: Vital Signs Temp 98.0 F 12/02/18 07:36 Pulse 101 H 12/02/18 07:36 Resp 18 12/02/18 07:36 BP 132/70 12/02/18 07:36 Pulse Ox 96 12/02/18 07:36 Intake & Output 12/01/18 12/02/18 12/02/18 18:59 06:59 18:59 Intake Total 3310 Output Total 6857 240 7167 Balance -1360 -770 1920 Intake: Intake, IV Titration 750 Amount Sodium Chloride 0.45% 1, 500 000 ml @ 100 mls/hr IV . Q10H [facility] Rx#:[id number] Sodium Chloride 0.45% 1, 150 000 ml @ 75 mls/hr IV . [id number] Rx#:[id number] metroNIDAZOLE-NS PMX 500 100 mg In Saline 1 100ml.bag @ 100 mls/hr IVPB Q8HR [facility] Rx#:[id number] Oral 2560 Output: Drainage 140 100 170 Left Abdomen 140 100 170 Urine 600 550 820 Stool 620 120 400 Other: Voiding Method Indwelling Catheter Toilet Toilet # Voids 1 1 # Bowel Movements 1 1 - Exam General: Ill appearing, no distress, appears at stated age Derm: Pale, warm, dry Head: atraumatic, normocephalic, symmetric Eyes: EOMI, no lid lag, anicteric sclera Mouth: no lip lesion, mucus membranes dry Cardiovascular: S1S2 reg, no murmur, positive posterior tibial pulse bilateral, Lungs: CTA bilateral, no rhonchi, no rales , no accessory muscle use Abdominal: soft, + TTP RLQ and LLQ, no guarding, no appreciable organomegaly Ext: no gross muscle atrophy, 2+ edema, no contractures Neuro: CN II-XI grossly intact, no focal neuro deficits Psych: Alert, oriented, appropriate affect - Labs CBC & Chem 7: 12/02/18 08:29 12/02/18 06:31 Labs: Abnormal Lab Results - Last 24 Hours (Table) 12/01/18 12/02/18 12/02/18 Range/Units 07:08 06:31 06:31 RBC 2.77 L (3.80-5.40) m/uL Hgb 7.9 L D (11.4-16.0) gm/dL Hct 24.1 L (34.0-46.0) % Lymphocytes # 0.8 L (1.0-4.8) k/uL Chloride 109 H (98-107) mmol/L BUN 6 L (7-17) mg/dL Creatinine 0.47 L (0.52-1.04) mg/dL Calcium 7.9 L (8.4-10.2) mg/dL Iron 18 L (50-170) ug/dL TIBC 224 L (228-460) ug/dL Iron Saturation 8.04 L (12.00-45.00) Total Protein 4.9 L (6.3-8.2) g/dL Albumin 2.5 L (3.5-5.0) g/dL 12/02/18 Range/Units 08:29 RBC 3.33 L (3.80-5.40) m/uL Hgb 9.5 L D (11.4-16.0) gm/dL Hct 28.7 L (34.0-46.0) % Lymphocytes # (1.0-4.8) k/uL Chloride (98-107) mmol/L BUN (7-17) mg/dL Creatinine (0.52-1.04) mg/dL Calcium (8.4-10.2) mg/dL Iron (50-170) ug/dL TIBC (228-460) ug/dL Iron Saturation (12.00-45.00) Total Protein (6.3-8.2) g/dL Albumin (3.5-5.0) g/dL Microbiology - Last 24 Hours (Table) 11/26/18 20:46 Blood Culture - Preliminary Blood No Growth after 120 hours 11/29/18 17:00 Gram Stain - Preliminary Aspirate Body Fluid Culture - Preliminary Escherichia coli 11/28/18 16:00 Blood Culture - Preliminary Blood No Growth after 72 hours Assessment and Plan Assessment: E. Coli Tubelo-ovarian abscess with pelvic inflammatory disease and sepsis - s/p ex lap - ID recs appreciated - Gen surg/ [employer] recs appreciate -IV fluids completed -Blood culture negative -Chlamydia and Trichomonas negative, gonorrhea negative -Pain control, antibiotics - HIV and RPR negative Acute blood loss anemia - an anticipated outcome of surgery - Ferritin low normal - follow CBC Obesity with BMI 33.8 -Structured outpatient weight loss Ketonuria -The likely secondary to poor oral intake Hypokalemia, resolved Hyperchloremic metabolic acidosis, resolved DVT prophylaxis: early ambulation Discussed with: patient, nursing Anticipated discharge:1-[address]: home A total of 25 minutes was spent on the care of this complex patient more than 50% of the time was spent in counseling and care coordination.
[2018-12-02] MEDS: LACTOBACILLUS ACIDOPH & BULGAR 1 EACH PACKET PO SCH (17:26)
[2018-12-03 01:45] VITALS: RESP 18
[2018-12-03] MEDS: KETOROLAC 30 MG/ML 1 ML VIAL IVP SCH ×3 (02:51→16:21)
[2018-12-03 07:05] VITALS: BP 127/85; PULSE 97; TEMP 98
[2018-12-03] MEDS: LORATADINE 10 MG TAB PO SCH (08:24)
[2018-12-03] MEDS: PANTOPRAZOLE 40 MG TABLET PO SCH (08:24)
[2018-12-03] MEDS: metroNIDAZOLE-NS PMX 500 MG in SALINE 1 100ML.BAG IVPB SCH ×2 (08:25→16:21)
--- NOTE | 2018-12-03 10:07 | P.PN ---
Progress Note - Text Progress Note Date: 12/03/18 S/P Diagnostic laparoscopy, exploratory laparotomy with right salpingectomy and lysis of adhesions POD #4 Pt seen and examined at bedside. She did have a temp of 100.4 last night at 2100. I reminded her to use the Incentive Spirometer and she said she is using that and getting up frequently. HEr pain is well controlled. She is tolerating a regular diet and passing flatus. Her incision is C/D/I with ernestina. The YUE drain is still putting out a lot of a mix of serosanguinous and purulent fluid. A. 1. S/P Diagnostic laparoscopy, exploratory laparotomy with right salpingectomy and lysis of adhesions POD #4 P. 1. cont IV antibioitcs 2. when patient is ready for discharge please remove ernestina and place steri strips.
--- NOTE | 2018-12-03 11:09 | P.PN ---
Subjective Progress Note Date: 12/03/18 Principal diagnosis: Abdominal pain Patient doing well today. She would like to go home. T-max 100.4 last night. She has been afebrile since. YUE draining serous. Tolerating diet. Normal bowel function. Objective - Vital Signs Vital signs: Vital Signs Temp 98.0 F 12/03/18 07:00 Pulse 97 12/03/18 07:00 Resp 18 12/03/18 07:00 BP 127/85 12/03/18 07:00 Pulse Ox 97 12/03/18 07:00 Intake & Output 12/02/18 12/03/18 12/03/18 18:59 06:59 18:59 Intake Total 3310 Output Total 2130 230 345 Balance 1180 -230 -345 Intake: Intake, IV Titration 750 Amount Sodium Chloride 0.45% 1, 500 000 ml @ 100 mls/hr IV . Q10H [facility] Rx#:[id number] Sodium Chloride 0.45% 1, 150 000 ml @ 75 mls/hr IV . [id number] [facility] Rx#:[id number] metroNIDAZOLE-NS PMX 500 100 mg In Saline 1 100ml.bag @ 100 mls/hr IVPB Q8HR [facility] Rx#:[id number] Oral 2560 Output: Drainage 210 45 Left Abdomen 210 45 Urine 1220 150 300 Stool 700 80 Other: Voiding Method Toilet # Voids 1 # Bowel Movements 1 1 - Exam Abdomen: Soft, nondistended, incision clean and dry - Labs CBC & Chem 7: 12/02/18 08:29 12/02/18 06:31 Labs: Microbiology - Last 24 Hours (Table) 11/26/18 20:46 Blood Culture - Final Blood No Growth after 144 hours 11/28/18 16:00 Blood Culture - Preliminary Blood No Growth after 96 hours Assessment and Plan (1) PID (acute pelvic inflammatory disease) Narrative/Plan: Patient doing well at this time. Switch to oral antibiotics. Likely discharged today. Follow-up with gynecology post discharge. Current Visit: Yes Status: Acute Code(s): N73.0 - ACUTE PARAMETRITIS AND PELVIC CELLULITIS SNOMED Code(s): 641906095
[2018-12-03 11:22] VITALS: BMI 33.7
[2018-12-03] MEDS: LACTOBACILLUS ACIDOPH & BULGAR 1 EACH PACKET PO SCH (13:09)
--- NOTE | 2018-12-03 17:11 | P.DS ---
Providers Date of admission: 11/29/18 10:30 Expected date of discharge: 12/03/18 Attending physician: Raúl Miller MD Consults: 11/27/18 02:00 Consult Physician Routine Consulting Provider: Ubaldo Simon Consult Reason/Comments: tubo-ovarian asbscess Do you want consulting provider notified?: Yes 11/28/18 14:41 Consult Physician Routine Consulting Provider: Philip Mast Consult Reason/Comments: abdominal pain Do you want consulting provider notified?: Yes 11/29/18 06:48 Consult Physician Urgent Consulting Provider: Toño Serna Consult Reason/Comments: Persistent fevers, sepsis. Do you want consulting provider notified?: Yes Primary care physician: Mushtaq Whittaker Hospital Course: Discharge Diagnosis: Pelvic inflammatory disease with right sided tubelo- ovarian abscess due to E. coli Sepsis Acute blood loss anemia Obesity with BMI 33.8 Fluid retention Ketonuria Hyperkalemia Hyperchloremic metabolic acidosis Hospital Course: Patient is a 23 -year-old female with no known past medical history who presented to the ER with complaints of right lower quadrant pain. In the ER she underwent an extensive evaluation. She initially was seen at urgent care and was sent into the ER for ketone area. Her vital signs within normal limits. Laboratory analysis showed an elevated white blood cell count 13.3, CO2 of 20, urinalysis showed ketones with moderate blood and small leukocyte esterase. She underwent a transvaginal ultrasound showed a large cystic area that she shouldn't to the left ovary with septations and unremarkable right adnexa. CT abdomen and pelvis which showed mild free fluid within the pelvis as well as a dilated tubular structure in the right adnexa. She was started on IV antibiotics and IV fluids. She was admitted for further monitoring and care. She was seen by [facility] who felt she likely had pelvic inflammatory disease and recommended antibiotics and repeat ultrasound in 6 weeks. Initial chlamydia, Trichomonas and gonorrhea came back negative. On 11/28 she started spiking persistent fevers and had increased lower abdominal pain with peritoneal signs. Surgery was consulted and felt that this was likely related to pelvic inflammatory disease. KUB was repeated which was negative. She underwent a repeat CT of abdomen and pelvis which showed peritoneal fluid increasing inflammatory changes, and increasing right-sided fullness. She was taken to the operating room on 11/29 and found to have a right-sided tubular ovarian abscess with pelvic inflammatory disease. Cultures were obtained and came back e. coli. On the morning of 12/01 afebrile X 24 hours. She had significant nausea and vomiting after surgery. This improved by the morning of 12/02. She continued to have loose stools. She continued to well. Her pain improved. She is tolerating regular diet. Her incision was healing well. She does not have any additional significant fevers, she did have a fever of 100.41 but this was not reproduced. She was determined stable for discharge home. Per infectious disease recommendation she'll complete an additional 7 days of cefuraxime 500 mg every 12 hours and Flagyl 500 mg every 8 hours. She'll follow with Dr. Simon in 1-2 days. She will also see her family physician within the next 1-2 days. She was sent home with laparotomy instructions. She will use Motrin 600 mg as needed for pain and she was also provided with prescription for Protonix 40 mg daily while she requires Motrin therapy. Patient seen and examined at bedside. Pain is improved, and walking, not needing any pain medications at this point in time, tolerating diet, no nausea Vital signs reviewed and stable. General: non toxic, no distress, appears at stated age Derm: warm, dry Head: atraumatic, normocephalic, symmetric Eyes: EOMI, no lid lag, anicteric sclera Mouth: no lip lesion, mucus membranes moist Cardiovascular: S1S2 reg, no murmur, positive posterior tibial pulse bilateral, Lungs: CTA bilateral, no rhonchi, no rales , no accessory muscle use Abdominal: soft, nontender to palpation, no guarding, no appreciable organom egaly Ext: no gross muscle atrophy, trace edema], no contractures Neuro: CN II-XI grossly intact, no focal neuro deficits Psych: Alert, oriented, appropriate affect A total of 25 minutes of time were spent preparing this complex discharge summary . Procedures: 11/29-exploratory laparoscopy converted to exploratory laparotomy which discovered right-sided tubo-ovarian abscess, free pelvic fluid, and grossly inflamed pelvic area. Patient Condition at Discharge: Stable Plan - Discharge Summary Discharge Rx Participant: Yes New Discharge Prescriptions: New Cefuroxime [Ceftin] 500 mg PO BID #28 tablet metroNIDAZOLE [Flagyl] 500 mg PO TID #21 tab Ibuprofen [Motrin] 600 mg PO Q8HR PRN #30 tab PRN Reason: Pain Pantoprazole [Protonix] 40 mg PO AC-BRKFST #30 tablet. Furosemide [Lasix] 20 mg PO DAILY #3 tab Discharge Medication List Cefuroxime [Ceftin] 500 mg PO BID #28 tablet 12/03/18 [Rx] Furosemide [Lasix] 20 mg PO DAILY #3 tab 12/03/18 [Rx] Ibuprofen [Motrin] 600 mg PO Q8HR PRN #30 tab 12/03/18 [Rx] Pantoprazole [Protonix] 40 mg PO AC-BRKFST #30 tablet. 12/03/18 [Rx] metroNIDAZOLE [Flagyl] 500 mg PO TID #21 tab 12/03/18 [Rx] Follow up Appointment(s)/Referral(s): Ubaldo Simon MD [STAFF PHYSICIAN] - 1-2 days (office closed at time of discharge. Please call to make appointment) Mushtaq Whittaker MD [Primary Care Provider] - 1-2 days (office closed at time of discharge. PLease call to make appintment) Patient Instructions/Handouts: Pelvic Inflammatory Disease (ED), Exploratory Laparotomy (DC) Activity/Diet/Wound Care/Special Instructions: Activity: as tolerated Diet: regular Wound Care: Leave steri-strips in place, keep wound clean and dry. Special Instructions: please take antibiotic as directed. Please follow-up with [facility] in one to 2 days. Please return to the emergency department if you have any worsening symptoms. Discharge Disposition: HOME SELF-CARE
== END 2018-12-03 17:35 | disposition home or self-care (01) | DRG 853 ==
LOC: EC 20:22 → 6PED 11-27 01:40 → OBSVTOIN 11-29 10:30 → 4SSUR 11-29 19:30
PROVIDERS: ADMIT Internal Medicine; ATTEND Internal Medicine
PROC: 0DNW4ZZ Release Peritoneum, Percutaneous Endoscopic Approach (ICD-10-PCS; principal; 2018-11-29 16:05)
PROC: 0UT50ZZ Resection of Right Fallopian Tube, Open Approach (ICD-10-PCS; 2018-11-29 16:05)
PROC: 0D9W0ZX Drainage of Peritoneum, Open Approach, Diagnostic (ICD-10-PCS; 2018-11-29 16:05)
DX: A41.9 Sepsis, unspecified organism (principal); K65.9 Peritonitis, unspecified; N73.0 Acute parametritis and pelvic cellulitis; N70.03 Acute salpingitis and oophoritis; E87.2 Acidosis; D62 Acute posthemorrhagic anemia; K59.00 Constipation, unspecified; K66.0 Peritoneal adhesions (postprocedural) (postinfection); E87.6 Hypokalemia; E87.5 Hyperkalemia; E66.9 Obesity, unspecified; B96.20 Unspecified Escherichia coli [E. coli] as the cause of diseases classified elsewhere; R82.4 Acetonuria; N83.00 Follicular cyst of ovary, unspecified side; Z90.49 Acquired absence of other specified parts of digestive tract; Z53.31 Laparoscopic surgical procedure converted to open procedure; Z83.3 Family history of diabetes mellitus; Z68.33 Body mass index [BMI] 33.0-33.9, adult
CPT/HCPCS: 36415; 74022; 74177; 76830; 80048; 80053; 81001; 81025; 82728; 83540; 83550; 83605; 83735; 84702; 84703; 85025; 85027; 85610; 85730; 86780; 87040; 87070; 87077; 87086; 87186; 87205; 87324; 87390; 87491; 87591; 87808; 88108; 88305; 93975; 96361; 96374; 99285

== ENCOUNTER 2020-02-16 12:25 | Emergency (ER) | payer BC ==
[2020-02-16 12:34] VITALS: TEMP 98.9
[2020-02-16] MEDS ORDERED: HYDROmorphone 0.5 MG/0.5 ML SYRINGE IVP STA (13:48)
[2020-02-16] MEDS ORDERED: KETOROLAC 15 MG/ML 1 ML VIAL IVP STA (13:48)
[2020-02-16] MEDS ORDERED: SODIUM CHLORIDE 0.9% 1,000 ML IV STA (13:48)
[2020-02-16] MEDS ORDERED: ONDANSETRON 4 MG/2 ML VIAL IVP STA (13:48)
--- NOTE | 2020-02-16 14:00 | ED ---
Abdominal Pain HPI - General Chief Complaint: Abdominal Pain Stated Complaint: abd pain Time Seen by Provider: 02/16/20 13:37 Source: patient Mode of arrival: ambulatory Limitations: no limitations - History of Present Illness Initial Comments: 24 year-old female patient presents to the emergency department today for evaluation of right flank pain. Patient states the pain started on and has been intermittent since. States over the last 24 hours the pain has been constant and worsening. States that she has some general upper abdominal pain and then pain mostly over the right flank. She states she does have urinary frequency but this is not unusual for her. Denies any hematuria or dysuria. Denies any fever or chills. Does report nausea and vomiting. Denies any constipation or diarrhea. Denies history of kidney stone. She has had appendectomy and right salpingectomy from infection in the past. Patient denies any recent rash, cough, shortness of breath, chest pain, numbness, tingling, dizziness, weakness, headache, visual changes, or any other complaints. - Related Data Previous Rx's Medication Instructions Recorded Cefuroxime [Ceftin] 500 mg PO BID #28 tablet 12/03/18 Furosemide [Lasix] 20 mg PO DAILY #3 tab 12/03/18 Ibuprofen [Motrin] 600 mg PO Q8HR PRN #30 tab 12/03/18 Pantoprazole [Protonix] 40 mg PO AC-BRKFST #30 tablet. 12/03/18 metroNIDAZOLE [Flagyl] 500 mg PO TID #21 tab 12/03/18 Cephalexin [Keflex] 500 mg PO Q6H #28 cap 02/16/20 Hydrocodone/Acetaminophen [[place] 1 tab PO Q6HR PRN #12 tab 02/16/20 5-325] Ibuprofen [Motrin] 600 mg PO Q8HR PRN #30 tab 02/16/20 Ondansetron [Zofran ODT] 4 mg PO Q8HR PRN #15 tab 02/16/20 Tamsulosin HCl [Flomax] 0.4 mg PO DAILY #7 cap 02/16/20 Allergies Allergy/AdvReac Type Severity Reaction Status Date / Time No Known Allergies Allergy Verified 02/16/20 12:34 Review of Systems ROS Statement: Those systems with pertinent positive or pertinent negative responses have been documented in the HPI. ROS Other: All systems not noted in ROS Statement are negative. Past Medical History Past Medical History: No Reported History History of Any Multi-Drug Resistant Organisms: None Reported Past Surgical History: Appendectomy Additional Past Surgical History / Comment(s): Breast reductive surgery, rt fallopian tube Past Psychological History: No Psychological Hx Reported Smoking Status: Never smoker Past Alcohol Use History: Occasional Past Drug Use History: None Reported - Past Family History Mother Family Medical History: Diabetes Mellitus Additional Family Medical History / Comment(s): Gestational DM General Exam Limitations: no limitations General appearance: alert, in no apparent distress, other (This is a well- developed, well-nourished adult female patient in no acute distress. Vital signs upon presentation are temperature 98.9F, pulse 89, respirations 20, blood pressure 131/81, pulse ox 99% on room air.) Respiratory exam: Present: normal lung sounds bilaterally. Absent: respiratory distress, wheezes, rales, rhonchi, stridor Cardiovascular Exam: Present: regular rate, normal rhythm, normal heart sounds. Absent: systolic murmur, diastolic murmur, rubs, gallop, clicks GI/Abdominal exam: Present: soft, tenderness (Mild upper), normal bowel sounds. Absent: distended, guarding, rebound, rigid Back exam: Present: normal inspection, CVA tenderness (R). Absent: CVA tenderness (L) Neurological exam: Present: alert, oriented X3, CN II-XII intact Psychiatric exam: Present: normal affect, normal mood Skin exam: Present: warm, dry, intact, normal color. Absent: rash Course Vital Signs 02/16/20 02/16/20 02/16/20 12:32 13:33 14:33 Temperature 98.9 F Pulse Rate 89 Respiratory 20 18 18 Rate Blood Pressure 131/81 O2 Sat by Pulse 99 Oximetry 02/16/20 16:04 Temperature 98.9 F Pulse Rate 71 Respiratory 18 Rate Blood Pressure 127/77 O2 Sat by Pulse 100 Oximetry Medical Decision Making - Medical Decision Making 24 year-old female patient presents to the emergency department today for kenzie luation of right flank pain, nausea, vomiting. Physical examination did reveal right CVA tenderness. Mild upper abdominal tenderness. Labs reviewed did reveal white blood cell count at 13.6, neutrophils 11.8. Urinalysis showed trace ketones, moderate blood, 23 red blood cells, rare bacteria, moderate mucus. HCG is negative. CT abdomen and pelvis without contrast was obtained for possible kidney stone. Exam showed evidence for a 5 mm obstructing stone in the right UPJ. There is also bacteria and urine still start Keflex. Will give Flomax. Pain management will be provided. She is instructed follow up with urologist for further evaluation as soon as possible. Return parameters were discussed in detail. She verbalizes understanding and agrees with this plan. - Lab Data Result diagrams: 02/16/20 14:34 02/16/20 14:34 Lab Results 02/16/20 02/16/20 02/16/20 Range/Units 14:34 14:34 14:34 WBC 13.6 H (3.8-10.6) k/uL RBC 4.97 (3.80-5.40) m/uL Hgb 14.3 (11.4-16.0) gm/dL Hct 43.8 (34.0-46.0) % MCV 88.0 (80.0-100.0) fL MCH 28.8 (25.0-35.0) pg MCHC 32.7 (31.0-37.0) g/dL RDW 12.8 (11.5-15.5) % Plt Count 267 (150-450) k/uL MPV 6.9 Neutrophils % 87 % Lymphocytes % 8 % Monocytes % 4 % Eosinophils % 1 % Basophils % 0 % Neutrophils # 11.8 H (1.3-7.7) k/uL Lymphocytes # 1.1 (1.0-4.8) k/uL Monocytes # 0.5 (0-1.0) k/uL Eosinophils # 0.1 (0-0.7) k/uL Basophils # 0.0 (0-0.2) k/uL Sodium (137-145) mmol/L Potassium (3.5-5.1) mmol/L Chloride (98-107) mmol/L Carbon Dioxide (22-30) mmol/L Anion Gap mmol/L BUN (7-17) mg/dL Creatinine (0.52-1.04) mg/dL Est GFR (CKD-EPI)AfAm (>60 ml/min/1.73 sqM) Est GFR (CKD-EPI)NonAf (>60 ml/min/1.73 sqM) Glucose (74-99) mg/dL Calcium (8.4-10.2) mg/dL Total Bilirubin (0.2-1.3) mg/dL AST (14-36) U/L ALT (4-34) U/L Alkaline Phosphatase (38-126) U/L Total Protein (6.3-8.2) g/dL Albumin (3.5-5.0) g/dL Lipase (23-300) U/L Urine Color Yellow Urine Appearance Clear (Clear) Urine pH 7.0 (5.0-8.0) Ur Specific [place] 1.016 (1.001-1.035) Urine Protein Negative (Negative) Urine Glucose (UA) Negative (Negative) Urine Ketones Trace H (Negative) Urine Blood Moderate H (Negative) Urine Nitrite Negative (Negative) Urine Bilirubin Negative (Negative) Urine Urobilinogen <2.0 (<2.0) mg/dL Ur Leukocyte Esterase Negative (Negative) Urine RBC 23 H (0-5) /hpf Urine WBC 2 (0-5) /hpf Ur Squamous Epith Cells 4 (0-4) /hpf Urine Bacteria Rare H (None) /hpf Hyaline Casts 1 (0-2) /lpf Urine Mucus Moderate H (None) /hpf Urine HCG, Qual Not Detected (Not Detectd) 02/16/20 Range/Units 14:34 WBC (3.8-10.6) k/uL RBC (3.80-5.40) m/uL Hgb (11.4-16.0) gm/dL Hct (34.0-46.0) % MCV (80.0-100.0) fL MCH (25.0-35.0) pg MCHC (31.0-37.0) g/dL RDW (11.5-15.5) % Plt Count (150-450) k/uL MPV Neutrophils % % Lymphocytes % % Monocytes % % Eosinophils % % Basophils % % Neutrophils # (1.3-7.7) k/uL Lymphocytes # (1.0-4.8) k/uL Monocytes # (0-1.0) k/uL Eosinophils # (0-0.7) k/uL Basophils # (0-0.2) k/uL Sodium 140 (137-145) mmol/L Potassium 4.4 (3.5-5.1) mmol/L Chloride 107 (98-107) mmol/L Carbon Dioxide 24 (22-30) mmol/L Anion Gap 9 mmol/L BUN 16 (7-17) mg/dL Creatinine 0.78 (0.52-1.04) mg/dL Est GFR (CKD-EPI)AfAm >90 (>60 ml/min/1.73 sqM) Est GFR (CKD-EPI)NonAf >90 (>60 ml/min/1.73 sqM) Glucose 100 H (74-99) mg/dL Calcium 9.8 (8.4-10.2) mg/dL Total Bilirubin 0.6 (0.2-1.3) mg/dL AST 25 (14-36) U/L ALT 20 (4-34) U/L Alkaline Phosphatase 75 (38-126) U/L Total Protein 7.8 (6.3-8.2) g/dL Albumin 4.8 (3.5-5.0) g/dL Lipase 84 (23-300) U/L Urine Color Urine Appearance (Clear) Urine pH (5.0-8.0) Ur Specific [place] (1.001-1.035) Urine Protein (Negative) Urine Glucose (UA) (Negative) Urine Ketones (Negative) Urine Blood (Negative) Urine Nitrite (Negative) Urine Bilirubin (Negative) Urine Urobilinogen (<2.0) mg/dL Ur Leukocyte Esterase (Negative) Urine RBC (0-5) /hpf Urine WBC (0-5) /hpf Ur Squamous Epith Cells (0-4) /hpf Urine Bacteria (None) /hpf Hyaline Casts (0-2) /lpf Urine Mucus (None) /hpf Urine HCG, Qual (Not Detectd) - Radiology Data Radiology results: report reviewed, image reviewed CT abdomen and pelvis is obtained. Report was reviewed in its entirety. Impression by Dr. Major shows obstructing calculus at the right uteropelvic junction with right-sided hydronephrosis. Tiny right renal calculi. Not instructing left renal calculus is increased in size compared to old exam. Right renal obstruction is new compared to old exam. There is clearing of the inflammatory changes in the pelvis and fluid and the basilar pulmonary infiltrates compared to old exam Disposition Clinical Impression: Kidney stone on right side Disposition: HOME SELF-CARE Condition: Good Instructions (If sedation given, give patient instructions): Kidney Stones (ED) Additional Instructions: Take medications as directed. Increase fluids. Follow-up with urology for further evaluation as soon as possible. Return to the emergency department immediately for any new, worsening, or concerning symptoms. Prescriptions: Tamsulosin HCl [Flomax] 0.4 mg PO DAILY #7 cap Cephalexin [Keflex] 500 mg PO Q6H #28 cap Ibuprofen [Motrin] 600 mg PO Q8HR PRN #30 tab PRN Reason: Pain Hydrocodone/Acetaminophen [[place] 5-325] 1 tab PO Q6HR PRN #12 tab PRN Reason: Pain Ondansetron [Zofran ODT] 4 mg PO Q8HR PRN #15 tab PRN Reason: Nausea Is patient prescribed a controlled substance at d/c from ED?: Yes When asked, does pt state using other controlled substances?: No If prescribed controlled substance>3 days was MAPS reviewed?: Prescribed <3 Days If opioid is for acute pain is fill amount 7 days or less?: Yes If Rx opioid, was Start Talking consent form obtained?: Yes Referrals: Carmen Yu MD [Primary Care Provider] - 1-2 days Wolf Bridges MD [STAFF PHYSICIAN] - 1-2 days Time of Disposition: 15:37
[2020-02-16 14:46] LABS: Basophils % (A) 0 %; Eosinophils # (A) 0.1 k/uL (0-0.7); Eosinophils % (A) 1 %; HCT 43.8 % (34.0-46.0); HGB 14.3 gm/dL (11.4-16.0); Lymphocytes # (A) 1.1 k/uL (1.0-4.8); Lymphocytes % (A) 8 %; MCH 28.8 pg (25.0-35.0); MCHC 32.7 g/dL (31.0-37.0); Mean Platelet Volume 6.9; Monocytes # (A) 0.5 k/uL (0-1.0); Monocytes % (A) 4 %; Neutrophils # (A) 11.8 k/uL (1.3-7.7); Neutrophils % (A) 87 %; Platelet Count 267 k/uL (150-450); RBC 4.97 m/uL (3.80-5.40); RDW 12.8 % (11.5-15.5); WBC 13.6 k/uL (3.8-10.6)
[2020-02-16 14:48] LABS: Appearance,Urine Clear (Clear); Bacteria,Urine Rare /hpf; Bilirubin,Urine Negative (Negative); Blood,Urine Moderate (Negative); Color,Urine Yellow; Glucose,Urine (UA) Negative (Negative); Hyaline Casts,Urine 1 /lpf (0-2); Ketones,Urine Trace (Negative); Leukocyte Esterase,Urine Negative (Negative); Mucus,Urine Moderate /hpf; Nitrite,Urine Negative (Negative); Protein,Urine Negative (Negative); RBC,Urine 23 /hpf (0-5); Specific Gravity,Urine 1.016 (1.001-1.035); Squamous Epithelial Cell,Urine 4 /hpf (0-4); Urobilinogen,Urine <2.0 mg/dL (<2.0); WBC,Urine 2 /hpf (0-5)
[2020-02-16 15:02] LABS: ALT 20 U/L (4-34); AST 25 U/L (14-36); African American GFR (CKD) >90 (>60 ml/min/1.73 sqM); Albumin 4.8 g/dL (3.5-5.0); Alkaline Phosphatase 75 U/L (38-126); Anion Gap 9 mmol/L; Blood Urea Nitrogen 16 mg/dL (7-17); Calcium 9.8 mg/dL (8.4-10.2); Carbon Dioxide 24 mmol/L (22-30); Chloride 107 mmol/L (98-107); Glucose 100 mg/dL (74-99); Lipase 84 U/L (23-300); Non-African American GFR(CKD) >90 (>60 ml/min/1.73 sqM); Potassium 4.4 mmol/L (3.5-5.1); Sodium 140 mmol/L (137-145); Total Bilirubin 0.6 mg/dL (0.2-1.3); Total Protein 7.8 g/dL (6.3-8.2)
--- NOTE | 2020-02-16 15:19 | CT ---
EXAMINATION TYPE: CT abdomen pelvis wo con DATE OF EXAM: 02/16/2020 COMPARISON: 11/28/2018 HISTORY: Right sided flank and lower abdominal pain. CT DLP: 1025.4 mGycm Automated exposure control for dose reduction was used. Images obtained from the diaphragm to the floor the pelvis with no contrast. Lung bases are clear. There is no pleural effusion. Heart size is normal. There is no pericardial ef fusion. Liver is intact. Gallbladder is intact. The bile ducts are not dilated. Stomach is intact. Th ere is no pancreatic mass. There are small hypodense foci in a somewhat linear distribution in the sp naveen unchanged compared to old exam and could relate to old trauma. There is no adrenal mass. Kidneys have normal size. There is right-sided hydronephrosis with obstruct ing 5 mm calculus at the ureteropelvic junction. There are 1 mm calculi in the right kidney. There is 5 mm calculus in the interpolar left kidney. There is no left-sided hydronephrosis. Bladder distends smoothly. There is no inguinal hernia. There is no free fluid in the pelvis. Uterus is retroverted. There is no free fluid in the pelvis. There is no mesenteric edema. There is no ascites or free air. There is no bowel obstruction. Appendi x is not seen. There is no evidence of a thickened appendix. Lumbar vertebra have normal alignment. Posterior elements are intact. Bony pelvis is intact. Hip join ts are intact. IMPRESSION: Obstructing calculus at the right ureteropelvic junction with right-sided hydronephrosis. Tiny right renal calculi. Nonobstructing left renal calculus is increased in size compared to old exam. Right re nal obstruction is new compared to old exam. There is clearing of the inflammatory changes in the pelvis and fluid and the basilar pulmonary infil trates compared to old exam.
[2020-02-16] MEDS ORDERED: TAMSULOSIN 0.4 MG CAP.ER.24H PO STA (15:20)
[2020-02-16 15:21] VITALS: RESP 18
[2020-02-16 16:04] VITALS: BP 127/77; PULSE 71
== END 2020-02-16 16:09 | disposition home or self-care (01) ==
LOC: EC 12:25
DX: N13.2 Hydronephrosis with renal and ureteral calculous obstruction (principal)
CPT/HCPCS: 36415; 80053; 83690; 85025; 81001; 81025; 74176; 99284; 96374; 96375 ×2; 96361; J2405; J1885; J1170

== ENCOUNTER → 2020-04-03 | Outpatient (CLI) | payer BC ==
--- NOTE | 2020-04-03 13:02 | US ---
EXAMINATION TYPE: US kidneys/renal and bladder DATE OF EXAM: 04/03/2020 COMPARISON: CT 02/16/2020 CLINICAL HISTORY: N31.2 RT HYDRONEPHROSIS. EXAM MEASUREMENTS: Right Kidney: 12.9 x 5.7 x 5.9 cm Left Kidney: 11.0 x 5.6 x 5.2 cm Right Kidney: No hydronephrosis or masses seen Left Kidney: No hydronephrosis. Non-obstructing echogenic foci measuring 0.7 cm Bladder: wnl Bilateral Jets seen: Yes IMPRESSION: 0.7 cm left renal stone without obstruction
== END | disposition home or self-care (01) ==
LOC: RADUSWWP 10:35
PROVIDERS: ATTEND Urology
DX: N20.0 Calculus of kidney (principal)
CPT/HCPCS: 76770

== ENCOUNTER → 2020-04-23 | Outpatient (CLI) | payer BC ==
--- NOTE | 2020-04-23 16:14 | XR ---
Abdomen HISTORY: Calculus of ureter, bilateral kidney stones Frontal view of the abdomen on [address] scan 02/16/2020 There is overlying foreign body present. There is calcification at the level the midpole the left kid levy measuring approximately 6 mm. Calcification seen at the level of the proximal right ureter on talat or CT is not seen definitively on today's exam. Lung bases are not included on exam. Bone mineralizat ion is normal. IMPRESSION: Left nephrolithiasis. Right ureteral calculus not identified with certainty.
== END | disposition home or self-care (01) ==
LOC: RADXRMAIN 13:34
PROVIDERS: ATTEND Urology
DX: N20.2 Calculus of kidney with calculus of ureter (principal)
CPT/HCPCS: 74018

== ENCOUNTER → 2021-10-19 | Outpatient (CLI) | payer BC ==
--- NOTE | 2021-10-19 12:23 | XR ---
EXAMINATION TYPE: XR KUB DATE OF EXAM: 10/19/2021 12:13 PM CLINICAL HISTORY: Blood in urine and back pain, history of bilateral stones. TECHNIQUE: Supine KUB image of the abdomen is obtained with 2 radiographs. COMPARISON: None available FINDINGS: Scattered gas is seen in non-distended small bowel loops. Gas and fecal material is seen in non-distended colon. 6 mm calculus demonstrated in the region of the mid left kidney. No gross evide nce of pneumoperitoneum on this supine exam. No acute osseous abnormality. IMPRESSION: Overall nonobstructive bowel gas pattern. 6 mm calculus demonstrated in the region of the mid left kidney.
== END ==
LOC: RADXRMAIN 11:59
PROVIDERS: ATTEND Urology
DX: N20.0 Calculus of kidney (principal)
CPT/HCPCS: 74018

== ENCOUNTER 2021-10-20 07:53 | Emergency (ER) | payer BC ==
[2021-10-20 07:58] VITALS: BP 136/85; PULSE 94; RESP 18; TEMP 97.8
[2021-10-20 08:27] LABS: Appearance,Urine Clear (Clear); Bilirubin,Urine Negative (Negative); Blood,Urine Large (Negative); Color,Urine Light Yellow; Glucose,Urine (UA) Negative (Negative); Ketones,Urine Negative (Negative); Leukocyte Esterase,Urine Large (Negative); Nitrite,Urine Negative (Negative); PH, Urine 7.5 (5.0-8.0); Protein,Urine Negative (Negative); RBC,Urine 57 /hpf (0-5); Specific Gravity,Urine 1.007 (1.001-1.035); Squamous Epithelial Cell,Urine <1 /hpf (0-4); Urobilinogen,Urine <2.0 mg/dL (<2.0); WBC,Urine 105 /hpf (0-5)
[2021-10-20] MEDS ORDERED: ONDANSETRON 4 MG/2 ML VIAL IVP STA (08:50)
[2021-10-20] MEDS ORDERED: KETOROLAC 15 MG/ML 1 ML VIAL IVP STA (08:50)
[2021-10-20 08:59] LABS: Basophils % (A) 0 %; Eosinophils # (A) 0.2 k/uL (0-0.7); Eosinophils % (A) 2 %; HCT 40.1 % (34.0-46.0); HGB 13.1 gm/dL (11.4-16.0); Lymphocytes # (A) 1.7 k/uL (1.0-4.8); Lymphocytes % (A) 16 %; MCH 29.1 pg (25.0-35.0); MCHC 32.6 g/dL (31.0-37.0); MCV 89.2 fL (80.0-100.0); Mean Platelet Volume 7.6; Monocytes # (A) 0.5 k/uL (0-1.0); Monocytes % (A) 5 %; Neutrophils # (A) 8.4 k/uL (1.3-7.7); Neutrophils % (A) 77 %; Platelet Count 247 k/uL (150-450); RDW 12.8 % (11.5-15.5); WBC 10.9 k/uL (3.8-10.6)
--- NOTE | 2021-10-20 09:08 | ED ---
General Adult HPI - General Chief complaint: Back Pain/Injury Stated complaint: possible kidney stones Time Seen by Provider: 10/20/21 08:40 Source: patient Mode of arrival: ambulatory Limitations: no limitations - History of Present Illness Initial comments: 26-year-old female with past medical history of tubo-ovarian abscess on the right, nephrolithiasis presents to the emergency department with left-sided flank pain. Patient has had the pain for several days. She does have a history of kidney stones and states that her pain feels the same as when she had her previous kidney stones. She has had some hematuria. Woke this morning and had a significant amount. Continues to be able to urinate without difficulty. Has some burning in the urethra. Patient currently on her menstrual cycle. Denies any vaginal discharge. No issues with her bowel habits. No concern for . Is taking Motrin at home for pain. No other alleviating, pre cipitating or modifying factors - Related Data Previous Rx's Medication Instructions Recorded Cefuroxime [Ceftin] 500 mg PO BID #28 tablet 12/03/18 Furosemide [Lasix] 20 mg PO DAILY #3 tab 12/03/18 Ibuprofen [Motrin] 600 mg PO Q8HR PRN #30 tab 12/03/18 Pantoprazole [Protonix] 40 mg PO AC-BRKFST #30 tablet. 12/03/18 metroNIDAZOLE [Flagyl] 500 mg PO TID #21 tab 12/03/18 Cephalexin [Keflex] 500 mg PO Q6H #28 cap 02/16/20 Hydrocodone/Acetaminophen [[place] 1 tab PO Q6HR PRN #12 tab 02/16/20 5-325] Ibuprofen [Motrin] 600 mg PO Q8HR PRN #30 tab 02/16/20 Ondansetron [Zofran ODT] 4 mg PO Q8HR PRN #15 tab 02/16/20 Tamsulosin HCl [Flomax] 0.4 mg PO DAILY #7 cap 02/16/20 Ketorolac [Toradol] 10 mg PO Q8HR #15 tab 10/20/21 Ondansetron Odt [Zofran Odt] 4 mg PO Q8HR PRN #20 tab 10/20/21 Allergies Allergy/AdvReac Type Severity Reaction Status Date / Time hydrocodone AdvReac Itching Verified 10/20/21 07:58 Review of Systems ROS Statement: Those systems with pertinent positive or pertinent negative responses have been documented in the HPI. ROS Other: All systems not noted in ROS Statement are negative. Past Medical History Past Medical History: No Reported History Additional Past Medical History / Comment(s): kidney stones History of Any Multi-Drug Resistant Organisms: None Reported Past Surgical History: Appendectomy Additional Past Surgical History / Comment(s): Breast reductive surgery, rt fallopian tube Past Psychological History: Anxiety, Depression Smoking Status: Never smoker Past Alcohol Use History: Occasional Past Drug Use History: Marijuana - Past Family History Mother Family Medical History: Diabetes Mellitus Additional Family Medical History / Comment(s): Gestational DM General Exam Limitations: no limitations General appearance: alert, in no apparent distress Head exam: Present: atraumatic, normocephalic, normal inspection Eye exam: Present: normal appearance, PERRL, EOMI. Absent: scleral icterus, conjunctival injection, periorbital swelling ENT exam: Present: normal exam, mucous membranes moist Neck exam: Present: normal inspection. Absent: tenderness, meningismus, lymphadenopathy Respiratory exam: Present: normal lung sounds bilaterally. Absent: respiratory distress, wheezes, rales, rhonchi, stridor Cardiovascular Exam: Present: regular rate, normal rhythm, normal heart sounds. Absent: systolic murmur, diastolic murmur, rubs, gallop, clicks GI/Abdominal exam: Present: soft, normal bowel sounds. Absent: distended, tenderness, guarding, rebound, rigid Extremities exam: Present: normal inspection, full ROM, normal capillary refill. Absent: tenderness, pedal edema, joint swelling, calf tenderness Back exam: Present: CVA tenderness (L) Neurological exam: Present: alert, oriented X3, CN II-XII intact Psychiatric exam: Present: normal affect, normal mood Skin exam: Present: warm, dry, intact, normal color. Absent: rash Course Vital Signs 10/20/21 07:55 Temperature 97.8 F Pulse Rate 94 Respiratory 18 Rate Blood Pressure 136/85 O2 Sat by Pulse 95 Oximetry - Reevaluation(s) Reevaluation #1: Plan disposition as ultrasound was stuck in dictation. I spoke with radiology in regards to the results as there is difficulty with processing the report 10/20/21 3907 Medical Decision Making - Medical Decision Making Upon arrival patient was placed into room 29. A thorough history and physical exam was performed. I did review the patient's x-ray from yesterday. Ultrasound is performed. Laboratory studies were conducted and she does provide a urine sample. Today function is normal. Urinalysis does demonstrate large blood. Renal ultrasound is performed and there is a significant delay in obtaining the results due to the patient's study being stuck in the dictated status. It demonstrates no evidence of hydronephrosis. 1.4 cm left mid pole renal calculus. There is additionally an incidental 4.7 cm right ovarian cyst. Patient is made aware of these findings. Does have improvement in her pain and nausea. Patient is comfortable being discharged home and will follow up with urology for further treatment options. She is made aware of the ovarian cyst and the need for repeat evaluation if she begins having pain on that side. Patient will also need a repeat ultrasound to ensure that the ovarian cyst has improved in 2 months. Patient understood. Asked return for any new or worsening symptoms. Patient discharged home in stable condition - Lab Data Result diagrams: 10/20/21 08:50 10/20/21 08:50 Lab Results 10/20/21 10/20/21 10/20/21 Range/Units 08:04 08:04 08:50 WBC 10.9 H (3.8-10.6) k/uL RBC 4.50 (3.80-5.40) m/uL Hgb 13.1 (11.4-16.0) gm/dL Hct 40.1 (34.0-46.0) % MCV 89.2 (80.0-100.0) fL MCH 29.1 (25.0-35.0) pg MCHC 32.6 (31.0-37.0) g/dL RDW 12.8 (11.5-15.5) % Plt Count 247 (150-450) k/uL MPV 7.6 Neutrophils % 77 % Lymphocytes % 16 % Monocytes % 5 % Eosinophils % 2 % Basophils % 0 % Neutrophils # 8.4 H (1.3-7.7) k/uL Lymphocytes # 1.7 (1.0-4.8) k/uL Monocytes # 0.5 (0-1.0) k/uL Eosinophils # 0.2 (0-0.7) k/uL Basophils # 0.0 (0-0.2) k/uL Sodium (137-145) mmol/L Potassium (3.5-5.1) mmol/L Chloride (98-107) mmol/L Carbon Dioxide (22-30) mmol/L Anion Gap mmol/L BUN (7-17) mg/dL Creatinine (0.52-1.04) mg/dL Est GFR (CKD-EPI)AfAm (>60 ml/min/1.73 sqM) Est GFR (CKD-EPI)NonAf (>60 ml/min/1.73 sqM) Glucose (74-99) mg/dL Calcium (8.4-10.2) mg/dL Total Bilirubin (0.2-1.3) mg/dL AST (14-36) U/L ALT (4-34) U/L Alkaline Phosphatase (38-126) U/L Total Protein (6.3-8.2) g/dL Albumin (3.5-5.0) g/dL Urine Color Light Yellow Urine Appearance Clear (Clear) Urine pH 7.5 (5.0-8.0) Ur Specific [place] 1.007 (1.001-1.035) Urine Protein Negative (Negative) Urine Glucose (UA) Negative (Negative) Urine Ketones Negative (Negative) Urine Blood Large H (Negative) Urine Nitrite Negative (Negative) Urine Bilirubin Negative (Negative) Urine Urobilinogen <2.0 (<2.0) mg/dL Ur Leukocyte Esterase Large H (Negative) Urine RBC 57 H (0-5) /hpf Urine WBC 105 H (0-5) /hpf Ur Squamous Epith Cells <1 (0-4) /hpf Urine HCG, Qual Not Detected (Not Detectd) 10/20/21 Range/Units 08:50 WBC (3.8-10.6) k/uL RBC (3.80-5.40) m/uL Hgb (11.4-16.0) gm/dL Hct (34.0-46.0) % MCV (80.0-100.0) fL MCH (25.0-35.0) pg MCHC (31.0-37.0) g/dL RDW (11.5-15.5) % Plt Count (150-450) k/uL MPV Neutrophils % % Lymphocytes % % Monocytes % % Eosinophils % % Basophils % % Neutrophils # (1.3-7.7) k/uL Lymphocytes # (1.0-4.8) k/uL Monocytes # (0-1.0) k/uL Eosinophils # (0-0.7) k/uL Basophils # (0-0.2) k/uL Sodium 139 (137-145) mmol/L Potassium 4.0 (3.5-5.1) mmol/L Chloride 103 (98-107) mmol/L Carbon Dioxide 25 (22-30) mmol/L Anion Gap 11 mmol/L BUN 16 (7-17) mg/dL Creatinine 0.61 (0.52-1.04) mg/dL Est GFR (CKD-EPI)AfAm >90 (>60 ml/min/1.73 sqM) Est GFR (CKD-EPI)NonAf >90 (>60 ml/min/1.73 sqM) Glucose 101 H (74-99) mg/dL Calcium 9.2 (8.4-10.2) mg/dL Total Bilirubin 0.8 (0.2-1.3) mg/dL AST 27 (14-36) U/L ALT 23 (4-34) U/L Alkaline Phosphatase 74 (38-126) U/L Total Protein 7.3 (6.3-8.2) g/dL Albumin 4.5 (3.5-5.0) g/dL Urine Color Urine Appearance (Clear) Urine pH (5.0-8.0) Ur Specific [place] (1.001-1.035) Urine Protein (Negative) Urine Glucose (UA) (Negative) Urine Ketones (Negative) Urine Blood (Negative) Urine Nitrite (Negative) Urine Bilirubin (Negative) Urine Urobilinogen (<2.0) mg/dL Ur Leukocyte Esterase (Negative) Urine RBC (0-5) /hpf Urine WBC (0-5) /hpf Ur Squamous Epith Cells (0-4) /hpf Urine HCG, Qual (Not Detectd) Disposition Clinical Impression: Kidney stone, Hematuria, Ovarian cyst Disposition: HOME SELF-CARE Condition: Stable Instructions (If sedation given, give patient instructions): Kidney Stones (ED) Additional Instructions: Please call and make an appointment with the office. You will likely need surgical intervention for this stone. Take the pain and nausea medications as directed and return for any new or worsening symptoms Prescriptions: Ketorolac [Toradol] 10 mg PO Q8HR #15 tab Ondansetron Odt [Zofran Odt] 4 mg PO Q8HR PRN #20 tab PRN Reason: Nausea Is patient prescribed a controlled substance at d/c from ED?: No Referrals: Carmen Yu MD [Primary Care Provider] - 1-2 days Douglas Tucker MD [STAFF PHYSICIAN] - 1-2 days Time of Disposition: 11:15
[2021-10-20 09:22] LABS: ALT 23 U/L (4-34); AST 27 U/L (14-36); African American GFR (CKD) >90 (>60 ml/min/1.73 sqM); Albumin 4.5 g/dL (3.5-5.0); Alkaline Phosphatase 74 U/L (38-126); Anion Gap 11 mmol/L; Blood Urea Nitrogen 16 mg/dL (7-17); Calcium 9.2 mg/dL (8.4-10.2); Carbon Dioxide 25 mmol/L (22-30); Chloride 103 mmol/L (98-107); Glucose 101 mg/dL (74-99); Non-African American GFR(CKD) >90 (>60 ml/min/1.73 sqM); Sodium 139 mmol/L (137-145); Total Bilirubin 0.8 mg/dL (0.2-1.3); Total Protein 7.3 g/dL (6.3-8.2)
--- NOTE | 2021-10-20 10:47 | US ---
EXAMINATION TYPE: US kidneys/renal and bladder DATE OF EXAM: 10/20/2021 COMPARISON: None CLINICAL HISTORY: 26-year-old female left sided stone. TECHNIQUE: Multiple sonographic images of the kidneys and bladder are obtained. FINDINGS: EXAM MEASUREMENTS: Right Kidney: 11.7 x 4.9 x 5.0 cm Left Kidney: 10.6 x 5.2 x 5.8 cm Right Kidney: Inferior pole obscured by bowel gas. No hydronephrosis is seen. Left Kidney: echogenic focus mid kidney= 1.4 cm. Suspect an extrarenal pelvis measuring 1.8 x 1.0 cm. No calyceal dilatation to suggest hydronephrosis. Bladder: Underdistention of the distal evaluation. Bilateral Jets not seen Incidental finding: right ovarian simple cyst - 4.5 x 4.7 x 4.2 cm. IMPRESSION: 1. No evident hydronephrosis. 2. A 1.4 cm nonobstructive left midpole renal calculus. 3. Incidental 4.7 cm right renal cyst. This may represent a dominant follicle or functional cyst. Fol low-up pelvic ultrasound in 8 weeks to ensure involution.
== END 2021-10-20 11:35 | disposition home or self-care (01) ==
LOC: EC 07:53
DX: N20.0 Calculus of kidney (principal); R31.9 Hematuria, unspecified; N83.201 Unspecified ovarian cyst, right side; F41.9 Anxiety disorder, unspecified; F32.A Depression, unspecified; F12.90 Cannabis use, unspecified, uncomplicated; Z88.5 Allergy status to narcotic agent; Z79.899 Other long term (current) drug therapy
CPT/HCPCS: 36415; 80053; 85025; 81001; 81025; 87086; 87077; 87186; 76770; 99284; 96374; 96375; J2405; J1885

== ENCOUNTER → 2022-02-11 | Outpatient (CLI) | payer BC ==
--- NOTE | 2022-02-11 13:40 | XR ---
EXAMINATION TYPE: XR KUB DATE OF EXAM: 02/11/2022 HISTORY: Pain Comparison: None.Single KUB is submitted for interpretation. Findings: Right renal calculi: None Visualized. Right ureteral calculi: None Visualized. Left renal calculi: 6.4 mm left renal calculus mid pole. Left ureteral calculi: None Visualized. Pelvic calcifications: None Visualized. Bowel gas pattern is unremarkable. No free air. No mass effects. IMPRESSION: 1. Left renal calculus
== END | disposition home or self-care (01) ==
LOC: RADXRMAIN 13:10
PROVIDERS: ATTEND Urology
DX: N20.0 Calculus of kidney (principal)
CPT/HCPCS: 74018

== ENCOUNTER → 2022-03-25 | Outpatient (CLI) | payer BC ==
--- NOTE | 2022-03-25 14:00 | XR ---
EXAMINATION TYPE: XR KUB DATE OF EXAM: 03/25/2022 1:22 PM CLINICAL HISTORY: Recent lithotripsy. Kidney stone. TECHNIQUE: Two supine KUB images of the abdomen are obtained. COMPARISON: Abdominal x-ray February 11, 2022. FINDINGS: Prior visualized 6 mm round calculus in the left kidney is now not clearly identified. No n ew nephrolithiasis. Overall nonspecific nonobstructive bowel gas pattern. Visualized osseous structures are intact. IMPRESSION: As above.
== END | disposition home or self-care (01) ==
LOC: RADXRMAIN 13:13
PROVIDERS: ATTEND Urology
DX: N20.1 Calculus of ureter (principal); N20.0 Calculus of kidney
CPT/HCPCS: 74018

== ENCOUNTER → 2022-09-16 | Outpatient (CLI) | payer BC ==
--- NOTE | 2022-09-16 14:51 | XR ---
EXAMINATION TYPE: XR KUB DATE OF EXAM: 09/16/2022 2:42 PM INDICATION: Patient age:Female; 27 years old; Reason for study: N200; COMPARISON: 03/25/2022. TECHNIQUE: One radiographic view of the abdomen was obtained. FINDINGS: The bowel gas pattern is nonspecific without dilated loops of small or large bowel. There i s no evidence for organomegaly or pneumoperitoneum. The osseous structures are intact. No abnormal calcifications are present. Fecal material and gas are demonstrated throughout the colon and rectum. IMPRESSION: Nonspecific bowel gas pattern without radiographic evidence for acute process.
== END | disposition home or self-care (01) ==
LOC: RADXRMAIN 14:21
PROVIDERS: ATTEND Urology
DX: N20.0 Calculus of kidney (principal)
CPT/HCPCS: 74018

== ENCOUNTER → 2024-02-07 | Outpatient (CLI) | payer BC ==
--- NOTE | 2024-02-07 15:03 | MR ---
EXAMINATION TYPE: MR hip LT wo con DATE OF EXAM: 02/07/2024 1:42 PM COMPARISON: Radiographs 09/13/2023 CLINICAL INDICATION: Female, 28 years old with history of M25.552 LEFT HIP PAIN, Left hip pain, possi ble Labral tear TECHNIQUE: Multiplanar, multisequence images of the left hip are obtained without IV contrast. FINDINGS: No evidence for hip fracture or AVN. SI joints appear symmetric and intact. Pubic symphysis is intact . No suspicious bone marrow replacement. No discrete labral tear given nonarthrographic technique. No paralabral cyst. The rectus femoris and hamstring origins as well as the iliopsoas insertions appear intact. There is mild increased signal at the left gluteal insertion suggesting some insertional tendinosis. Symmetric course, caliber, and signal intensity of the sciatic nerves. Incidental 1 cm cyst at the right labia likely a Bartholin's gland cyst. Uterus and both ovaries are visualized. Arcuate configuration to the uterus. Prominent follicular changes in the left ovary with a dominant follicle or functional cyst measuring 1.9 cm. Trace cul-de-sac free fluid likely physiolog ic. IMPRESSION: 1. Mild insertional gluteal tendinosis on the left. 2. No sizable acetabular labral tear or paralabral cyst is identified. 3. Incidental finding, suspected 1 cm right sided Bartholin's gland cyst. [facility], , 02/07/2024 3:01 PM
== END | disposition home or self-care (01) ==
LOC: RADMRIMAIN 13:01
PROVIDERS: ATTEND Orthopaedic Surgery
DX: M25.552 Pain in left hip (principal)

== ENCOUNTER → 2024-03-20 | Outpatient (CLI) | payer BC ==
--- NOTE | 2024-03-20 22:06 | MR ---
EXAMINATION TYPE: MR cervical spine wo con DATE OF EXAM: 03/20/2024 8:27 PM COMPARISON: None. CLINICAL INDICATION: Female, 28 years old with history of M54.2, M54.12, Neck pain, Headaches, Occasi onal numbness TECHNIQUE: Multiplanar multiecho imaging on a 3.0 Kathi magnet is performed through the cervical spin e. IV Contrast: mL (None, if empty) FINDINGS: The craniovertebral junction is normal. Vertebral body alignment is normal. C7-T1: Subtle left paracentral disc bulge is minimal anterior thecal sac compression. No cord contac t is evident. No spinal canal stenosis or neural foraminal stenosis.. C6-7: No focal disc herniation or significant disc bulge is evident. No spinal canal stenosis or nat ral foraminal stenosis is present. C5-6: Minimal central protrusion is present with mild anterior thecal sac compression. No cord contac t is evident. No spinal canal stenosis or neural foraminal stenosis. C4-5: No focal disc herniation or significant disc bulge is evident. No spinal canal stenosis. Moder ate right foraminal narrowing from uncovertebral joint atrophy is present. C3-4: No focal disc herniation or significant disc bulge is evident. No spinal canal stenosis. Moder ate right foraminal narrowing from uncovertebral joint atrophy is present. C2-3: No focal disc herniation or significant disc bulge is evident. No spinal canal stenosis or nat ral foraminal stenosis is present. IMPRESSION: 1. No spinal canal stenosis. 2. Right moderate foraminal narrowing C3-4 and C4-5 from uncovertebral joint hypertrophy [facility], Workstation: [facility], 03/20/2024 10:04 PM
== END | disposition home or self-care (01) ==
LOC: RADMRIMAIN 20:15
PROVIDERS: ATTEND Orthopaedic Surgery
DX: M48.02 Spinal stenosis, cervical region (principal); M47.22 Other spondylosis with radiculopathy, cervical region
CPT/HCPCS: 72141

== ENCOUNTER → 2024-05-16 | Outpatient (CLI) | payer BC ==
[2024-05-16 11:25] VITALS: BP 111/74; PULSE 106; RESP 16; TEMP 97.1
--- NOTE | 2024-05-16 15:38 | P.PAINPG ---
PQRS Measure Charge Sheet Comment: HISTORY OF PRESENT ILLNESS: A 28 yr old female as a referral from Dr Cobb presents today w severe and chronic neck pain > 3 mo secondary to radiculopathy, spondylosis and facet arthropathy without myelopathy for evaluation. Pt states pain level is provoked at 7 /10 in intensity, constant, localized in the mid cervical spine, predominantly axial, throbbing in character w occasional shooting pain towards the R shoulder. Pain is provoked by rotation, hyperextension. Pain is alleviated by PT x 6 wks which ended in Apr 2024, physician guided home exercises 4-5 times weekly since Apr 2024, massage therapy monthly since 2022 which she is currently in, heat, medications, repositioning and rest . Cervical disability score at 17. Pt liked PT and would like to continue. PMH: OA, Nephrolithiasis, Astigmatism, MDD/ Anxiety PSH: Appendectomy, Breast Reduction, R Salpingectomy, Lithotripsy SH: Never smoker, Occ ETOH use, Occ Cannabis use FH: Mo- DM. Fa- MDD All: See list Meds: See list incl Lyrica, Ibu REVIEW OF ORGAN SYSTEMS: CONSTITUTIONAL: No fevers or chills. No recent weight loss. NEUROLOGICAL: + numbness and tingling along the distal extremities. No seizure disorders or headaches. MUSCULOSKELETAL: + pain PSYCHIATRIC: Denies current depression or suicidal thoughts. Physical Examinations : Constitutional : Cooperative , not in acute distress . Neurologic : Cranial nerve II to XII intact. No focal neurological deficits. Psychiatric : alert & oriented x 3. Matching mood & appropriate affect. Judgment & insight intact. Musculoskeletal : Cervical Spine Motor strength in the deltoid and biceps: Normal right side. Normal Left side Motor strength biceps and the wrist extensors: Normal right side . Normal left side Motor strength in the triceps muscle: Normal right side. Normal left side Deep tendon reflexes: Normal at the biceps. Normal at Brachioradialis. Normal at triceps Vertebral body tenderness to deep palpa tion over C4 Cervical facet loading test: positive bilaterally Spurling test: positive bilaterally Neck distraction test: positive R C3- C4, C4-C5 Devonte sign: positive bilaterally Lumbar spine Motor strength lower extremities ,thigh and legs 5/5 Right side , 5/5 Left side Deep tendon reflexes : Normal Knee Jerk. Normal Ankle Jerk Vertebral body tenderness over Mccartney Test positive Lumbar facet Loading Test: positive Right / positive Left Range of motion of the lumbar spine Flexion 30 degrees, extension 10 degrees Straight Leg Raise test: Left/ Right positive at degrees Virgilio test: positive right / positive left. Severe tenderness over the Sacroiliac joint on the Right / Left sides Gaenslen test: positive bilaterally Seated flexion test: positive bilaterally. Sacral spine : Severe tenderness over the Sacroiliac joint: right side / left side Range of motion: Flexion of the lumbar spine <60 degrees Range of motion: Extension of the lumbar spine <20 degrees Gaenslen's Test positive Virgilio test: positive right side / left side Thigh Thrust Test Sacral Thrust Test Imaging: MRI non contrast cervical spine from 03/20/24 reviewed Assessment/ Plan : C3-C4, C4-C5 radiculopathy Recommendation of R TFESI C3-C4/ C4-C5 #1 and PT x 6 wks. Risks, benefits of procedure discussed and patient verbalized understanding. Admits to anti- coagulant use or medical history of diabetes. Protocol for discontinuation/ continuation of medications chyna procedure discussed. All questions answered. I have spent greater than 30 minutes on patient care today. Dr Varela was available by phone for the evaluation of this patient. The time was used to review the medical records including relevant urine studies and Prescription history (MAPs), review of the available imaging, evaluation and examination of the patient, coordination of care with the medical staff and if applicable referring physicians, as well as creation of the medical record PQRS Narrative: Smoking Status Never smoker Home Medications: Ambulatory Orders Ibuprofen [Motrin] 600 mg PO Q8HR PRN #30 tab 12/03/18 Acetaminophen Tab [Tylenol] 650 mg PO Q4HR PRN tab 04/14/22 FLUoxetine HCL [PROzac] 40 mg PO DAILY 30 Days #60 cap 04/14/22 Melatonin 5 mg PO HS 30 Days #30 tab 04/14/22 Nrfrmwlu-Xijqzckawg-Dtca Oint [Triple Antibiotic Ointment] 1 applic TOPICAL QID PRN 30 Days #1 each 04/14/22 lamoTRIgine [LaMICtal] 50 mg PO DAILY 30 Days #60 tab 04/14/22 traZODone HCL [Desyrel] 100 mg PO HS PRN 30 Days #60 tab 04/14/22 Controlled Substance Measures - Controlled Substance Measures Is patient prescribed a controlled substance at discharge?: Yes When asked, does pt state using other controlled substances?: No If prescribed controlled substance>3 days was MAPS reviewed?: Prescribed <3 Days
== END ==
LOC: PNWHC3 09:26
PROVIDERS: ATTEND Specialist
DX: M54.12 Radiculopathy, cervical region (principal); F12.90 Cannabis use, unspecified, uncomplicated; Z88.5 Allergy status to narcotic agent
CPT/HCPCS: 99211

== ENCOUNTER 2024-06-05 12:30 | Day surgery (SDC) | payer BC ==
[~2024-06-05 12:30] MED LIST: LACTATED RINGERS 1,000 ML IV SCH
[2024-06-05 13:13] VITALS: TEMP 97.3
[2024-06-05] MEDS ORDERED: DEXAMETHASONE SOD PHOSPHATE 10 MG/ML 1 ML VIAL ONE (13:41)
[2024-06-05] MEDS ORDERED: IOPAMIDOL M200 10 ML VIAL ONE (13:41)
--- NOTE | 2024-06-05 14:04 | P.PCN ---
Date of Procedure: 06/05/24 Procedure(s) Performed: PREOPERATIVE DIAGNOSIS: 1-cervical radiculopathy . POSTOPERATIVE DIAGNOSIS: 1-cervical radiculopathy. PROCEDURE 1. Transforaminal epidural steroid injection under fluoroscopic guidance at right C3-4 , L4-5 level. (Fluoro images stored on file in the rad Dept ) 2. Cervical epidurogram . ANESTHESIA: Local with 1% lidocaine 4 ml for skin and subcu infiltration. EBL: Minimal PROCEDURE INDICATION: The patient with low back pain and radiculopathy symptoms unresponsive to conservative treatment. PROCEDURE DESCRIPTION / TECHNIQUE: The patient was seen and identified in the preoperative area. Risks, benefits, complications, and alternatives were discussed with the patient. The patient agreed to proceed with the procedure and signed the consent, and vital signs were stable. Patient was taken to the OR and time out was completed. The patient was placed in the lateral position on procedure table , right side up. The cervical area was prepped and draped in the usual sterile fashion. Critical pause was taken. Vital signs were closely monitored during the procedure. Using oblique fluoroscopy, the foraminal of right-sided C3-4 level was identified, and the skin and deeper tissues just below was localized with 1% lidocaine. Subsequently, a 23-gauge 3.5-inch spinal needle was advanced under a tunneled view fluoroscopic guidance just at 6 block position of the foraminal of the at the right C3-4 Under lateral fluoroscopy, the needle was then advanced to the posterior border of the interforaminal space. After negative aspiration of CSF and blood and with no paresthesias, 1 mL Isovue 200 contrast dye was injected excellent epidurogram and outlining of the nerve root Subsequently, needle placement confirmed with the AP oblique and lateral view ,then after that ,the block solution containing 10 mg Dexamethasone ,and 0.5 mL of 0.9% normal saline PF was injected. Needle was removed and the same procedure was repeated at the right C4-5 level. At the end of the procedure, skin was cleansed, and bandages were applied. COMPLICATIONS:none DISPOSITION / PLANS: The patient was placed in a supine position and transferred to the recovery area in a stable condition for observation. There was no evidence of lower extremity motor or sensory deficit after the procedure. Patient was discharged from the recovery room after meeting discharge criteria. Home discharge instructions were given to the patient by the staff. The patient was reexamined prior to discharge.
[2024-06-05 14:08] VITALS: RESP 16
[2024-06-05 14:14] VITALS: BP 98/71; PULSE 67
--- NOTE | 2024-06-05 14:16 | FL ---
EXAMINATION TYPE: FL guided pain mgmt statistic DATE OF EXAM: 06/05/2024 CLINICAL INDICATION: Female, 28 years old with history of PAIN; [facility], TECHNIQUE: Fluoroscopy. COMPARISON: None. FINDINGS: Fluoroscopic guidance was provided during pain relief procedure performed by Dr. Varela . A total of 20.7 seconds of fluoroscopic time was utilized during the procedure and 4 spot images a re acquired. Images acquired shows needle localization at several levels in the cervical spine. Mult ilevel degenerative changes are present. Total DAP: 0.75097 mGym2. IMPRESSION: As Above. [facility], , 06/05/2024 2:14 PM
== END 2024-06-05 14:28 | disposition home or self-care (01) ==
LOC: ORPAIN 12:30
PROVIDERS: ATTEND Specialist
DX: M54.12 Radiculopathy, cervical region (principal); Z88.5 Allergy status to narcotic agent
CPT/HCPCS: 81025; 64479; 64480; J1100; Q9966

== ENCOUNTER → 2024-06-06 | Outpatient (CLI) | payer BC ==
[2024-06-06 19:10] LABS: Basophils # (A) 0.02 X 10*3/uL (0.00-0.10); Basophils % (A) 0.1 %; Eosinophils # (A) 0 X 10*3/uL (0.04-0.35); Eosinophils % (A) 0 %; HCT 39.3 % (37.2-46.3); HGB 13.4 g/dL (12.0-15.0); Lymphocytes # (A) 1.54 X 10*3/uL (0.90-5.00); Lymphocytes % (A) 7.5 %; MCH 30.2 pg (27.0-32.0); MCHC 34.1 g/dL (32.0-37.0); MCV 88.5 FL (80.0-97.0); Mean Platelet Volume 10.8 FL (9.5-12.2); Monocytes # (A) 1.29 X 10*3/uL (0.20-1.00); Monocytes % (A) 6.3 %; NRBC Per 100 WBC 0 X 10*3/uL (0.00-0.01); Neutrophils # (A) 17.45 X 10*3/uL (1.80-7.70); Neutrophils % (A) 85.4 %; Platelet Count 264 X 10*3/uL (140-440); RBC 4.44 X 10*6/uL (4.10-5.20); RDW 12.3 % (11.5-14.5); WBC 20.44 X 10*3/uL (4.50-10.00)
[2024-06-06 19:11] LABS: Appearance,Urine Cloudy (Clear); Bilirubin,Urine Small (Negative); Blood,Urine Negative (Negative); Color,Urine Dark Yellow (Yellow); Ketones,Urine Trace (Negative); Nitrite,Urine Negative (Negative); PH, Urine 5.5; Specific Gravity,Urine 1.032 (1.001-1.030); Urobilinogen,Urine 0.2
[2024-06-06 19:16] LABS: BUN/Creat Ratio 24.33 Ratio (12.00-20.00); Blood Urea Nitrogen 21.9 mg/dL (9.0-27.0); Carbon Dioxide 22.5 mmol/L (21.6-31.8); Chloride 104 mmol/L (96-109); Glucose 96 mg/dL (70-110); Potassium 3.9 mmol/L (3.5-5.5); Sodium 141 mmol/L (135-145)
[2024-06-06 20:17] LABS: Bacteria,Urine 4+ (None Seen); Calcium Oxalate Crystals,Urine Present (None Seen)
== END | disposition home or self-care (01) ==
LOC: LABPAT 13:17
PROVIDERS: ATTEND Urology
DX: Z01.812 Encounter for preprocedural laboratory examination (principal); N20.0 Calculus of kidney
CPT/HCPCS: 80048; 81001; 85025; 87086

== ENCOUNTER 2024-06-13 07:08 | Day surgery (SDC) | payer BC ==
--- NOTE | 2024-06-12 11:57 | P.GSHP ---
History of Present Illness H&P Date: 06/12/24 28-year-old female with kidney stone disease. She has bilateral small renal stone 4 mm in the lower pole of each kidney. We discussed treatment options including observation shockwave lithotripsy or ureteroscopy. She is having pain and does not wish to wait for shockwave lithotripsy. She comes for left ureteroscopy laser lithotripsy. If this controls the pain on the left side then I would consider right and a secondary setting. If it does not control the pain I do not recommend doing the right side. The risks and complications including infection bleeding pain damage to the kidney failure to retrieve the stone had been explained understood and accepted. - Constitutional Constitutional: Denies chills, Denies fever - EENT Eyes: denies blurred vision, denies pain Ears, nose, mouth and throat: Denies headache, Denies sore throat - Cardiovascular Cardiovascular: Denies chest pain, Denies shortness of breath - Respiratory Respiratory: Denies cough, Denies 7 - Gastrointestinal Gastrointestinal: Denies abdominal pain, Denies diarrhea, Denies nausea, Denies vomiting - Genitourinary (Female) Genitourinary: Denies dysuria, Denies hematuria - Genitourinary (Male) Genitourinary: Denies dysuria, Denies hematuria - Musculoskeletal Musculoskeletal: Denies myalgias - Integumentary Integumentary: Denies pruritus, Denies rash - Neurological Neurological: Denies numbness, Denies weakness - Psychiatric Psychiatric: Denies anxiety, Denies depression - Endocrine Endocrine: Denies fatigue, Denies weight change Past Medical History Past Medical History: GERD/Reflux, Musculoskeletal Disorder, Osteoarthritis (OA) Additional Past Medical History / Comment(s): kidney stones, pinched nerves in neck History of Any Multi-Drug Resistant Organisms: None Reported Past Surgical History: Appendectomy, Breast Surgery Additional Past Surgical History / Comment(s): Breast reductive surgery, rt fallopian tube Past Anesthesia/Blood Transfusion Reactions: No Reported Reaction Smoking Status: Never smoker - Past Family History Mother Family Medical History: Diabetes Mellitus Additional Family Medical History / Comment(s): Gestational DM Father Additional Family Medical History / Comment(s): Depression/ Anxiety Medications and Allergies Home Medications Medication Instructions Recorded Confirmed Type FLUoxetine HCL [PROzac] 40 mg PO DAILY 30 Days #60 cap 04/14/22 06/11/24 Rx lamoTRIgine [LaMICtal] 50 mg PO DAILY 30 Days #60 tab 04/14/22 06/11/24 Rx traZODone HCL [Desyrel] 100 mg PO HS PRN 30 Days #60 tab 04/14/22 06/11/24 Rx Semaglutide [Wegovy] 2.4 mg SQ WE 05/31/24 06/11/24 History Upfjquc-Gdev-Dnky [id number] 2 each PO Q6HR PRN 06/11/24 06/11/24 History [Excedrin] Cetirizine HCl [Zyrtec] 10 mg PO DAILY 06/11/24 06/11/24 History Melatonin 5 mg PO HS PRN 06/11/24 06/11/24 History Omeprazole [PriLOSEC] 40 mg PO DAILY 06/11/24 06/11/24 History Vitamin B Complex 1 each PO DAILY 06/11/24 06/11/24 History Allergies Allergy/AdvReac Type Severity Reaction Status Date / Time hydrocodone AdvReac Itching Verified 06/11/24 08:42 Results - Imaging US - abdomen: report reviewed, image reviewed Assessment and Plan Assessment: Impression: Stone disease, bilateral lower pole stones, small, back pain left greater than right Recommendations: Patient will undergo cystoscopy left-sided ureteroscopy laser lithotripsy to a 4 mm left lower pole stone to see if we can relieve her discomfort risks and complications have been outlined.
[~2024-06-13 07:08] MED LIST changes: +HYDROmorphone 0.5 MG/0.5 ML SYRINGE IVP PRN; -LACTATED RINGERS 1,000 ML IV SCH; +MIDAZOLAM 2 MG/2 ML VIAL IV PRN
--- NOTE | 2024-06-13 07:26 | XR ---
EXAMINATION TYPE: XR KUB DATE OF EXAM: 06/13/2024 7:19 AM COMPARISON: 04/24/2024 CLINICAL INDICATION: Female, 28 years old with history of kidney stones; PHH, pain, preop for urology procedure left kidney stone TECHNIQUE: One radiographic view of the abdomen was obtained. FINDINGS: A couple calcifications in the left mid abdomen measuring 6 mm and 3 mm. Mild overall stool burden. Nonobstructive bowel gas pattern. Additional subtle 4 mm calcification right mid abdomen. IMPRESSION: A couple left-sided renal stones measuring 6 mm and 3 mm. Suspect a 4 mm stone on the right. [facility], Workstation: [id number], 06/13/2024 7:23 AM
[2024-06-13] MEDS: IV FLUID CONTINUATION 1,000 ML IV ONE (07:38)
[2024-06-13 07:54] LABS: Glucose,Whole Blood 75 mg/dL (70-110)
[2024-06-13] MEDS: LACTATED RINGERS 1,000 ML IV SCH (08:00)
[2024-06-13 08:01] LABS: HCT 40.8 % (34.0-46.0); HGB 13.6 gm/dL (11.4-16.0); MCH 29.5 pg (25.0-35.0); MCHC 33.3 g/dL (31.0-37.0); MCV 88.8 fL (80.0-100.0); Mean Platelet Volume 7.2; Platelet Count 225 k/uL (150-450); RDW 12.8 % (11.5-15.5); WBC 5.9 k/uL (3.8-10.6)
[2024-06-13] MEDS: DEXAMETHASONE SOD PHOSPHATE 4 MG/ML 1 ML VIAL IV ONE (08:01)
[2024-06-13] MEDS: ONDANSETRON 4 MG/2 ML VIAL IVP ONE (08:01)
[2024-06-13] MEDS: SCOPOLAMINE 1 MG/72 HR PATCH TRANSDERM ONE (08:06)
[2024-06-13] MEDS ORDERED: MIDAZOLAM 2 MG/2 ML VIAL ONE (08:38)
[2024-06-13] MEDS ORDERED: fentaNYL (PF) 50 MCG/ML 2 ML AMP ONE (08:38)
[2024-06-13] MEDS ORDERED: PROPOFOL 10 MG/ML 20 ML VIAL IV ONE (08:38)
[2024-06-13] MEDS ORDERED: LIDOCAINE 1% INJ 10MG/ML (20 ML MDV) ONE (08:38)
[2024-06-13] MEDS ORDERED: SUCCINYLCHOLINE CHLORIDE 200 MG/10 ML VIAL IV ONE (08:38)
[2024-06-13] MEDS ORDERED: ROCURONIUM 10 MG/ML (5 ML VIAL) IV ONE (08:38)
--- NOTE | 2024-06-13 09:38 | P.OP ---
Date of Procedure: 06/13/24 Preoperative Diagnosis: Left renal stones with intermittent colic Postoperative Diagnosis: Same Procedure(s) Performed: Cystoscopy, left ureteroscopy with laser lithotripsy and stone basketing Anesthesia: BERTHA Surgeon: Anish Sandy Estimated Blood Loss (ml): 0 Pathology: other Condition: stable Disposition: PACU Indications for Procedure: The patient is 28. She has 2 tiny stones in her left kidney and one tiny 1 in the right. She has chronic back pain in particular on the left. The question as to whether this is due to to stone colic or other reasons. There were no other obvious reasons. She comes for ureteroscopy and lithotripsy on the left side. Description of Procedure: Patient brought to the operating suite. Given a general anesthetic. Placed lithotomy position with sterile prep and drape. Cystoscopy Foroblique lens identifies a normal urethra. The ureteral orifices are normal. The bladder mucosa is unremarkable. The left ureteral orifice is intubated with an 035 wire up into the left kidney. Over the wire is then passed an 11-13 Croatian reentry sheath. The wire and inner sheath were removed. Through the outer sheath a flexible ureteroscope was passed up into the left kidney. I look throughout the kidney and identify 2 stones 1 about 2 to 3 mm 1 about 5 mm. With the 200 m laser probe the stones are broken up into tiny pieces. The largest pieces are basketed and sent to pathology. At the end the procedure there is no significant stone remaining. There is no edema or stone in the ureter. This sheath is removed the bladder is drained the patient is awakened and returned to recovery in good condition. She tolerated the procedure well and will be discharged home upon recovery and follow in the office in 1 week
[2024-06-13 09:40] VITALS: TEMP 97.1
[2024-06-13 10:00] VITALS: RESP 16
--- NOTE | 2024-06-13 10:04 | FL ---
EXAMINATION TYPE: FL guidance operating room DATE OF EXAM: 06/13/2024 9:30 AM COMPARISON: Pre Operative Images if available both CT/MRI or plain film CLINICAL INDICATION: Female, 28 years old with history of Cysto for left kidney stone; TECHNIQUE: FL guidance operating room, multiple fluoroscopic images provided for procedure. DAP: 0.2912 mGym2 Gycm2 uGym2 cGycm2 or equivalent. FINDINGS: Multiple intraoperative fluoroscopic images were taken. No immediate intraoperative complication. Multilevel degeneration changes throughout the spine. IMPRESSION: 1. No evidence for intraoperative complication. 2. Please see the operative/procedural note for further details. [facility], , 06/13/2024 10:01 AM
[2024-06-13] MEDS: KETOROLAC 15 MG/ML 1 ML VIAL IVP STA (10:48)
[2024-06-13 11:06] VITALS: BP 127/80; PULSE 88
== END 2024-06-13 11:26 | disposition home or self-care (01) ==
LOC: OR 07:08
PROVIDERS: ATTEND Urology
DX: N20.0 Calculus of kidney (principal); Z88.5 Allergy status to narcotic agent
CPT/HCPCS: 81025; 85027; 82365; 74018; 52353; C1769; C1758; J2250; J0330; J1100; J0690; J2405; J2003; J3010; J1885; J2704

== ENCOUNTER → 2024-06-25 | Outpatient (CLI) | payer BC ==
[2024-06-25 09:54] VITALS: BP 116/80; PULSE 94; RESP 16
--- NOTE | 2024-06-25 14:14 | P.PAINPG ---
PQRS Measure Charge Sheet Comment: HISTORY OF PRESENT ILLNESS: A 28 yr old female w at side presents today w severe and chronic neck pain > 3 mo secondary to radiculopathy, spondylosis and facet arthropathy without myelopathy for evaluation s/p R TFESI C3-C4/ C4-C5 #1. Pt states she experienced 20 % pain relief x 1 wk s/p procedure. Pt states pain level is provoked at 8 /10 in intensity, constant, localized in the mid cervical spine, predominantly axial, throbbing in character w occasional shooting pain towards the R side of head and R shoulder. Pain is provoked by rotation, hyperextension. Pain is alleviated by PT x 8 wks since Apr 2024 which she is currently in, physician guided home exercises 4-5 times weekly since Apr 2024, massage therapy monthly since 2022 which she is currently in, heat, medications, use of a TENS unit at home, repositioning and rest . Interventional procedures include R TFESI C3-C4/ C4-C5 x1 Medications include Lyrica, Ibu, Cannabis REVIEW OF ORGAN SYSTEMS: CONSTITUTIONAL: No fevers or chills. No recent weight loss. NEUROLOGICAL: + numbness and tingling along the distal extremities. No seizure disorders or headaches. MUSCULOSKELETAL: + pain PSYCHIATRIC: Denies current depression or suicidal thoughts. Physical Examinations : Constitutional : Cooperative , not in acute distress . Neurologic : Cranial nerve II to XII intact. No focal neurological deficits. Psychiatric : alert & oriented x 3. Matching mood & appropriate affect. Judgment & insight intact. Musculoskeletal : Cervical Spine Motor strength in the deltoid and biceps: Normal right side. Normal Left side Motor strength biceps and the wrist extensors: Normal right side . Normal left side Motor strength in the triceps muscle: Normal right side. Normal left side Deep tendon reflexes: Normal at the biceps. Normal at Brachioradialis. Normal at triceps Vertebral body tenderness to deep palpation over C4 Cervical facet loading test: positive R C3-C4, C4-C5 Spurling test: positive bilaterally Neck distraction test: positive R C3- C4, C4-C5 Devonte sign: positive bilaterally Lumbar spine Motor strength lower extremities ,thigh and legs 5/5 Right side , 5/5 Left side Deep tendon reflexes : Normal Knee Jerk. Normal Ankle Jerk Vertebral body tenderness over Mccartney Test positive Lumbar facet Loading Test: positive Right / positive Left Range of motion of the lumbar spine Flexion 30 degrees, extension 10 degrees Straight Leg Raise test: Left/ Right positive at degrees Virgilio test: positive right / positive left. Severe tenderness over the Sacroiliac joint on the Right / Left sides Gaenslen test: positive bilaterally Seated flexion test: positive bilaterally. Sacral spine : Severe tenderness over the Sacroiliac joint: right side / left side Range of motion: Flexion of the lumbar spine <60 degrees Range of motion: Extension of the lumbar spine <20 degrees Gaenslen's Test positive Virgilio test: positive right side / left side Thigh Thrust Test Sacral Thrust Test Imaging: MRI non contrast cervical spine from 03/20/24 reviewed Assessment/ Plan : C3-C4, C4-C5 radiculopathy Recommendation of R MBB C3-C4/ C4-C5 #1. Risks, benefits of procedure discussed and patient verbalized understanding. Admits to anti- coagulant use or medical history of diabetes. Protocol for discontinuation/ continuation of medications chyna procedure discussed. Minimal anesthesia including Fentanyl and Versed if clinically indicated. All questions answered. I have spent greater than 30 minutes on patient care today. Dr Varela was available by phone for the evaluation of this patient. The time was used to review the medical records including relevant urine studies and Prescription history (MAPs), review of the available imaging, evaluation and examination of the patient, coordination of care with the medical staff and if applicable referring physicians, as well as creation of the medical record PQRS Narrative: Smoking Status Never smoker Hx Alcohol Use (MH) No Home Medications: Ambulatory Orders FLUoxetine HCL [PROzac] 40 mg PO DAILY 30 Days #60 cap 04/14/22 lamoTRIgine [LaMICtal] 50 mg PO DAILY 30 Days #60 tab 04/14/22 traZODone HCL [Desyrel] 100 mg PO HS PRN 30 Days #60 tab 04/14/22 Semaglutide [Wegovy] 2.4 mg SQ WE 05/31/24 Lljlvlr-Jndt-Ghyh [id number] [Excedrin] 2 each PO Q6HR PRN 06/11/24 Cetirizine HCl [Zyrtec] 10 mg PO DAILY 06/11/24 Melatonin 5 mg PO HS PRN 06/11/24 Omeprazole [PriLOSEC] 40 mg PO DAILY 06/11/24 Vitamin B Complex 1 each PO DAILY 06/11/24 Sulfamethox-Tmp 800-160Mg [Bactrim DS 800-160 mg] 1 tab PO Q12HR #14 tab 06/13/24 Sulfamethoxazole/Trimethoprim [Bactrim SS 400-80 mg] 1 each PO BID 06/13/24 traMADol HCL 50 mg PO Q6H 3 Days #12 tab 06/13/24 Controlled Substance Measures - Controlled Substance Measures Is patient prescribed a controlled substance at discharge?: No
== END ==
LOC: PNWHC3 09:19
PROVIDERS: ATTEND Specialist
DX: M47.812 Spondylosis without myelopathy or radiculopathy, cervical region (principal); Z88.5 Allergy status to narcotic agent
CPT/HCPCS: 99211

== ENCOUNTER → 2024-07-19 | Outpatient (CLI) | payer BC ==
--- NOTE | 2024-07-19 15:29 | FL ---
EXAMINATION TYPE: FL hysterosalpingography DATE OF EXAM: 07/19/2024 3:17 PM COMPARISON: None CLINICAL INDICATION:Female, 28 years old with history of N97.9 FEMALE INFERTILITY; TECHNIQUE: The patient was draped in a sterile technique. A speculum examination was performed to hansel ntify the cervical os and no abnormal cervical discharge was noted. A 5-Icelandic catheter was inserted past the cervix and its balloon insufflated. The speculum was then removed and under fluoroscopic gu idance 5 mL of Isovue 370 was injected into the endometrial cavity. Frontal and oblique fluoroscopic images were obtained, the balloon deflated, and catheter removed. A preprocedural fluoroscopic imag e of the pelvis was obtained. DAP: 0.46261 mGym2 FINDINGS: Inspector And Mender view of the pelvis demonstrates no acute process or osseous abnormality. Uterus: The endometrium demonstrates The morphology of the opacified uterine cavity does not reveal a ny obvious filling defect such as any septum. . Right fallopian tube: The right fallopian tube likely terminates compatible with patient's history of tubal ligation. Left fallopian tube: The left fallopian tube has a normal appearance and demonstrates extravasation o f contrast into the pelvis. Contrast was seen in both Fallopian tubes with normal spillage into the pelvis bilaterally. IMPRESSION: 1. Patent left fallopian tube with free spillage of contrast. 2. Surgically occluded right fallopian tube. [facility], , 07/19/2024 3:27 PM
== END | disposition home or self-care (01) ==
LOC: RADFLMAIN 14:15
PROVIDERS: ATTEND Obstetrics & Gynecology
DX: N97.1 Female infertility of tubal origin (principal)
CPT/HCPCS: 58340; 74740; Q9967

== ENCOUNTER 2024-07-20 08:22 | Day surgery (SDC) | payer BC ==
[2024-07-17 16:05] VITALS: BMI 29.7
[2024-07-20 08:46] VITALS: TEMP 97.5
[2024-07-20] MEDS: LACTATED RINGERS 1,000 ML IV SCH (08:52)
[2024-07-20] MEDS: IV FLUID CONTINUATION 1,000 ML IV ONE ×2 (08:52→10:10)
[2024-07-20] MEDS ORDERED: MIDAZOLAM 2 MG/2 ML VIAL ONE (09:53)
[2024-07-20] MEDS ORDERED: ROPIVACAINE 5 MG/ML 30 ML VIAL ONE (09:53)
[2024-07-20] MEDS ORDERED: fentaNYL (PF) 50 MCG/ML 2 ML AMP ONE (09:53)
--- NOTE | 2024-07-20 10:06 | P.PCN ---
Date of Procedure: 07/20/24 Procedure(s) Performed: PREOPERATIVE DIAGNOSIS: 1-Cervical Spondylosis with Facet Arthropathy.without myelopathy. 2-cervical degenerative disc disease POSTOPERATIVE DIAGNOSIS:1-cervical spondylosis with facet arthropathy without myelopathy. 2-cervical degenerative disc disease PROCEDURES: Diagnostic Right C3, C4, C5 medial branch blocks, with fluoroscopic guidance (fluoroscopy images available in radiology department ) ( to target the facet joint at bilateral C3-4 , C4- 5 ) ANESTHESIA:moderate sedation with Versed 2 mg , and fentanyl 50 micrograms(sedation start time 09:53,end time 10:01 ) EBL: Minimal PROCEDURE INDICATION: The patient with neck pain secondary to cervical arthropathy unresponsive to more conservative treatments. PROCEDURE DESCRIPTION / TECHNIQUE: The patient was seen and identified in the preoperative area. Risks, benefits, complications, and alternatives were discussed with the patient, the patient agreed to proceed with the procedure and signed the consent. IV was started. Vital signs remained stable throughout the procedure. Patient was taken to the OR and time out was completed. The patient was placed in the prone position on the procedure table. A pillow was placed under the patients chest to increase the cervical interlaminar space. The cervical area was prepped and draped in the usual sterile fashion. Critical pause was taken. Vital signs were closely monitored during the procedure. Conscious sedation was used during the procedure to decrease patient´s anxiety. Using cross-table lateral fluoroscopy, the centroid of the trapezoid of right C3, C4 , C5 was identified, marked, and localized with 1% lidocaine 1 ml at each level for skin and Sub Q infiltrations . Subsequently, a 23 G 3 spinal needle was advanced guided by fluoroscopy to the centroid of the trapezoid of Right C3, C4 , C5,. [place] tip position was confirmed at the centroid of the trapezoids of Right C3 , C4 , C5 with anteroposterior fluoroscopy. Subsequently, 1.5 ml of preservative-free Ropivacaine 0.5% and half ml of the was injected after negative aspiration for blood and CSF. [place] was then removed intact the same procedure was repeated at the left C3 , C4 , C5 levels. COMPLICATIONS: No acute complications. COMMENTS: DISPOSITION / PLANS: The patient was placed in a supine position and transferred to the recovery area in a stable condition for observation and was discharged from the recovery room after meeting discharge criteria. Home discharge instructions given to the patient by the staff. The patient was reexamined prior to discharge. The patient will schedule a follow up in the clinic in 2-4 weeks.
--- NOTE | 2024-07-20 10:11 | FL ---
EXAMINATION TYPE: FL guided pain mgmt statistic Intraoperative/procedural fluoroscopic services were provided. CLINICAL INDICATION:Female, 28 years old with history of C/TH Facet Blk; , PHH FINDINGS: Fluoroscopic images demonstrating cervical thoracic facet block. No radiographic evidence for complic ation. Total fluoroscopy time is 9.8 seconds. DAP: 0.38047 mGym2 Please see the operative/procedural note for further details. [facility], , 07/20/2024 10:08 AM
[2024-07-20 10:14] VITALS: RESP 18
[2024-07-20 10:28] VITALS: BP 98/66; PULSE 65
== END 2024-07-20 10:43 | disposition home or self-care (01) ==
LOC: ORPAIN 08:22
PROVIDERS: ATTEND Specialist
DX: M47.812 Spondylosis without myelopathy or radiculopathy, cervical region (principal); M50.30 Other cervical disc degeneration, unspecified cervical region
CPT/HCPCS: 81025; 64490; 64491; J2250; J3010; J2795; 99152

== ENCOUNTER → 2024-08-01 | Outpatient (CLI) | payer BC ==
--- NOTE | 2024-08-02 06:51 | XR ---
EXAMINATION TYPE: XR KUB DATE OF EXAM: 08/01/2024 4:31 PM CLINICAL INDICATION: Female, 29 years old with history of N20.0 Calculus Kidney, pain TECHNIQUE: 2 supine views of the abdomen. COMPARISON: Abdominal x-ray June 13, 2024 FINDINGS: There is roughly 4 mm calculus lower pole level of right kidney at inferior L2 level redemo nstrated. Prior visualized left-sided nephrolithiasis is less well seen. Overall nonspecific but favor nonobstructive bowel gas pattern. Osseous structures are intact. Visual ized lung bases are clear. IMPRESSION: As above. [facility], , 08/02/2024 6:48 AM
== END | disposition home or self-care (01) ==
LOC: RADXRMAIN 16:12
PROVIDERS: ATTEND Urology
DX: N20.0 Calculus of kidney (principal)
CPT/HCPCS: 74018

== ENCOUNTER 2024-08-28 11:33 | Day surgery (SDC) | payer BC ==
[2024-08-27 09:20] VITALS: BMI 30.7
[2024-08-28] MEDS: IV FLUID CONTINUATION 1,000 ML IV ONE ×2 (11:57→13:15)
[2024-08-28 12:07] VITALS: RESP 16; TEMP 97.1
[2024-08-28] MEDS: LACTATED RINGERS 1,000 ML IV SCH (12:17)
[2024-08-28] MEDS ORDERED: MIDAZOLAM 2 MG/2 ML VIAL ONE (12:45)
[2024-08-28] MEDS ORDERED: fentaNYL (PF) 50 MCG/ML 2 ML AMP ONE (12:45)
[2024-08-28] MEDS ORDERED: ROPIVACAINE 5 MG/ML 30 ML VIAL ONE (12:45)
--- NOTE | 2024-08-28 13:18 | P.PCN ---
Description of Procedure: Preprocedure diagnosis. Cervical facet joint arthropathy, cervical spine spondylosis, cervical degenerative disc disease. Postprocedure diagnosis. As above. Procedure done. Bilateral C4-5, C3-4 facet joint (C4, C5, C3 medial branch of dorsal ramus) diagnostic injection with local anesthetics under fluoroscopic guidance. Anesthesia. IV sedation of Versed 2milligram, fentanyl 50 micrograms give in OR. Continuous pulse ox, EKG, blood pressure and verbal communication was maintained with the patient in OR. Sedation time- [id number] . Blood loss. None. Indication. Patient has got the diagnoses of cervical spondylolysis, facet joint arthropathy with neck pain. Discussed with the patient procedure, alternatives, complications including infection, bleeding, nerve damage, paralysis all of which could be permanent. Patient understands and all questions are answered. Procedure note. After getting consent patient in OR in prone position. Back of the neck was prepped with chlorhexidine and draped in sterile fashion. After injecting 3 mL of plain 1% lidocaine subcutaneously, a 22-gauge spinal needle was introduced under tunnel vision of the fluoroscope AP view at the waist of the articular pillar (lateral mass) at C4 vertebral level. In the lateral view of the fluoroscope it was confirmed that the tip of the needle stayed within the dorsal half of the articular pillar (lateral mass). So, right C4-5 facet joint was targeted by blocking right C4 and C5 medial branch, right C3-4 facet joint was targeted by blocking right C3 and C4 medial branch. In exactly the same way , after subcutaneous injection of lidocaine, 22-gauge spinal needles were introduced under tunnel vision of the fluoroscope AP view at the waist of the articular pillars (lateral mass) at C5 and C3 vertebral level. In the lateral view of the fluoroscope it was confirmed that the tip of the needle stayed within the dorsal half of the articular pillar (lateral mass). At each needle, 0.5 mL of 0.5% ropivacaine preservative-free was injected. In exactly same way left C4-5, C3-4 facet joints were targeted by blocking left C4, C5, C3 medial branch of dorsal ramus. After the procedure needle was taken out and bandage was applied. Disposition. Patient tolerated the procedure well. No complication. Discharged home in stable condition.
--- NOTE | 2024-08-28 13:21 | FL ---
EXAMINATION TYPE: FL guided pain mgmt statistic DATE OF EXAM: 08/28/2024 1:08 PM COMPARISON: Pre Operative Images if available both CT/MRI or plain film CLINICAL INDICATION: Female, 29 years old with history of FACET BLOCK; TECHNIQUE: FL guided pain mgmt statistic, multiple fluoroscopic images provided for procedure. DAP: 0.92764 mGym2 Gycm2 uGym2 cGycm2 or equivalent. FINDINGS: Fluoroscopic images during injection for pain management demonstrate multilevel degeneration changes throughout the spine. No evidence for fracture. No acute process identified. IMPRESSION: 1. No evidence for intraoperative complication. 2. Please see the operative/procedural note for further details. [facility], , 08/28/2024 1:19 PM
[2024-08-28 13:27] VITALS: BP 112/75; PULSE 88
== END 2024-08-28 13:42 | disposition home or self-care (01) ==
LOC: ORPAIN 11:33
PROVIDERS: ATTEND Pain Medicine Interventional Pain Medicine
DX: M47.812 Spondylosis without myelopathy or radiculopathy, cervical region (principal); M50.31 Other cervical disc degeneration, high cervical region; Z88.5 Allergy status to narcotic agent
CPT/HCPCS: 81025; 64490; 64491; J2250; J3010; J2795; 99152

== ENCOUNTER → 2024-09-17 | Outpatient (CLI) | payer BC ==
[2024-09-17 13:02] VITALS: BP 104/73; PULSE 114; RESP 17
--- NOTE | 2024-09-17 14:39 | P.PAINPG ---
PQRS Measure Charge Sheet Comment: HISTORY OF PRESENT ILLNESS: A 29 yr old female w at side presents today w severe and chronic neck pain > 3 mo secondary to radiculopathy, spondylosis and facet arthropathy without myelopathy for evaluation s/p BL MBB C3-C4/ C4-C5 #2. Pt states she experienced 80-85 % pain relief x 5 days s/p procedure. Pt states pain level is provoked at 8 /10 in intensity, constant, localized in the mid cervical spine, predominantly axial, throbbing in character w occasional shooting pain towards the sides of head. Pain is provoked by rotation, hyperextension. Pain is alleviated by PT x 8 wks since Apr 2024 which she is currently in, physician guided home exercises 4-5 times weekly since Apr 2024, massage therapy monthly since 2022 which she is currently in, heat, medications, use of a TENS unit at home, repositioning and rest . Interventional procedures include R TFESI C3-C4/ C4-C5 x1, R MBB C3-C4/ C4-C5 x1 Medications include Lyrica, Ibu, Cannabis REVIEW OF ORGAN SYSTEMS: CONSTITUTIONAL: No fevers or chills. No recent weight loss. NEUROLOGICAL: + numbness and tingling along the distal extremities. No seizure disorders or headaches. MUSCULOSKELETAL: + pain PSYCHIATRIC: Denies current depression or suicidal thoughts. Physical Examinations : Constitutional : Cooperative , not in acute distress . Neurologic : Cranial nerve II to XII intact. No focal neurological deficits. Psychiatric : alert & oriented x 3. Matching mood & appropriate affect. Judgment & insight intact. Musculoskeletal : Cervical Spine Motor strength in the deltoid and biceps: Normal right side. Normal Left side Motor strength biceps and the wrist extensors: Normal right side . Normal left side Motor strength in the triceps muscle: Normal right side. Normal left side Deep tendon reflexes: Normal at the biceps. Normal at Brachioradialis. Normal at triceps Vertebral body tenderness to deep palpation over C4 Cervical facet loading test: positive R> L C3-C4, C4-C5 Spurling test: positive bilaterally Neck distraction test: positive R C3- C4, C4-C5 Devonte sign: positive bilaterally Lumbar spine Motor strength lower extremities ,thigh and legs 5/5 Right side , 5/5 Left side Deep tendon reflexes : Normal Knee Jerk. Normal Ankle Jerk Vertebral body tenderness over Mccartney Test positive Lumbar facet Loading Test: positive R ight / positive Left Range of motion of the lumbar spine Flexion 30 degrees, extension 10 degrees Straight Leg Raise test: Left/ Right positive at degrees Virgilio test: positive right / positive left. Severe tenderness over the Sacroiliac joint on the Right / Left sides Gaenslen test: positive bilaterally Seated flexion test: positive bilaterally. Sacral spine : Severe tenderness over the Sacroiliac joint: right side / left side Range of motion: Flexion of the lumbar spine <60 degrees Range of motion: Extension of the lumbar spine <20 degrees Gaenslen's Test positive Virgilio test: positive right side / left side Thigh Thrust Test Sacral Thrust Test Imaging: MRI non contrast cervical spine from 03/20/24 reviewed Assessment/ Plan : C3-C4, C4-C5 radiculopathy Recommendation of L MBB C3-C4/ C4-C5 #2 (L x1/ R x2). Risks, benefits of procedure discussed and patient verbalized understanding. Admits to anti- coagulant use or medical history of diabetes. Protocol for discontinuation/ continuation of medications chyna procedure discussed. Minimal anesthesia including Fentanyl and Versed if clinically indicated. All questions answered. I have spent greater than 30 minutes on patient care today. Dr Varela was available by phone for the evaluation of this patient. The time was used to review the medical records including relevant urine studies and Prescription history (MAPs), review of the available imaging, evaluation and examination of the patient, coordination of care with the medical staff and if applicable referring physicians, as well as creation of the medical record PQRS Narrative: Smoking Status Never smoker Hx Alcohol Use (MH) No Home Medications: Ambulatory Orders FLUoxetine HCL [PROzac] 40 mg PO DAILY 30 Days #60 cap 04/14/22 traZODone HCL [Desyrel] 100 mg PO HS PRN 30 Days #60 tab 04/14/22 Avndazn-Inru-Ltoq [id number] [Excedrin] 2 each PO Q6HR PRN 06/11/24 Cetirizine HCl [Zyrtec] 10 mg PO DAILY 06/11/24 Melatonin 5 mg PO HS PRN 06/11/24 Omeprazole [PriLOSEC] 40 mg PO DAILY 06/11/24 Vitamin B Complex 1 each PO DAILY 06/11/24 Controlled Substance Measures - Controlled Substance Measures Is patient prescribed a controlled substance at discharge?: No
== END ==
LOC: PNWHC3 12:19
PROVIDERS: ATTEND Specialist
DX: M47.22 Other spondylosis with radiculopathy, cervical region (principal); F12.90 Cannabis use, unspecified, uncomplicated; Z88.5 Allergy status to narcotic agent
CPT/HCPCS: 99212

== ENCOUNTER → 2024-10-09 | Day surgery (SDC) | payer BC ==
[2024-10-04 14:30] VITALS: BMI 30.7
[~2024-10-09] MED LIST changes: -HYDROmorphone 0.5 MG/0.5 ML SYRINGE IVP PRN; -MIDAZOLAM 2 MG/2 ML VIAL IV PRN; +MIDAZOLAM 2 MG/2 ML VIAL ONE; +ONDANSETRON 4 MG/2 ML VIAL ONE; +ROPIVACAINE 5 MG/ML 30 ML VIAL ONE; +fentaNYL (PF) 50 MCG/ML 2 ML AMP ONE
[2024-10-09] MEDS: LACTATED RINGERS 1,000 ML IV SCH (07:17)
[2024-10-09] MEDS: IV FLUID CONTINUATION 1,000 ML IV ONE ×2 (07:18→08:31)
[2024-10-09 07:28] VITALS: RESP 16; TEMP 96.9
[2024-10-09 08:29] VITALS: BP 108/72
--- NOTE | 2024-10-09 08:40 | P.PCN ---
Description of Procedure: Preprocedure diagnosis. Cervical facet joint arthropathy, cervical spine spondylosis, cervical degenerative disc disease. Postprocedure diagnosis. As above. Procedure done. left C4-5, C3-4 facet joint (C4, C5, C3 medial branch of dorsal ramus) diagnostic injection with local anesthetics under fluoroscopic guidance. Anesthesia. IV sedation of Versed 2 milligram, fentanyl 50 micrograms give in OR. Continuous pulse ox, EKG, blood pressure and verbal communication was maintained with the patient in OR. Sedation time- start 804 end 820. Blood loss. None. Indication. Patient has got the diagnoses of cervical spondylolysis, facet joint arthropathy with neck pain. Discussed with the patient procedure, alternatives, complications including infection, bleeding, nerve damage, paralysis all of which could be permanent. Patient understands and all questions are answered. Procedure note. After getting consent patient in OR in prone position. Back of the neck was prepped with chlorhexidine and draped in sterile fashion. After injecting 3 mL of plain 1% lidocaine subcutaneously, a 22-gauge spinal needle was introduced under tunnel vision of the fluoroscope AP view at the waist of the articular pillar (lateral mass) at C4 vertebral level. In the lateral view of the fluoroscope it was confirmed that the tip of the needle stayed within the dorsal half of the articular pillar (lateral mass). So, left C4-5 facet joint was targeted by blocking left C4 and C5 medial branch, left C3-4 facet joint was targeted by blocking left C4 and C3 medial branch. In exactly the same way , after subcutaneous injection of lidocaine, 22-gauge spinal needles were introduced under tunnel vision of the fluoroscope AP view at the waist of the articular pillars (lateral mass) at C3 and C5 vertebral level. In the lateral view of the fluoroscope it was confirmed that the tip of the needle stayed within the dorsal half of the articular pillar (lateral mass). At each needle, 0.5 mL of 0.5% ropivacaine preservative-free was injected. After the procedure needle was taken out and bandage was applied. Disposition. Patient tolerated the procedure well. No complication. Discharged home in stable condition.
[2024-10-09 08:56] VITALS: PULSE 80
--- NOTE | 2024-10-09 09:00 | FL ---
EXAMINATION TYPE: FL guided pain mgmt statistic DATE OF EXAM: 10/09/2024 HISTORY: Fluoroscopy time Total dose area product (DAP) in uGy*m?, mGy*cm? (or similar): 0.33268 IMPRESSION: 1. Fluoroscopy time. [facility], , 10/09/2024 8:58 AM
== END ==
LOC: ORPAIN 07:01
PROVIDERS: ATTEND Pain Medicine Interventional Pain Medicine
DX: M47.812 Spondylosis without myelopathy or radiculopathy, cervical region (principal); M50.30 Other cervical disc degeneration, unspecified cervical region
CPT/HCPCS: 81025; 64490; 64491; J2250; J2405; J3010; J2795; 99152